=== PATIENT | male | born 1945 | race Caucasian/White ===

== ENCOUNTER 2023-04-09 13:57 | Inpatient (IN) ==
[2023-04-09] MEDS ORDERED: MoRPHine SULFATE 4 MG/ML 1 ML CARP\\VIAL IV PRN (14:10)
[2023-04-09] MEDS ORDERED: ONDANSETRON INJ 2 MG/ML 2 ML VIAL IV STA (14:10)
[2023-04-09] MEDS ORDERED: PANTOprazole 40 MG in SYRINGE 0 ML IV ONE ×2 (14:10→16:40)
[2023-04-09] MEDS ORDERED: SODIUM CHLORIDE 0.9% 1,000 ML IV STA (14:10)
--- NOTE | 2023-04-09 14:15 | Emergency Department Note ---
Impression & Plan Acute upper gastrointestinal bleeding, Abdominal pain, Anemia, Angioedema ED Provider Note NAME: BRIELLE ASHTON AGE: 77 SEX: M : 1945 ARRIVES VIA: Ambulance INFORMANT: Patient, ED PROVIDER(S): Akira Trevizo DO CHIEF COMPLAINT: Abdominal pain HPI: The patient is a 77-year-old male who presented to the emergency department by ambulance for an evaluation of abdominal pain. The patient has a history of recently diagnosed colon cancer was treated with surgery. The patient was treated at [facility]. The patient started noticing dark stool and abdominal pain. He denies having any fever or vomiting. He denies having any chest pain or difficulty breathing. He was seen at the GI office today and sent directly to the emergency department by ambulance. The patient did not have a rectal exam prior to coming to the emergency department. ROS: See above HPI for pertinent positives & negatives. A total of 10 systems reviewed and were otherwise negative. PAST MEDICAL HISTORY: See Below PAST SURGICAL HISTORY: See Below FAMILY HISTORY: See Below SOCIAL HISTORY: See Below HOME MEDICATIONS: See Below ALLERGIES: See Below VITALS: See Below PHYSICAL EXAMINATION: GENERAL: Patient is awake alert in no acute distress patient is resting comfortably and showing no signs of anxiety EYES: The conjunctivae are pale. The pupils are round and reactive. EARS, NOSE, MOUTH AND THROAT: The nose is without any evidence of any deformity. NECK: The neck is nontender and supple. RESPIRATORY: Normal respiratory effort is noted there is no evidence of wheezing rhonchi or rales CARDIOVASCULAR: Regular rate and rhythm noted there no murmurs rubs or gallops normal S1 normal S2. GASTROINTESTINAL: The abdomen was soft and mildly distended. There is diffuse tenderness to palpation but no guarding or rigidity. Rectal exam revealed brown stool which was heme positive. MUSCULOSKELETAL/EXTREMITIES: There is no evidence of gross deformity full range of motion is noted in the hips and shoulders. SKIN: Bilateral pedal edema was noted. Skin was cool and dry. Skin was pale. NEUROLOGIC: Patient is awake alert and oriented x3 MEDICAL DECISION MAKING: The patient is a 77-year-old male who presented to the emergency department for an evaluation of GI bleeding. The patient is status post ileocolectomy for a bowel mass. The patient was at a follow-up appointment when he complained of abdominal pain as well as dark stool. He was sent to the emergency department for further evaluation. The patient was found to have signs of GI bleeding on physical exam. I discussed the patient's laboratory and radiographic studies with him. He was treated with IV fluids as well as IV Protonix. The patient also had some upper lip swelling. The patient states that this has been ongoing for some time. It does appear to be consistent with angioedema and the patient does take an AMARI inhibitor. I discussed the patient's condition with the on- call [facility]. They have agreed to evaluate the patient in the emergency department for further management and disposition. Triage Nursing notes reviewed. Prior medical records reviewed. I reviewed the patient's operative report that the significant other brought with her to the emergency department. Vital Signs: reviewed and remarkable for elevated blood pressure. Differential diagnosis: Etiologies such as appendicitis, diverticulitis, obstruction, inflammatory bowel disease, renal colic, PUD, biliary pathology, pancreatitis, mesenteric ischemia, aortic pathology, infections, genitourinary, UTI, perforated viscus, as well as others were entertained. ER treatment provided: See below Diagnostics interpreted by me: ECG: EKG was obtained in the emergency department. My interpretation is sinus rhythm at 77 bpm. There is no ectopy. Early transition was noted with nonspecific interventricular conduction delay. No previous tracing available. Cardiac Monitoring: An order was placed for continuous cardiac monitoring. The monitor shows a rate of 64 bpm with sinus rhythm. Laboratory studies: As stated above and show below. Imaging studies: See below. Radiographic imaging was reviewed by myself Consultation(s): I discussed this case with Dr. Haider who is on-call for the [facility] group. Past Med/Surg History Medical History Interstitial lung disease Past heart attack Psoriasis GERD (gastroesophageal reflux disease) Oral cancer Surgical History Status post aortic coarctation stent placement History of cancer surgery Social History Smoking Status: Current every day smoker Do You Dip or Chew Tobacco: No; Hx Alcohol Use: No Hx Substance Use: No Preferred Language: Latvian Communication Ability: Effective Visual Impairment: Partially Limited Hearing Ability: Hard of Hearing Shove Up Required: No Beliefs That Will Affect Care: None marital status: Current Living Situation: Spouse and Significant Other current occupational status: disabled Feels Safe at Home: Yes Allergies Allergies Allergy/AdvReac Type Severity Reaction Status Date / Time No Known Allergies Allergy Verified 04/09/23 15:26 Home Meds Home Medications Medication Instructions Recorded Confirmed omega 3 350 mg-dha 235 mg-epa 90 1 cap PO QDL 05/19/18 04/09/23 mg-fish oil 597 mg capsule,delay rel ([place]-3) aspirin 81 mg tablet 81 mg PO DAILY 04/09/23 04/09/23 cholecalciferol (vitamin D3) 50 50 mcg PO DAILY 04/09/23 04/09/23 mcg (2,000 unit) tablet (Vitamin D3) lisinopril 20 mg tablet 20 mg PO QAM 04/09/23 04/09/23 rosuvastatin 10 mg tablet 10 mg PO HS 04/09/23 04/09/23 vitamin B complex 1 tab PO DAILY 04/09/23 04/09/23 vitamin E 100 unit tablet 100 unit PO QAM 04/09/23 04/09/23 Results & Data (ED) Vital Signs Vital Signs - 24 hr 04/09/23 14:04 04/09/23 14:10 04/09/23 14:10 Temperature 36.4 C L 36.6 C Temperature Source Oral Oral Pulse Rate 76 75 Pulse Rate [Apical] 77 Pulse Rate from SpO2 Sensor Respiratory Rate 18 20 Respiratory Effort / Characteristics Non-Labored Spontaneous Respiratory Depth Normal Respiratory Pattern Regular Blood Pressure [Left Arm] 172/47 H Blood Pressure Mean [Left Arm] 88 Blood Pressure Position Sitting Blood Pressure Position [Left Arm] Lying Pulse Oximetry 100 100 100 Oxygen Delivery Method Room Air Room Air Room Air Sepsis Recent Fever Within 48 Hours No Sepsis New/Unexplained Change in Mental Status No Sepsis Action Taken by Nursing No Action Required 04/09/23 14:17 04/09/23 14:20 04/09/23 14:30 Temperature Temperature Source Pulse Rate 75 76 81 Pulse Rate [Apical] Pulse Rate from SpO2 Sensor 78 76 81 Respiratory Rate 19 18 17 Respiratory Effort / Characteristics Respiratory Depth Respiratory Pattern Blood Pressure [Left Arm] Blood Pressure Mean [Left Arm] Blood Pressure Position Blood Pressure Position [Left Arm] Pulse Oximetry 99 100 100 Oxygen Delivery Method Sepsis Recent Fever Within 48 Hours Sepsis New/Unexplained Change in Mental Status Sepsis Action Taken by Nursing 04/09/23 14:40 04/09/23 15:05 04/09/23 15:10 Temperature Temperature Source Pulse Rate 70 74 68 Pulse Rate [Apical] Pulse Rate from SpO2 Sensor 72 75 68 Respiratory Rate 13 19 Respiratory Effort / Characteristics Respiratory Depth Respiratory Pattern Blood Pressure [Left Arm] Blood Pressure Mean [Left Arm] Blood Pressure Position Blood Pressure Position [Left Arm] Pulse Oximetry 98 99 98 Oxygen Delivery Method Sepsis Recent Fever Within 48 Hours Sepsis New/Unexplained Change in Mental Status Sepsis Action Taken by Nursing 04/09/23 15:20 04/09/23 15:30 04/09/23 15:40 Temperature Temperature Source Pulse Rate 70 64 64 Pulse Rate [Apical] Pulse Rate from SpO2 Sensor 62 65 64 Respiratory Rate 17 18 23 Respiratory Effort / Characteristics Respiratory Depth Respiratory Pattern Blood Pressure [Left Arm] Blood Pressure Mean [Left Arm] Blood Pressure Position Blood Pressure Position [Left Arm] Pulse Oximetry 97 97 97 Oxygen Delivery Method Sepsis Recent Fever Within 48 Hours Sepsis New/Unexplained Change in Mental Status Sepsis Action Taken by Nursing 04/09/23 15:50 04/09/23 16:00 04/09/23 16:10 Temperature Temperature Source Pulse Rate 62 60 63 Pulse Rate [Apical] Pulse Rate from SpO2 Sensor 62 60 63 Respiratory Rate 19 19 15 Respiratory Effort / Characteristics Respiratory Depth Respiratory Pattern Blood Pressure [Left Arm] Blood Pressure Mean [Left Arm] Blood Pressure Position Blood Pressure Position [Left Arm] Pulse Oximetry 97 98 100 Oxygen Delivery Method Sepsis Recent Fever Within 48 Hours Sepsis New/Unexplained Change in Mental Status Sepsis Action Taken by Nursing 04/09/23 16:20 04/09/23 16:30 Temperature Temperature Source Pulse Rate 63 64 Pulse Rate [Apical] Pulse Rate from SpO2 Sensor 63 65 Respiratory Rate 18 19 Respiratory Effort / Characteristics Respiratory Depth Respiratory Pattern Blood Pressure [Left Arm] Blood Pressure Mean [Left Arm] Blood Pressure Position Blood Pressure Position [Left Arm] Pulse Oximetry 98 98 Oxygen Delivery Method Room Air Sepsis Recent Fever Within 48 Hours Sepsis New/Unexplained Change in Mental Status Sepsis Action Taken by [facility] Medications Current Medication List: was personally reviewed by me Laboratory Data Attestation: I reviewed the patient's lab results. 04/09/23 14:25 04/09/23 14:25 Lab Results 04/09/23 04/09/23 Range/Units 14:25 14:29 WBC 8.79 (4.8-10.8) K/ul RBC 2.78 L (4.70-6.10) M/uL Hgb 7.6 L (14.0-18.0) g/dl POC Hgb 8.2 L (14.0-18.0) g/dl Hct 24.7 L (42.0-52.0) % POC Hct 24 L (42-52) % MCV 88.8 (80.0-100.0) fL MCH 27.3 (25.0-34.0) pg MCHC 30.8 L (32.0-36.0) g/dL RDW Std Deviation 46.3 (36.4-46.3) fL RDW Coeff of Monet 14.3 (11.5-14.5) % Plt Count 470 H (130-400) K/uL MPV 8.5 L (9.4-12.4) fL Immature Gran % (Auto) 0.3 % Neut % (Auto) 76.6 % Lymph % (Auto) 13.0 % [place] % (Auto) 8.8 % Eos % (Auto) 1.0 % Baso % (Auto) 0.3 % Neut # (Auto) 6.73 H (1.40-6.50) K/uL Lymph # (Auto) 1.14 L (1.20-3.40) K/uL [place] # (Auto) 0.77 H (0.11-0.59) K/uL Eos # (Auto) 0.09 (0.00-0.50) K/uL Baso # (Auto) 0.03 (0.00-0.20) K/uL Immature Gran # (Auto) 0.03 (0.01-0.20) K/uL Polychromasia 1+ PT 10.9 (9.0-12.0) Seconds INR 1.0 (0.9-1.1) APTT 27.2 (21.0-31.0) Seconds PTT Ratio 1.0 POC Sodium 139 (135-144) mmol/L Sodium 139 (136-145) mmol/L POC Potassium 3.6 (3.3-5.0) mmol/L Potassium 3.5 (3.5-5.1) mmol/L POC Chloride 104 (101-112) mmol/L Chloride 107 (98-107) mmol/L Carbon Dioxide 25 (21-32) mmol/L POC Total CO2 23 L (24-31) mmol/L Anion Gap 7 (3-11) POC Anion Gap 17.0 (16-25) mmol/L POC BUN 13 (7-18) mg/dl BUN 15 (6-23) mg/dl Creatinine 0.93 (0.6-1.4) mg/dl POC Creatinine 1.0 (0.6-1.3) mg/dl Est Cr Clr Drug Dosing 70.9 ml/min Est GFR ( Amer) 92.7 ml/min Est GFR (Non-Af Amer) 80.0 ml/min BUN/Creatinine Ratio 16.1 (10-20) Glucose 143 H (70-99(Fasting)) mg/dl POC Glucose (other) 142 H (70-99) mg/dl Calcium 8.9 (8.6-10.3) mg/dl POC Ioniz Calcium Tanner 1.21 (1.12-1.32) mmol/l Total Bilirubin 0.2 (0.2-1.0) mg/dl AST 14 (13-39) U/L ALT 9 (7-52) U/L Alkaline Phosphatase 58 (34-104) U/L Troponin I High Sens 8.4 (0-20) pg/ml Total Protein 6.3 (6.0-8.3) gm/dl Albumin 3.3 L (3.4-5.0) gm/dl Globulin 3.0 (2.5-4.0) gm/dl Albumin/Globulin Ratio 1.1 (0.9-2) Lipase 25 (11-82) U/L Blood Type A Positive Antibody Screen POSITIVE A Administered Medications Morphine Sulfate (Morphine Sulfate 4 Mg/Ml 1 Ml Carp\Vial) 4 mg IV Q15M PRN PRN Reason: Pain Stop: 04/23/23 14:09 Last Admin: 04/09/23 14:34 Dose: 4 mg Documented By: QGV Discontinued Medications Pantoprazole Sodium 40 mg/ (Syringe) 10 mls @ 5 mls/min IV NOW ONE Stop: 04/09/23 14:11 Last Admin: 04/09/23 14:35 Dose: 5 mls/min Documented By: QGV Sodium Chloride (Nss) 1,000 mls @ 999 mls/hr IV .Q1H1M STA Stop: 04/09/23 15:10 Last Admin: 04/09/23 14:36 Dose: 999 mls/hr Documented By: QGV Ioversol (Optiray 320 500ml) 85 ml IV ONCE ONE Stop: 04/09/23 14:59 Last Admin: 04/09/23 14:58 Dose: 85 ml Documented By: ISHAN Ondansetron HCl (Ondansetron Inj 2 Mg/Ml 2 Ml Vial) 4 mg IV NOW STA Stop: 04/09/23 14:11 Last Admin: 04/09/23 14:35 Dose: 4 mg Documented By: QGV Imaging Data Attestation: I personally reviewed and interpreted this imaging study as follows: My Impression: CT of the abdomen and pelvis was obtained in the emergency department. My interpretation is hiatal hernia, no free air, final report below Radiologist's Impression: Abdomen/Pelvis CT 04/09/23 14:[address] WITH IV CONTRAST CT DOSE: 1105.44 mGy.cm HISTORY: Acute GI bleed GIB, abd pain TECHNIQUE: Multiaxial CT images of the abdomen and pelvis were performed following the IV administration of 85 cc of Optiray, A dose lowering technique was utilized adhering to the principles of ALARA. COMPARISON STUDY: None. FINDINGS: Cardiomegaly. Extensive coronary artery calcifications. Bibasilar atelectasis/fibrosis. Right [place] hernia. No free air. Unremarkable spleen, and pancreas. Adrenal gland thickening suggestive of benign hyperplasia. Contracted gallbladder with mild nonspecific wall thickening. Unremarkable liver. Patent portal vein. 4 mm nonobstructing calculus of the inferior pole left kidney. 1.8 cm cyst of the superior pole left kidney. Cysts of the right kidney measure up to 3.3 cm. No ureteral calculi or hydronephrosis. Prostatomegaly. Urinary bladder wall thickening with partial distention. Atherosclerosis of the aorta and branch vessels. Fusiform infrarenal ectasia, 2.6 x 2.7 cm. There is irregular circumferential wall thickening in the distal esophagus which is partially imaged with mucosal hyperemia, image 16 series 3. There are adjacent subcentimeter paraesophageal lymph nodes with inflammatory stranding and small amount of fluid. Upstream fluid distention of the esophagus with moderate sized hiatal hernia. Moderate rectal fecal retention. Colonic diverticulosis. Postoperative changes of right hemicolectomy with ileocolic anastomosis. Postoperative changes of the intra-abdominal wall with small fat filled anterior abdominal wall hernias. No acute fracture. IMPRESSION: 1. Partially imaged irregular circumferential wall thickening with mucosal hyperemia involving the distal esophagus with adjacent inflammatory stranding and small amount of fluid. Differential considerations include a severe esophagitis versus mucosal malignancy. Correlation with endoscopy is needed. 2. Subcentimeter periesophageal lymph nodes. 3. Moderate sized hiatal hernia. 4. Colonic diverticulosis. 5. Left nephrolithiasis. ACT 112: Positive. There are findings on this exam that require communication between the performing entity and the patient following Patient Test Result Information Act ([place] Act 112) guidelines. The above report was generated using voice recognition software. It may contain grammatical, syntax or spelling errors. Electronically signed by: Vamsi Knox M.D. 04/09/2023 3:30 PM Chest X-Ray 04/09/23 14:11 XR chest 1V portable CLINICAL HISTORY: abd pain TECHNIQUE: Single frontal radiograph of the chest was obtained. Comparison: None available at the time of this dictation. FINDINGS: No lines and tubes are seen. Calcified aortic knob is seen. The lungs are clear. No evidence of pleural effusion or pneumothorax. IMPRESSION: No acute chest disease. ACT 112: Negative or not required by law. Electronically signed by: Ricky Hawk M.D. 04/09/2023 3:40 PM Discharge Plan Visit Data Chief Complaint: Abdominal Pain Stated Complaint: abdominal pain ED Provider: Akira Trevizo Discharge Problem: Acute upper gastrointestinal bleeding, Abdominal pain, Anemia, Angioedema Patient Disposition: Being Evaluated by Hospitalist Forms Stand Alone Forms: [facility] Prescriptions Prescriptions: No Action [place]-3 350 mg-235 mg- 90 mg-597 mg Capsule,Delayed Release(Dr/Ec) 1 cap PO QDL lisinopril 20 mg tablet 20 mg PO QAM vitamin B complex Tablet 1 tab PO DAILY aspirin 81 mg Tablet 81 mg PO DAILY vitamin E 100 unit Tablet 100 unit PO QAM rosuvastatin 10 mg tablet 10 mg PO HS cholecalciferol (vitamin D3) [Vitamin D3] 50 mcg (2,000 unit) Tablet 50 mcg PO DAILY Referrals Referrals: PCP,NO [Physician] - Discharge Problem: Abdominal pain Qualifiers: Abdominal location: generalized Qualified Code(s): R10.84 - Generalized abdominal pain Anemia Qualifiers: Anemia type: unspecified type Qualified Code(s): D64.9 - Anemia, unspecified Angioedema Qualifiers: Encounter type: initial encounter Qualified Code(s): T78.3XXA - Angioneurotic edema, initial encounter
[2023-04-09 14:42] LABS: iSTAT Hemoglobin 8.2 g/dl (14.0-18.0); iSTAT Ionized Calcium 1.21 mmol/l (1.12-1.32); iSTAT Potassium 3.6 mmol/L (3.3-5.0)
[2023-04-09 14:48] LABS: Basophils # (auto) 0.03 K/uL (0.00-0.20); Basophils % (auto) 0.3 %; Eosinophils # (auto) 0.09 K/uL (0.00-0.50); Hematocrit (blood only) 24.7 % (42.0-52.0); Hemoglobin 7.6 g/dl (14.0-18.0); Immature Granulocytes # (auto) 0.03 K/uL (0.01-0.20); Immature Granulocytes % (auto) 0.3 %; Lymphocytes # (auto) 1.14 K/uL (1.20-3.40); Mean Corpuscular Hemoglobin 27.3 pg (25.0-34.0); Mean Corpuscular Hgb Conc 30.8 g/dL (32.0-36.0); Mean Corpuscular Volume 88.8 fL (80.0-100.0); Mean Platelet Volume 8.5 fL (9.4-12.4); Monocytes # (auto) 0.77 K/uL (0.11-0.59); Monocytes % (auto) 8.8 %; Neutrophils # (auto) 6.73 K/uL (1.40-6.50); Neutrophils % (auto) 76.6 %; Platelet Count 470 K/uL (130-400); RDW Coefficient of Variation 14.3 % (11.5-14.5); RDW Standard Deviation 46.3 fL (36.4-46.3); Red Blood Count 2.78 M/uL (4.70-6.10); White Blood Count 8.79 K/ul (4.8-10.8)
[2023-04-09] MEDS ORDERED: OPTIRAY 320 500ml IV ONE (14:58)
[2023-04-09 15:00] LABS: Albumin Globulin Ratio 1.1 (0.9-2); Albumin Level 3.3 gm/dl (3.4-5.0); BUN Creatinine Ratio 16.1 (10-20); Bilirubin,Total 0.2 mg/dl (0.2-1.0); Calcium 8.9 mg/dl (8.6-10.3); Creatinine Clr Calc Pharmacy 70.9 ml/min; Est GFR (African American) 92.7 ml/min; Potassium 3.5 mmol/L (3.5-5.1); Total Protein 6.3 gm/dl (6.0-8.3)
[2023-04-09 15:07] LABS: Polychromasia 1+; Troponin I High Sensitivity 8.4 pg/ml (0-20)
[2023-04-09 15:14] LABS: Partial Thromboplastin Time 27.2 Seconds (21.0-31.0); Prothrombin Time 10.9 Seconds (9.0-12.0)
--- NOTE | 2023-04-09 15:31 | CT Scan Report ---
ABDOMEN AND PELVIS CT WITH IV CONTRAST CT DOSE: 1105.44 mGy.cm HISTORY: Acute GI bleed GIB, abd pain TECHNIQUE: Multiaxial CT images of the abdomen and pelvis were performed following the IV administrat ion of 85 cc of Optiray, A dose lowering technique was utilized adhering to the principles of ALARA. COMPARISON STUDY: None. FINDINGS: Cardiomegaly. Extensive coronary artery calcifications. Bibasilar atelectasis/fibrosis. Rig ht [place] hernia. No free air. Unremarkable spleen, and pancreas. Adrenal gland thickening suggest brian of benign hyperplasia. Contracted gallbladder with mild nonspecific wall thickening. Unremarkable liver. Patent portal vein. 4 mm nonobstructing calculus of the inferior pole left kidney. 1.8 cm cyst of the superior pole left kidney. Cysts of the right kidney measure up to 3.3 cm. No ureteral calculi or hydronephrosis. Prosta tomegaly. Urinary bladder wall thickening with partial distention. Atherosclerosis of the aorta and b [place] vessels. Fusiform infrarenal ectasia, 2.6 x 2.7 cm. There is irregular circumferential wall thickening in the distal esophagus which is partially imaged with mucosal hyperemia, image 16 series 3. There are adjacent subcentimeter paraesophageal lymph node s with inflammatory stranding and small amount of fluid. Upstream fluid distention of the esophagus w ith moderate sized hiatal hernia. Moderate rectal fecal retention. Colonic diverticulosis. Postoperat brian changes of right hemicolectomy with ileocolic anastomosis. Postoperative changes of the intra-abd ominal wall with small fat filled anterior abdominal wall hernias. No acute fracture. IMPRESSION: 1. Partially imaged irregular circumferential wall thickening with mucosal hyperemia involving the di stal esophagus with adjacent inflammatory stranding and small amount of fluid. Differential considera tions include a severe esophagitis versus mucosal malignancy. Correlation with endoscopy is needed. 2. Subcentimeter periesophageal lymph nodes. 3. Moderate sized hiatal hernia. 4. Colonic diverticulosis. 5. Left nephrolithiasis. ACT 112: Positive. There are findings on this exam that require communication between the performing entity and the patient following Patient Test Result Information Act ([place] Act 112) guidelines. The above report was generated using voice recognition software. It may contain grammatical, syntax o r spelling errors. Electronically signed by: Vamsi Knox M.D. 04/09/2023 3:30 PM
--- NOTE | 2023-04-09 15:41 | XRay Report ---
XR chest 1V portable CLINICAL HISTORY: abd pain TECHNIQUE: Single frontal radiograph of the chest was obtained. Comparison: None available at the time of this dictation. FINDINGS: No lines and tubes are seen. Calcified aortic knob is seen. The lungs are clear. No evidence of pleur al effusion or pneumothorax. IMPRESSION: No acute chest disease. ACT 112: Negative or not required by law. Electronically signed by: Ricky Hawk M.D. 04/09/2023 3:40 PM
--- NOTE | 2023-04-09 16:45 | History & Physical Report ---
Date of Service April 09, 2023 Assessment & Plan (1) Acute upper gastrointestinal bleeding: Plan: Last known Hgb 9.2 March 11 on [facility] [place] EHR Admission Hemoglobin 7.6 Pantoprazole 80mg IV bolus and drip Trend Hgb q6h Transfuse to aim Hgb > 7 NPO Consult gastroenterology (2) Colon adenocarcinoma: Plan: s/p laparoscopic assisted ascending colectomy Well-differentiated with resection margins uninvolved Followed up with colorectal surgeon today (3) Past heart attack: Plan: Prior 9 stent per patient reports Hold aspirin and lisinopril Continue rosuvastatin (4) Acute blood loss anemia: Plan VTE Prophylaxis - chemical contraindicated Diet - NPO Disposition - admit to med/tele Admission and Anticipated Discharge Date Admission Date: April 09, 2023 History of Present Illness Chief Complaint: Epigastric/chest pain Primary Care Provider: Vahid Arora Steve Lopez is a 77 year old male who presents to the ER with epigastric pain, generalized weakness and fatigue. Very difficult to get a good history from the patient but generally he had laparoscopic assisted ascending colectomy at [facility] on March 04. He had a routine outpatient follow up with his colorectal surgeon today and he appeared pale with generalized fatigue therefore sent to the ER for further evaluation. His last hemoglobin pulled from the [facility] EHR was 9.2 on March 11 (day prior to discharge). Per outpatient note he was having chest.epigastric pain since thanksgi however er patient it has been going on for months intermittently. He denies any current pain but his last pain was earlier today last 2 hours prior to arrival in the ER. Pain is not exertion and associated with food. He takes tums every night for heartburn. No NSAID use. Takes a daily aspirin for history of heart attack with 9 prior stents per report. He also notes a history of stomach ulcers and bleeds - his son notes in 2003 he was found in a puddle of blood, but does not take any PPI or H2 darius. Triage reports melena although the patient denies this to me and is only having a bowel movement once or twice a week. Allergies Allergy/AdvReac Type Severity Reaction Status Date / Time No Known Allergies Allergy Verified 04/09/23 15:26 Home Medications Medication Instructions Recorded Confirmed Type omega 3 350 mg-dha 235 mg-epa 90 1 cap PO QDL 05/19/18 04/09/23 History mg-fish oil 597 mg capsule,delay rel ([place]-3) aspirin 81 mg tablet 81 mg PO DAILY 04/09/23 04/09/23 History cholecalciferol (vitamin D3) 50 50 mcg PO DAILY 04/09/23 04/09/23 History mcg (2,000 unit) tablet (Vitamin D3) lisinopril 20 mg tablet 20 mg PO QAM 04/09/23 04/09/23 History rosuvastatin 10 mg tablet 10 mg PO HS 04/09/23 04/09/23 History vitamin B complex 1 tab PO DAILY 04/09/23 04/09/23 History vitamin E 100 unit tablet 100 unit PO QAM 04/09/23 04/09/23 History Past Med/Surg History Medical History (Updated 04/10/23 @ 06:41 by Graham Haider MD) Interstitial lung disease Past heart attack Psoriasis GERD (gastroesophageal reflux disease) 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 Surgical History Status post aortic coarctation stent placement History of cancer surgery Social History Smoking Status: Current every day smoker Tobacco Type: Cigarettes Do You Dip or Chew Tobacco: No; Hx Alcohol Use: No Hx Substance Use: No Preferred Language: Citizen Of [place] Communication Ability: Effective Visual Impairment: Partially Limited Hearing Ability: Hard of Hearing Cloth Presser Required: No Beliefs That Will Affect Care: None marital status: Current Living Situation: Significant Other current occupational status: disabled Feels Safe at Home: Yes Assistive Devices: Cane Review of Systems Review of Systems: All systems reviewed & are unremarkable except as noted in HPI & below Physical Exam Constitutional: WD/WN, vitals as above ENMT: Micrognathia Respiratory: normal respiratory effort, lungs clear to auscultation Cardiovascular: RRR, no murmur, no edema Gastrointestinal (Abdomen): Inspection/Auscultation: abdomen normal to inspection Percussion/Palpation: + abdomen tender (epigastric) and abdomen soft; no guarding and abdomen not rigid Skin: no rashes, warm and dry Neurologic: moves all extremities and awake; not confused Results & Data Results & Data Vital Signs (Past 12 Hours) Vital Signs Temp Pulse Pulse Resp BP Pulse Ox O2 Del Method 04/09/23 16:30 64 19 98 Room Air 04/09/23 16:20 63 18 98 04/09/23 16:10 63 15 100 04/09/23 16:00 60 19 98 04/09/23 15:50 62 19 97 04/09/23 15:40 64 23 97 04/09/23 15:30 64 18 97 04/09/23 15:20 70 17 97 04/09/23 15:10 68 19 98 04/09/23 15:05 74 13 99 04/09/23 14:40 70 98 04/09/23 14:30 81 17 100 04/09/23 14:20 76 18 100 04/09/23 14:17 75 19 99 04/09/23 14:10 36.6 C 77 20 172/47 H 100 Room Air 04/09/23 14:10 75 100 Room Air 04/09/23 14:04 36.4 C L 76 18 100 Room Air Laboratory Results Abnormal lab results 04/09/23 04/09/23 Range/Units 14:25 14:29 RBC 2.78 L (4.70-6.10) M/uL Hgb 7.6 L (14.0-18.0) g/dl POC Hgb 8.2 L (14.0-18.0) g/dl Hct 24.7 L (42.0-52.0) % POC Hct 24 L (42-52) % MCHC 30.8 L (32.0-36.0) g/dL Plt Count 470 H (130-400) K/uL MPV 8.5 L (9.4-12.4) fL Neut # (Auto) 6.73 H (1.40-6.50) K/uL Lymph # (Auto) 1.14 L (1.20-3.40) K/uL [place] # (Auto) 0.77 H (0.11-0.59) K/uL POC Total CO2 23 L (24-31) mmol/L Glucose 143 H (70-99(Fasting)) mg/dl POC Glucose (other) 142 H (70-99) mg/dl Albumin 3.3 L (3.4-5.0) gm/dl Antibody Screen POSITIVE A Diagnostic Findings XR chest 1V portable CLINICAL HISTORY: abd pain TECHNIQUE: Single frontal radiograph of the chest was obtained. Comparison: None available at the time of this dictation. FINDINGS: No lines and tubes are seen. Calcified aortic knob is seen. The lungs are clear. No evidence of pleural effusion or pneumothorax. IMPRESSION: No acute chest disease. ABDOMEN AND PELVIS CT WITH IV CONTRAST CT DOSE: 1105.44 mGy.cm HISTORY: Acute GI bleed GIB, abd pain TECHNIQUE: Multiaxial CT images of the abdomen and pelvis were performed following the IV administration of 85 cc of Optiray, A dose lowering technique was utilized adhering to the principles of ALARA. COMPARISON STUDY: None. FINDINGS: Cardiomegaly. Extensive coronary artery calcifications. Bibasilar atelectasis/fibrosis. Right Bochdalek hernia. No free air. Unremarkable spleen, and pancreas. Adrenal gland thickening suggestive of benign hyperplasia. Contracted gallbladder with mild nonspecific wall thickening. Unremarkable liver. Patent portal vein. 4 mm nonobstructing calculus of the inferior pole left kidney. 1.8 cm cyst of the superior pole left kidney. Cysts of the right kidney measure up to 3.3 cm. No ureteral calculi or hydronephrosis. Prostatomegaly. Urinary bladder wall thickening with partial distention. Atherosclerosis of the aorta and branch vessels. Fusiform infrarenal ectasia, 2.6 x 2.7 cm. There is irregular circumferential wall thickening in the distal esophagus which is partially imaged with mucosal hyperemia, image 16 series 3. There are adjacent subcentimeter paraesophageal lymph nodes with inflammatory stranding and small amount of fluid. Upstream fluid distention of the esophagus with moderate sized hiatal hernia. Moderate rectal fecal retention. Colonic diverticulosis. Postoperative changes of right hemicolectomy with ileocolic anastomosis. Postoperative changes of the intra-abdominal wall with small fat filled anterior abdominal wall hernias. No acute fracture. IMPRESSION: 1. Partially imaged irregular circumferential wall thickening with mucosal hyperemia involving the distal esophagus with adjacent inflammatory stranding and small amount of fluid. Differential considerations include a severe esophagitis versus mucosal malignancy. Correlation with endoscopy is needed. 2. Subcentimeter periesophageal lymph nodes. 3. Moderate sized hiatal hernia. 4. Colonic diverticulosis. 5. Left nephrolithiasis. Medications Administered ER Medications Given: Pantoprazole 40mg IV Normal saline 1000ml bolus Ondansetron 4mg IV ECG Rate (beats per minute): 75 Rhythm: other (accelerated junctional rhythm) Findings: + LAFB Comparison ECG Date: no prior available Code Status & VTE Plan Code Status Full VTE Prophylaxis Plan VTE Prophylaxis will be ordered: No PG Care Time/CCT Total # of Minutes Spent Total Time Spent with Patient: Total time spent is greater than 50% in coordination of care (as documented) at patient's floor/unit and/or counseling patient: Coding Level of Care Code 89495 INT INP/OBS CARE 2/55MIN Diagnoses Acute upper gastrointestinal bleeding K92.2 Colon adenocarcinoma C18.9 Past heart attack I25.2 Acute blood loss anemia D62
[2023-04-09] MEDS: PANTOprazole 40 MG in DEXTROSE 5% MINI-B 100 ML IV SCH (17:40)
--- NOTE | 2023-04-09 18:04 | Electrocardiogram Report ---
Test Reason : Blood Pressure : / mmHG Vent. Rate : 077 BPM Atrial Rate : 000 BPM P-R Int : 000 ms QRS Dur : 110 ms QT Int : 404 ms P-R-T Axes : 000 -83 044 degrees QTc Int : 457 ms sinus rhythm Left anterior fascicular block Abnormal ECG No previous ECGs available Confirmed by Marck Eddy ([id number]) on 04/09/2023 6:03:52 PM Referred By: Confirmed By:Chong Eddy
[2023-04-09] MEDS ORDERED: ONDANSETRON INJ 2 MG/ML 2 ML VIAL IV PRN (20:52)
[2023-04-09 20:57] LABS: Hematocrit (blood only) 22.5 % (42.0-52.0); Hemoglobin 6.8 g/dl (14.0-18.0); Mean Corpuscular Hemoglobin 26.9 pg (25.0-34.0); Mean Corpuscular Hgb Conc 30.2 g/dL (32.0-36.0); Mean Corpuscular Volume 88.9 fL (80.0-100.0); Mean Platelet Volume 8.5 fL (9.4-12.4); Platelet Count 391 K/uL (130-400); RDW Coefficient of Variation 14.3 % (11.5-14.5); RDW Standard Deviation 46.6 fL (36.4-46.3); Red Blood Count 2.53 M/uL (4.70-6.10); White Blood Count 7.89 K/ul (4.8-10.8)
[2023-04-09] MEDS ORDERED: SODIUM CHLORIDE 0.9% 250 ML IV PRN (21:04)
[2023-04-09] MEDS: ROSUVASTATIN CALCIUM 10 MG TAB PO SCH (22:26)
--- OUTSIDE RECORDS SUMMARY | 2023-04-10 00:08 | External Medical Summary | Continuity of Care Document ---
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 Role Phone Gumaro Arora Primary Care Physician [phone] Encounter [facility] [id number] Date(s): 03/04/23 - 03/12/[address] [phone] [phone] Encounter Diagnosis Coronary artery disease(Discharge Diagnosis) - 03/09/23 Anemia, blood loss(Discharge Diagnosis) - 03/09/23 Acute GI hemorrhage(Discharge Diagnosis) - 03/09/23 Hypovolemia(Discharge Diagnosis) - 03/09/23 Hypotensive syncope(Discharge Diagnosis) - 03/09/23 S/P partial colectomy(Discharge Diagnosis) - 03/12/23 Colon cancer(Discharge Diagnosis) - 03/04/23 Discharge Disposition: Home or Self Care Attending Physician: MD Spain Michael J Admitting Physician: MD Spain Michael J Allergies, Adverse Reactions, Alerts No Known Medication Allergies Functional Status 03/12/23 Neurological Symptoms None ADLs Minimal assistance Facial Symmetry Symmetric Gait Unsteady Swallowing Difficulty None Level of Consciousness Neuro Alert Hallucinations Present None History of Fall in Last 3 Months Darnell N o Presence of Secondary Diagnosis Darnell Ye s Use of Ambulatory Aid Darnell Crutches/can e/walker IV/Heparin Lock Fall Risk Darnell Yes Gait/Transferring Fall Risk Darnell Weak Mental Status Fall Risk Darnell Forgets li mitations Darnell Fall Risk Score 75 Darnell Fall Risk High risk Speech Pattern Clear Medications amLODIPine 5 mg oral tablet Start: 02/19/23 10:47:00 EDT, 1 tab, PO, Daily Start Date: 02/19/23 Status: Ordered aspirin 81 mg oral delayed release tablet Start: 03/01/23 14:53:00 EDT, 1 tab, PO, Daily Start Date: 03/01/23 Status: Ordered nitroglycerin 0.4 mg sublingual tablet Start: 02/19/23 10:48:00 EDT, 1 tab, SL, q5min, Disp# 25 tab, PRN: as needed for chest pain Start Date: 02/19/23 Status: Ordered oxyCODONE 5 mg oral tablet Start: 03/05/23 14:02:00 EDT, 1 tab, PO, q4h, Disp# 20 tab, Refills: 0, PRN: as needed for pain, Pharmacy: [facility] Start Date: 03/05/23 Status: Ordered rosuvastatin 10 mg oral tablet Start: 02/19/23 10:47:00 EDT, 1 tab, PO, Daily Start Date: 02/19/23 Status: Ordered Tums 500 mg oral tablet, chewable Start: 03/01/23 15:25:00 EDT, 1 tab, PO, tid, PRN: as needed for indigestion Start Date: 03/01/23 Status: Ordered Tylenol 500 mg oral tablet Start: 03/05/23 14:03:00 EDT, 2 tab, PO, q8h, Disp# 50 tab, PRN: as needed for fever, Pharmacy: [facility] Start Date: 03/05/23 Status: Ordered Mental Status 03/04/23 Communication Barrier Present No Primary Language Yi Problem List Condition Confirmation Course Effective Dates Status Health St [facility] Informant Tobacco user Confirmed Active Diagnosis Diagnosis Type Effective Dates Health Status Clinical Service Informant Colon cancer Discharge Diagnosis 03/04/23 Non-Specified Anemia, blood loss Discharge Diagnosis 03/09/23 Non-Specified Coronary artery disease Discharge Diagnosis 03/09/23 Non-Specified Acute GI hemorrhage Discharge Diagnosis 03/09/23 Non-Specified Hypovolemia Discharge Diagnosis 03/09/23 Non-Specified Hypotensive syncope Discharge Diagnosis 03/09/23 Non-Specified S/P partial colectomy Discharge Diagnosis 03/12/23 Procedures Procedure Date Related Diagnosis Body Site Status partial L mandibulectomy wit h L neck dissection and tracheostomy 2011 Comp leted Leg repair, left leg Comp leted Nose operation Completed Results Laboratory List Name Date Complete Blood Count (CBC w Platelets) 1 05/11/22 Magnesium Level (Mg Level) 03/11/23 Nephrology Panel 03/11/23 Troponin T 03/10/23 Complete Blood Count (CBC w Platelets) 1 05/10/22 Thrombelastograph (TEG) 03/10/23 Thrombelastograph (TEG) 03/10/23 Troponin T 03/10/23 Complete Blood Count (CBC w Platelets) 1 05/10/22 Magnesium Level (Mg Level) 03/10/23 Nephrology Panel 03/10/23 Troponin T 03/10/23 Lactic Acid Level 03/09/23 Blood Type/Antibody Screen ( for possible transfusion) (Type and Screen (for possible transfusion)) 03/09/23 Lactic Acid Level 03/09/23 Nephrology Panel 03/09/23 Partial Thromboplastin Time (PTT) Prothrombin Time w/ INR (PT/INR) 3 Glucose Meter (GLUCOSE METER) 03/09/23 Magnesium Level (Mg Level) 03/09/23 Complete Blood Count w Differential (CBC w Platelets and Diff) 03/05/23 Complete Blood Count w Differential (CBC w Platelets and Diff) 03/04/23 IStat Gases, Arterial (ANES) (I-STAT GAS ,ART(ANES)) 03/04/23 Calcium, Ionized 03/04/23 Prothrombin Time w/ INR (INR) 03/04/23 Specimen Type (SPECIMEN TYPE) 03/04/23 Blood Type (ABO/Rh) 03/04/23 Blood Type/Antibody Screen ( for possible transfusion) (Type and Screen (for possible transfusion)) 03/04/23 Urine Analysis w/ Reflexed Microscopic. (UA w/ Reflexed Microscopic.) 03/04/23 Most recent to oldest [Reference Range]: 1 2 3 Hct, POC [38-51 %] 39 % (03/04/23 1:09 PM) Hgb, POC [12-17 g/dL] 13.3 g/dL (03/04/23 1:09 PM) ABO/Rh A POSITIVE (03/09/23 12:20 PM) A POSITIVE (03/04/23 10:00 AM) A POSITIVE (03/04/23 9:59 AM) Antibody Scr POSITIVE (03/09/23 12:20 PM) POSITIVE (03/04/23 9:59 AM) Antibody ID Anti-E, (03/09/23 12:20 PM) Anti-E, (03/04/23 9:59 AM) Expires at 0600AM on 03/12/2023 (03/09/23 12:20 PM) 03/07/2023 (03/04/23 9:59 AM) # Units 1 (03/09/23 12:20 PM) 0 (03/04/23 9:59 AM) R Number NRQ (03/09/23 12:20 PM) NRQ (03/04/23 9:59 AM) eGFR CKD-EPI [>60 mL/min/1.73 m2] >90 mL/min/1.73 m2 (03/11/23 8:38 AM) >90 mL/min/1.73 m2 (03/10/23 9:37 AM) >90 mL/min/1.73 m2 (03/09/23 12:33 PM) Base Deficit, POC 3 mmol/L (03/04/23 1:09 PM) Glu (wb), POC by IStat [70-105 mg/dL] 155 mg/dL *HI* (03/04/23 1:09 PM) SaO2(a), POC [92-98 %] 100 % *HI* (03/04/23 1:09 PM) Estimated CrCl 97.39 mL/min (03/11/23 10:07 AM) 106.97 mL/min (03/10/23 11:05 AM) 80.55 mL/min (03/09/23 1:37 PM) Troponin T [<0.010 ng/mL] 0.056 ng/mL 1 *HI* (03/10/23 1:20 PM) 0.083 ng/mL 2 *HI* (03/10/23 6:49 AM) 0.093 ng/mL 3 *HI* (03/10/23 1:29 AM) Troponin T [place] cTnT NEGATIVE (03/10/23 1:20 PM) Delta cTnT NEGATIVE (03/10/23 6:49 AM) Delta cTnT NEGATIVE (03/10/23 1:29 AM) MPV [9.0-12.2 fL] 9.4 fL (03/11/23 8:38 AM) 9.4 fL (03/10/23 4:11 PM) 9.3 fL (03/10/23 9:37 AM) Immature Gran% 0.4 % (03/05/23 7:04 AM) 0.4 % (03/04/23 3:16 PM) Neut% 79.2 % (03/05/23 7:04 AM) 82.9 % (03/04/23 3:16 PM) Lymph% 11.7 % (03/05/23 7:04 AM) 12.6 % (03/04/23 3:16 PM) [place]% 8.6 % (03/05/23 7:04 AM) 3.5 % (03/04/23 3:16 PM) Baso% 0.1 % (03/05/23 7:04 AM) 0.3 % (03/04/23 3:16 PM) Eos% 0.0 % (03/05/23 7:04 AM) 0.3 % (03/04/23 3:16 PM) Immat Gran, Abs [0-0.4 K/uL] 0.06 K/uL (03/05/23 7:04 AM) 0.06 K/uL (03/04/23 3:16 PM) Neut, Abs [2.0-7.7 K/uL] 10.65 K/uL *HI* (03/05/23 7:04 AM) 12.89 K/uL *HI* (03/04/23 3:16 PM) Lymph, Abs [1.0-3.4 K/uL] 1.57 K/uL (03/05/23 7:04 AM) 1.95 K/uL (03/04/23 3:16 PM) [place], Abs [0-1.0 K/uL] 1.15 K/uL *HI* (03/05/23 7:04 AM) 0.54 K/uL (03/04/23 3:16 PM) Baso, Abs [0-0.1 K/uL] 0.02 K/uL (03/05/23 7:04 AM) 0.05 K/uL (03/04/23 3:16 PM) Eos, Abs [0-0.5 K/uL] 0.00 K/uL (03/05/23 7:04 AM) 0.04 K/uL (03/04/23 3:16 PM) Type of Diff: AUTO (03/05/23 7:04 AM) AUTO (03/04/23 3:16 PM) RDW [11.5-14.2 %] 16.0 % *HI* (03/11/23 8:38 AM) 16.7 % *HI* (03/10/23 4:11 PM) 16.7 % *HI* (03/10/23 9:37 AM) Ag Info E Negative, (03/04/23 9:59 AM) pH (a), POC [7.35-7.45 unit] 7.286 unit *LOW* (03/04/23 1:09 PM) pCO2 (a), POC [35-45 mmHg] 50.0 mmHg *HI* (03/04/23 1:09 PM) pO2 (a), POC [80-105 mmHg] 230 mmHg *HI* (03/04/23 1:09 PM) HCO3(a), POC [22-26 mmol/L] 24.3 mmol/L (03/04/23 1:09 PM) Ion Ca(wb), POC [1.12-1.32 mmol/L] 1.17 mmol/L (03/04/23 1:09 PM) Na (wb), POC [138-146 mmol/L] 138 mmol/L (03/04/23 1:09 PM) K (wb), POC [3.5-4.9 mmol/L] 4.0 mmol/L (03/04/23 1:09 PM) Component RED CELLS (03/09/23 12:20 PM) RED CELLS (03/04/23 9:59 AM) Squamous Epithelial Cells (u) FEW (03/04/23 11:55 AM) Mucous (u) MODERATE (03/04/23 11:55 AM) Anion Gap [5-14 mmol/L] 7 mmol/L (03/11/23 8:38 AM) 8 mmol/L (03/10/23 9:37 AM) 11 mmol/L (03/09/23 12:33 PM) Alb [3.5-5.2 g/dL] 2.7 g/dL *LOW* (03/11/23 8:38 AM) 2.9 g/dL *LOW* (03/10/23 9:37 AM) 2.8 g/dL *LOW* (03/09/23 12:33 PM) Bact (u) [NONE-NONE] MANY *Abnormal* (03/04/23 11:55 AM) Bili (u) [NEG] NEGATIVE 4 (03/04/23 11:55 AM) BUN [6-23 mg/dL] 16 mg/dL (03/11/23 8:38 AM) 28 mg/dL 5 *HI* (03/10/23 9:37 AM) 44 mg/dL *HI* (03/09/23 12:33 PM) Ca [8.4-10.2 mg/dL] 8.2 mg/dL *LOW* (03/11/23 8:38 AM) 8.1 mg/dL *LOW* (03/10/23 9:37 AM) 8.4 mg/dL (03/09/23 12:33 PM) Ion Ca [1.15-1.27 mmol/L] 1.14 mmol/L *LOW* (03/04/23 10:05 AM) Cl- [98-107 mmol/L] 111 mmol/L *HI* (03/11/23 8:38 AM) 113 mmol/L *HI* (03/10/23 9:37 AM) 113 mmol/L *HI* (03/09/23 12:33 PM) HCO3 [22-29 mmol/L] 22 mmol/L (03/11/23 8:38 AM) 23 mmol/L (03/10/23 9:37 AM) 19 mmol/L *LOW* (03/09/23 12:33 PM) Cret [0.70-1.30 mg/dL] 0.67 mg/dL *LOW* (03/11/23 8:38 AM) 0.61 mg/dL *LOW* (03/10/23 9:37 AM) 0.81 mg/dL (03/09/23 12:33 PM) BF Source OR (03/04/23 10:05 AM) Glu [74-109 mg/dL] 104 mg/dL 6 (03/11/23 8:38 AM) 107 mg/dL 7 (03/10/23 9:37 AM) 120 mg/dL 8 *HI* (03/09/23 12:33 PM) Gluc Meter [74-109 mg/dL] 114 mg/dL *HI* (03/09/23 12:05 PM) Hct [39-48 %] 28.2 % *LOW* (03/11/23 8:38 AM) 25.8 % *LOW* (03/10/23 4:11 PM) 30.6 % *LOW* (03/10/23 9:37 AM) Hgb [13.0-17.0 g/dL] 9.2 g/dL *LOW* (03/11/23 8:38 AM) 8.4 g/dL *LOW* (03/10/23 4:11 PM) 10.1 g/dL *LOW* (03/10/23 9:37 AM) INR [0.9-1.1] 1.1 9 (03/09/23 12:33 PM) 1.0 10 (03/04/23 10:05 AM) K [3.5-5.1 mmol/L] 4.1 mmol/L (03/11/23 8:38 AM) 3.7 mmol/L (03/10/23 9:37 AM) 4.2 mmol/L (03/09/23 12:33 PM) Ketones [NEG mg/dL] NEGATIVE mg/dL (03/04/23 11:55 AM) Lactate [0.5-2.2 mmol/L] 1.6 mmol/L (03/09/23 3:14 PM) 2.6 mmol/L *HI* (03/09/23 12:33 PM) Leuk Est [NEG] MODERATE 11 *Abnormal* (03/04/23 11:55 AM) MCH [28-33 pg] 30.5 pg (03/11/23 8:38 AM) 29.9 pg (03/10/23 4:11 PM) 30.1 pg (03/10/23 9:37 AM) MCHC [32-36 g/dL] 32.6 g/dL (03/11/23 8:38 AM) 32.6 g/dL (03/10/23 4:11 PM) 33.0 g/dL (03/10/23 9:37 AM) MCV [81-96 fL] 93.4 fL (03/11/23 8:38 AM) 91.8 fL (03/10/23 4:11 PM) 91.1 fL (03/10/23 9:37 AM) Mg [1.6-2.6 mg/dL] 2.1 mg/dL (03/11/23 8:38 AM) 2.3 mg/dL (03/10/23 9:37 AM) 2.1 mg/dL (03/09/23 5:32 AM) Na [136-145 mmol/L] 140 mmol/L (03/11/23 8:38 AM) 144 mmol/L (03/10/23 9:37 AM) 143 mmol/L (03/09/23 12:33 PM) Nitrite (u) [NEG] POSITIVE 12 *Abnormal* (03/04/23 11:55 AM) PO4 [2.5-4.5 mg/dL] 3.1 mg/dL (03/11/23 8:38 AM) 2.5 mg/dL (03/10/23 9:37 AM) 3.6 mg/dL (03/09/23 12:33 PM) Plts [150-350 K/uL] 219 K/uL (03/11/23 8:38 AM) 208 K/uL (03/10/23 4:11 PM) 226 K/uL (03/10/23 9:37 AM) PT [12.0-14.2 seconds] 14.2 seconds (03/09/23 12:33 PM) 13.1 seconds (03/04/23 10:05 AM) PTT [23-35 seconds] 28 seconds (03/09/23 12:33 PM) RBC [4.40-5.60 M/uL] 3.02 M/uL *LOW* (03/11/23 8:38 AM) 2.81 M/uL *LOW* (03/10/23 4:11 PM) 3.36 M/uL *LOW* (03/10/23 9:37 AM) Temp(a) 35.5 C (03/04/23 1:09 PM) Appear (u) CLEAR (03/04/23 11:55 AM) Color (u) YELLOW (03/04/23 11:55 AM) Glu (u) [NEG mg/dL] NEGATIVE mg/dL 13 (03/04/23 11:55 AM) Hgb (u) [NEG] NEGATIVE 14 (03/04/23 11:55 AM) pH (u) [5.0-8.0 unit] 7.0 unit (03/04/23 11:55 AM) Prot (u) [NEG mg/dL] NEGATIVE mg/dL (03/04/23 11:55 AM) RBC (u) [0-4 /HPF] 0-4 /HPF (03/04/23 11:55 AM) Urobili [0.1-1.0 EU/dL] 0.1-1.0 EU/dL (03/04/23 11:55 AM) SG [1.005-1.030] 1.011 (03/04/23 11:55 AM) WBC (u) [0-4 /HPF] 20-29 /HPF (03/04/23 11:55 AM) WBC [4.0-10.4 K/uL] 6.28 K/uL (03/11/23 8:38 AM) 8.64 K/uL (03/10/23 4:11 PM) 9.06 K/uL (03/10/23 9:37 AM) Act Clot Time ( R) [5.0-10.0 minute] 4.1 minute *LOW* (03/10/23 10:06 AM) REQUEST CREDITED minute 15 (03/10/23 8:30 AM) Platelet Agg (MA) [50.0-70.0 mm] 66.1 mm (03/10/23 10:06 AM) REQUEST CREDITED mm 16 (03/10/23 8:30 AM) Fibrinogen Act (ANG) [53.0-72.0 deg] 73.4 deg *HI* (03/10/23 10:06 AM) REQUEST CREDITED deg 17 (03/10/23 8:30 AM) TEG Interpretation NORMAL, BASED ON THE ABOVE PARAMETERS (03/10/23 10:06 AM) REQUEST CREDITED 18 (03/10/23 8:30 AM) Fibrinolysis (LY30) [0-7.5 %] 0.6 % (03/10/23 10:06 AM) REQUEST CREDITED % 19 (03/10/23 8:30 AM) 1Result Comment: cTnT >= 0.030 ng/ml: myocardial necrosis present. This may be due to acute myocardial ischemia (AMI) or other myocardial injury. cTnT < 0.010 ng/ml: 99th percentile upper reference limit for ostensibly healthy adult referencepopulation (male and female). 2Result Comment: cTnT >= 0.030 ng/ml: myocardial necrosis present. This may be due to acute myocardial ischemia (AMI) or other myocardial injury. cTnT < 0.010 ng/ml: 99th percentile upper reference limit for ostensibly healthy adult referencepopulation (male and female). 3Result Comment: cTnT >= 0.030 ng/ml: myocardial necrosis present. This may be due to acute myocardial ischemia (AMI) or other myocardial injury. cTnT < 0.010 ng/ml: 99th percentile upper reference limit for ostensibly healthy adult referencepopulation (male and female). 4Result Comment: POSSIBLE INTERFERING SUBSTANCE. ASCORBIC ACID DETECTED IN URINE. RESULTS MAY BEUNRELIABLE. 5Result Comment: CHECKED 6Result Comment: ADA recommendation for FASTING Serum/Plasma Glucose: Normal: 70-100 mg/dL Prediabetes: 100-125 mg/dL Diabetes: 126 mg/dL or higher 7Result Comment: ADA recommendation for FASTING Serum/Plasma Glucose: Normal: 70-100 mg/dL Prediabetes: 100-125 mg/dL Diabetes: 126 mg/dL or higher 8Result Comment: ADA recommendation for FASTING Serum/Plasma Glucose: Normal: 70-100 mg/dL Prediabetes: 100-125 mg/dL Diabetes: 126 mg/dL or higher 9Result Comment: Suggested therapeutic range for low-intensity Coumadin therapy for venous thromboembolism is INR 2.0-3.0 (ex: atrial fibrillation, history of TIA/stroke). For high risk patients, the suggested therapeutic range is INR 2.5-3.5 (ex: mechanical prosthetic valves). 10Result Comment: Suggested therapeutic range for low-intensity Coumadin therapy for venous thromboembolism is INR 2.0-3.0 (ex: atrial fibrillation, history of TIA/stroke). For high risk patients, the suggested therapeutic range is INR 2.5-3.5 (ex: mechanical prosthetic valves). 11Result Comment: POSSIBLE INTERFERING SUBSTANCE. ASCORBIC ACID DETECTED IN URINE. RESULTS MAY BEUNRELIABLE. 12Result Comment: POSSIBLE INTERFERING SUBSTANCE. ASCORBIC ACID DETECTED IN URINE. RESULTS MAY BEUNRELIABLE. 13Result Comment: POSSIBLE INTERFERING SUBSTANCE. ASCORBIC ACID DETECTED IN URINE. RESULTS MAY BEUNRELIABLE. 14Result Comment: POSSIBLE INTERFERING SUBSTANCE. ASCORBIC ACID DETECTED IN URINE. RESULTS MAY BEUNRELIABLE. 15Result Comment: BLOOD/ANTICOAG RATIO IN TUBE UNSATISFACTORY Results telephoned to: MS JUANITA BOGGS 03/10/23 @ 0850 16Result Comment: BLOOD/ANTICOAG RATIO IN TUBE UNSATISFACTORY Results telephoned to: MS JUANITA BOGGS 03/10/23 @ 0850 17Result Comment: BLOOD/ANTICOAG RATIO IN TUBE UNSATISFACTORY Results telephoned to: MS JUANITA BOGGS 03/10/23 @ 0850 18Result Comment: BLOOD/ANTICOAG RATIO IN TUBE UNSATISFACTORY Results telephoned to: MS JUANITA BOGGS 03/10/23 @ 0850 19Result Comment: BLOOD/ANTICOAG RATIO IN TUBE UNSATISFACTORY Results telephoned to: MS JUANITA BOGGS 03/10/23 @ 0850 Vital Signs Most recent to oldest [Reference Range]: 1 2 3 Patient Weight 77.1 kg (03/12/23 3:47 AM) 79.7 kg (03/08/23 4:16 AM) 79.9 kg (03/07/23 5:03 AM) Temperature [36.5-37.9 DegC] 36.8 DegC (03/12/23 12:01 PM) 36.7 DegC (03/12/23 3:48 AM) 36.7 DegC (03/11/23 7:55 PM) Heart Rate 73 bpm (03/12/23 12:01 PM) 60 bpm (03/12/23 3:48 AM) 75 bpm (03/11/23 7:55 PM) Respiratory Rate 16 br/min (03/12/23 12:01 PM) 18 br/min (03/12/23 8:07 AM) 16 br/min (03/12/23 3:48 AM) Blood Pressure 111/71mmHg (03/12/23 12:01 PM) 129/63mmHg (03/12/23 3:48 AM) 130/64mmHg (03/11/23 7:55 PM) Mean Blood Pressure 78 mmHg (03/12/23 3:48 AM) 79 mmHg (03/11/23 7:55 PM) 77 mmHg (03/11/23 11:58 AM) Cuff Pulse Pressure 40 mmHg (03/12/23 12:01 PM) 66 mmHg (03/12/23 3:48 AM) 66 mmHg (03/11/23 7:55 PM) BP Location # 1 Right Arm (03/12/23 12:01 PM) Right Arm (03/12/23 3:48 AM) Right Arm (03/11/23 7:55 PM) Social History Social History Type Response Smoking Status Never smoked cigaret rick Sex Male Radiology * Contributor_system, MUSE01: VERIFY, PERFORM Event Display: EKG Authored Date: [id number] Please click on link to see image. * Contributor_system, [email or web address]: VERIFY, PERFORM Event Display: EKG Authored Date: [id number] Please click on link to see image. * Contributor_system, MUSE01: VERIFY, PERFORM Event Display: EKG Authored Date: [id number] Please click on link to see image. Surgical operation note * MD Judit, Mariano Vidal: PERFORM, MODIFY, MODIFY, MODIFY, MODIFY, MODIFY Event Display: .Operative Report Authored Date: [id number] OPERATIVE REPORT Name: BRIELLE ASHTON Patient Number: [id number] : 1945 Date of Service: 03/04/23 SURGEON: Dr. Mariano Spain CARDIOPULMONARY TECHNOLOGIST CHIEF(s): Dr. Pedro Casey, Dr. 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 This showed a mass in the ascending colon which was biopsied as adenocarcinoma. He had staging imaging which was negative for metastatic disease. CEA drawn was 3.6 (patient is a smoker). Otherwise comes in for further evaluation and treatment. Patient reports to move his bowels about 1-2X per week. Reports stools are better when softer. Thishas been his regular for quite some time now. Denies any rectal bleeding. Last colonoscopy prior tothe current one was well over 10 years ago. No reported family history of CRC. No IBD. Given these findings, a complex, comprehensive and extensive discussion was initiated with the patient regarding the risks, benefits and alternatives of the procedure. These included but were not limited to mental status changes, delirium, renal failure, deep venous thrombosis, possible stroke, possible heart attack or cardiac arrhythmia, atelectasis, pneumonia, infection, bleeding, ileus, bowel perforation, incisional hernia, injury to nearby structures such as blood vessels or urinary system,and need for open procedure. These were explained to the patient using as little medical jargon as possible. The patient demonstrated satisfactory understanding of their condition as well as these ris ks. The patient elected for operative intervention at this time. FINDINGS: Proximal transverse/Distal ascending colon mass. Isoperistaltic side to side stapled 60mmanastomosis OPERATION: The patient was brought to the operating room and general anesthesia was induced. Prior to arrival, the patient had completed a mechanical and oral antibiotic bowel prep. The patient was then positioned in the supine position ensuring all bony prominences were padded. Atimeout was completed, verifying the correct patient, procedure, site, positioning, any other implants or special equipment prior to incision. An orogastric tube was placed and a Britton catheter was inserted. The abdomen was prepped and draped in the usual sterile fashion. Preoperative intravenous antibiotics were given prior to incision along with DVT prophylaxis. Insufflation of the abdominal cavity was done with a 5 mm camera at [facility] in an Optiviewtechnique. Layers of the abdominal wall were visualized as the trocar was advanced into the abdomen. Insufflation tubing was transferred over to this trocar. A pressure of 15mmHg was established and then the abdomen was then inspected. There were no injuries to the bowel or liver noted .The liver and peritoneum were examined. Next additional 5 mm trocars were placed in the left lower quadrant along with another near the umbilicus. The patient was then positioned in 30 reverse Trendelenburg position with the patients right side up to allow for small bowel to drop clear of the operative field. At this time, the aforementioned mass was not visible or directly palpable along the ascending colon. Further inspection of the left side of the abdomen showed a significantly redundant colon. A moment was taken to take a look again at the biopsy results confirming ascending colon but listed at 60cm. Given this apparent discrepancy, the decision was made to perform a colonoscopy to confirm the location. The patient was then frog legged and the colonoscope was then passed through the anus under direct visualization and was advanced to the cecum, which was identified by the presence of the cecal strap, appendiceal orifice, and the ileocecal valve. The prep was noted to be sufficient. The mass was indeed noted near the hepatic flexure. The scope was then withdrawn the CO2 removed. The patient tolerated the procedure well without complications. Attention resumed back up at the abdomen. Any omentum was then moved cephalad over the transverse colon after further adhesions were divided. Given the distension now of the cecum, it was difficult to proceed in a medial to lateral fashion. Attention was thus turned to the white line of Toldt and this was mobilized and adhesions taken. This was done so with the Ligasure energy device. Dissection then continued laterally to the patients right. Adhesions were freed from the liver bed. The colon was medialized further at the level of the hepatic flexure. The Duodenum and its attachments were swept downward. The C loop of the duodenum as well as a head of the pancreas were visualized and pres erved. At this time the colon was then replaced in its anatomic location. The lateral attachments of the ascending colon were then divided including mobilization of the retroperitoneal attachments of the terminal ileum, completing the dissection as started from the distal side. Care was taken to protect the right ureter. At this time with the lateral dissection completed, some adhesiolysis was performed laparoscopically on the small bowel adjacent to the active disease. This allowed for a grasper to be placed on the ascending colon and an access incision made by enlarging the umbilical trocar site to a total lengthof about 5-6 cm. A wound protector was then placed into the peritoneal cavity to minimize the risk of wound infection. The ascending colon and small bowel were then delivered and extracted. The smallbowel and colon were then inspected. No other pathology was noted. A point on the small bowel was identified as the proximal extent of disease and a mesenteric windowwas created. A blue MANDY stapler divided the bowel here. The mesentery was then sequentially dividedto the colon where a second firing was used of the same stapler. The specimen was passed off the field. Next the small bowel was aligned with the colon in an isoperistaltic fashion about 8-10cm in length. This was secured with stay sutures of 3-0 Vicryl. Next, two enterotomies were made and a 60mm staple was used to create the common channel. After this was finished and hemostatic, the enterotomywas then closed in 2 layers with a running 3-0 PDS and an outer interrupted layer of 3-0 vicryl. This staple line was oversewn and appeared hemostatic. The mesenteric defect was not reapproximated asit was quite large. The anastomosis was reintroduced into the abdomen. There was no evidence of tension at the anastomosis. Hemostasis was secured. There was no omentum to mobilize over the anastomosis. All trocars were removed under direct vision. There was no evidenceof any trocar site bleeding. Closure of the extraction site was done using #0 PDS running sutures. The skin was closed using 4.0 Monocryl subcuticular sutures. The same was done to the port sites. Dressing was applied. The patient tolerated the procedure well and was awakened from general anesthesia and was taken to the post anesthesia care unit in stable condition. All instrument and lap pad counts were reported as correct at the end of the procedure prior to closure. I, Dr. Mariano Spain, was present and scrubbed for the entirety of the operation. 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 Cardiology was consulted for syncope to rule out ACS in the setting of extensive heart diseaseand raising troponin 0.1. Stress test performed on 08/30 showed moderate to large area of myocardial ischemia involving anterior wall lateral wall and inferior wall severely abnormal stress test. Coronary angiogram 08/21 showsnormal LMCA patent proximal LAD stent moderate disease apical LAD subtotal occluded posterior second and diagonal 1, 70% distal LCx OM 2 FINISHER PLATE, 40% ostial RCA 80 to 90% ostial PDA, normal left ventricular end-diastolic pressure and left ventricular ejection fraction planned PCI of LCx and posterior PDA after surgery. Patient has a significant history of coronary stents, 11 stents in total with last one placed in 2020. Recent echo done at an outside facility on 12/30 shows normal ejection fraction 55 to 60%. Left atrium mildly enlarged and dilated.. The right atrium is also mildly dilated. No wall motion abnormalities noted This morning patient was having a bowel movement after 3 days of surgery after which he was unsteady on his feet and nurses had to help him down.The entire episode lasted a few minutes where the patient was diaphoretic, eyes rolling to the back but with no recollection of the episode at all. Otherwise patient has been having a downtrending hemoglobin at baseline of 13.2 down to 9.3 today status post day4 of ascending colectomy. Patient only received cefazolin presurgery. But no other antibiotics postsurgery. Over the last 4 days he has an increasing white count from 9-13.5 today, lactate of 2.6 and troponin of 0.1. His vitals show tachycardia of 107, blood pressure 81/47which increased to 111/69 and starting fluids. Review of Systems full 10-point ROS negative unless otherwise indicated above. Physical Exam Vitals & Measurements T:36.4C HR:92(Monitored) RR:20 BP:113/58 SpO2:100% Oxygen Flow:2(L/Min) Oxygen Therapy:Room air WT:79.7kg Input and Output - Last 24 hours (Last 8 hours) Total In: 2590 (2590) Total Out: 1425 (200) Total Balance: 1165 (2390) MED INTAKE:1510 (1510) Urine Voided:1425 (200) Oral Fluids:1080 (1080) Stool Count 1(1) Urine Count 1(1) General:No acute distress, AAOx4 HEENT:Normocephalic, mucous membranes moist CV:Regular rate and rhythm, no murmurs, no JVD Pulm:Equal breath sounds bilaterally, no apparent respiratory distress Abd:Soft, appropriately tender, nondistended, Ecchymosis around the midline and surgical scar Extremities:Warm, well-perfused, +1 edema, b/l Neuro:Moving all extremities, no focal deficits, alert and appropriate Skin:No rashes EKG EKG shows normal sinus rhythm, 88 bpm in the anterior leads with poor R wave progression showingright superior deviation with no significant changes from previous EKGs appreciated. Assessment/Plan 77 yo M with complex medical history including hypertension, dysphagia s/p radiation and partial L mandibulectomy in 2011 (patient states he has been told he has a smaller throat due to radiation), history of tracheostomy (2011; s/p decannulation), and CAD (OK 10+ years ago; OSH cath reveals multivessel CAD with delaying intervention since december for colon surgery. S/P day 4 of ascending colectomy. Pt had an acute syncopal episode after BM which was black and tarty. Cards was consulted for syncope and increasing troponin. Raising trops likely to to demand ischemia in the setting of acute blood loss due to GI bleed. Pt responded well to 1 L of fluids. As patient did not have acute changes on the EKGor anginal painduring this episode likely not ACS but difficult to completely rule outwith pt's extensive history ofCAD and known occlusionson recent stress tests.With increasing white cell count can also consider post surgical infection but no other symptoms such as hypotension or fever but patient isalso taking Tylenol for pain control. RECOMMENDATIONS: - Serial H/H for a Hbg goal> 8 - Serial EKG and Troponin q6h until delta negative - reach out to fellow credit control assistant if patient becomes hemodynamically unstable with chest pain and rising troponin Cardiology will continue to follow the patient. [facility] Internal Medicine Residency, PGY-9 or TT Attestation I interviewed and examined the patient, and agree with the above assessment and plan. The note was edited to reflect my assessment and plan. Abdulaziz Juarez M.D., Ph.D. Problem List/Past Medical History Ongoing Tobacco user Procedure/Surgical History partial L mandibulectomy with L neck dissection and tracheostomy (2011)Nose operationLeg repair, left leg Medications Inpatient acetaminophen(Tylenol), 1000 mg= 2 tab, PO, q8h amLODIPine, 5 mg= 1 tab, PO, Daily bisacodyl(Dulcolax Laxative 5 mg oral delayed release tablet), 5 mg= 1 tab, PO, Daily calcium carbonate(Tums 500 mg oral tablet, chewable), 500 mg= 1 tab, PO, tid, PRN Lactated Ringers Injection 1,000 mL(LR 1,000 mL), 1000 mL, IV Fluid magnesium oxide, 400 mg= 1 tab, PO, bid rosuvastatin, 10 mg= 1 tab, PO, Daily tamSULOsin(Flomax), 0.4 mg= 1 cap, PO, Daily Home acetaminophen(Tylenol 500 mg oral tablet), 1000 mg= 2 tab, PO, q8h, PRN amLODIPine(amLODIPine 5 mg oral tablet), 5 mg= 1 tab, PO, Daily apixaban(Eliquis 2.5 mg oral tablet), 2.5 mg= 1 tab, PO, bid aspirin(aspirin 81 mg oral delayed release tablet), 81 mg= 1 tab, PO, Daily calcium carbonate(Tums 500 mg oral tablet, chewable), 500 mg= 1 tab, PO, tid, PRN nitroglycerin(nitroglycerin 0.4 mg sublingual tablet), 0.4 mg= 1 tab, SL, q5min, PRN oxyCODONE(oxyCODONE 5 mg oral tablet), 5 mg= 1 tab, PO, q4h, PRN rosuvastatin(rosuvastatin 10 mg oral tablet), 10 mg= 1 tab, PO, Daily Allergies No Known Medication Allergies Social History Smoking Status Never smoked cigarettes Electronic Signature on File Electronically Reviewed/Signed by: Lizy Hernandez DO Author Signature Dt/Tm:03/09/2023 05:21 PM Resident Division of Internal Medicine Electronically Reviewed/Signed by: Abdulaziz Juarez MD, PhD Cosigner Signature Dt/Tm: 03/09/2023 09:36 PM [facility] [place] [facility] - [address], [address], [place] [address] .D/C Summary * ROOPA Mcdonnell Christine M: PERFORM Event Display: .D/C Summary Authored Date: [id number] [facility] For medical concerns, call: . Address: [address] [place] [address] (HOME) :1945 . 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 This showed a mass in the ascending colon which was biopsied as adenocarcinoma. He had staging imaging which was negative for metastatic disease. CEA drawn was 3.6 (patient is a smoker). Otherwise comes in for further evaluation and treatment. Patient reports to move his bowels about 1-2X per week. Reports stools are better when softer. This has beenhis regular for quite some time now. Denies any rectal bleeding. Last colonoscopy prior to the current one was well over 10 years ago. No reported family history of CRC. No IBD. Hospital Course: Patient was admitted on 03/04/23 forcolonoscopy, diagnostic laparoscopy,laparoscopic assisted ascending colectomy, performed by Dr. Spain.There wereno complications and the patient was transferred to the PACUin stable condition withfoley catheter. On 03/05, patient is progressing wellwith no acute events and no flatus but pain is controlled. A diet of clears was started immediatelypost op and advanced to low residue diet on 03/06. He had return of bowel function with flatus on03/07.On 03/08, no acute events overnight but was given Magnesium Oxide PO BID and Dulcolax PO dailyto induce another bowel movement. 03/09 while sitting on the toilet the patient had a bloody bowel movement and a syncope event. Rapid response was called. BP taken was 84/47 with a MAP of 55. Gluc 114.RR called and additional team members appeared at bedside. Labs drawn and sent down. EKG taken per team order. New IV with LR running at 84 mLs/hr. BP currently 111/69. Patient resting comfortably in bed at this time.Cardiology was consulted forraising trops likely to to demand ischemia in the setting of acute blood loss due to GI bleed. Pt responded well to 1 L of fluids. As patient did not have acute changes on the EKGor anginal painduring this episode likely not ACS but difficult to completely rule outwith pt's extensive history ofCAD and known occlusionson recent stress tests.With increasing white cell count can also consider post surgical infection but no other symptoms such as hypotension or fever but patient is also taking Tylenol for pain control. Vitamin Kinitiated. He was transfused 1 U PRBCs.03/10 Hgb improved to 10 from 8. On 03/11, his Hgb stable at9.2 with stable vital signs. He had nonbloody bowel movements on 03/10. Patient was deemed stable for discharge on 03/12 and discharged to home with instructions for follow up care and appointments. PDMP was reviewed. 09/18/2022 09/18/2022 1 Oxycodone-Acetaminophen 5-325 10.00 2 [place] [id number] The (8255) 0 37.50 MME Medicare [place] Exam on Discharge: Vitals & Measurements: T:36.7C TMIN:36.2C TMAX:36.7C HR:60(Monitored) RR:18 BP:129/63 SpO2:100% Oxygen Therapy:Room air WT:77.1kg GENERAL: NAD, pleasant, cooperative CV: S1S2 RRR.+2 mid-systolic murmur.No edema. PULM: CTA bilaterally. No cough. GI: Abdomen soft, nontender, nondistended. No guarding, masses, tympany. Abdominal surgical sites C/D/I. No drainage or erythema. Scattered areas of eccymosis. MS: Ambulates independently. REAGAN. NEURO: alert and oriented x3, no focal deficits. PSYCH: Normal affect and speech. SKIN: Intact. No erythema or rashes. Discharge Medications: 1.Rosuvastatin (rosuvastatin 10 mg oral tablet) 10 mg (1 tab) by mouth once daily. 2.Nitroglycerin (nitroglycerin 0.4 mg sublingual tablet) 0.4 mg (1 tab) sublingually every 5 minutes, as needed for chest pain. 3.AmLODIPine (amLODIPine 5 mg oral tablet) 5 mg (1 tab) by mouth once daily. 4.Aspirin (aspirin 81 mg oral delayed release tablet) 81 mg (1 tab) by mouth once daily. 5.Calcium carbonate (Tums 500 mg oral tablet, chewable) 500 mg (1 tab) by mouth 3 times daily, as needed for indigestion. 6.OxyCODONE (oxyCODONE 5 mg oral tablet) 5 mg (1 tab) by mouth every 4 hours, as needed for pain. 7.Acetaminophen (Tylenol 500 mg oral tablet) 1,000 mg (2 tab) by mouth every 8 hours, as needed forfever. Allergies and Sensitivities: No Known Medication Allergies Tests Pending: None Other Appointments: Provider or Location Time Frame Details about visit Colorectal 2 weeks in [place] If you have not been contacted with this appointment information within two business days, please call Surgery Specialties Scheduling [phone]. Care Instructions: Medications:Please follow discharge medication list Managing pain:Pain medication may have been ordered for you to be comfortable during your recovery. Taper off of the prescription pain medication as pain decreases. If you have any questions regarding your pain management, please contact the colorectal office at [phone]. You may take prescribed pain medication You may take over the counter Tylenol (acetaminophen) Care of your incision:After washing your hands, cleanse surgical sites with mild soap and water. You may lightly cleanse your incision while bathing in shower. No tub baths or submerging incision. Do not apply any creams, lotions, ointments to surgical sites. It is normal to experience some numbness around the incision for some time after surgery. This may subside as the incision heals. If you have glue over surgical sites, it may take 2-3 weeks for this to peel off. You may have irregularity to your usual bowel movement habits. It may take several months to returnto a normal pattern. You will have a follow up colorectal clinic appointment. If you are not notified of this appointment in the next 3 days, please call the colorectal office at [phone]. DIET INSTRUCTIONS: You may not feel like eating regular portions right away. It is normal to have less of an appetite following surgery or hospitalization. In the beginning, try eating smaller meals several times per day. If you do not have much of an appetite, you can add protein and calories by drinking supplements such as Ensure, Boost, [place] Instant Breakfast, Special K, milkshakes, protein shakes Please follow a low residue diet (no fresh fruits, no fresh vegetables). Please drink lots of fluids (64 ounces per day) of clear liquids-water, sport drinks (Gatorade), Liquid IV oral supplement, lemonade, flavored water. This will help you keep hydrated and prevent constipation. Please limit caffeine. Do not drink alcohol or smoke tobacco products. ACTIVITY INSTRUCTIONS: You may resume your regular home activities as tolerated. If you had surgery: Do not expect your energy level to be the same as it was before surgery. Your body needs more energy to heal, and this may cause you to feel weak or need to take naps Please walk often, be out of bed and active daily. This will help prevent blood clots and pneumonia. You may climb stairs. No lifting greater than 10lbs for 6-8 weeks or until cleared in clinic. No driving until cleared in clinic or discussed with surgeon. . Advance Directive:None I personally spent _ minutes in discharge planning. Electronic Signature on File CC: [place] [facility] & [address] [address] * Electronically Reviewed/Signed by: ROOPA Oreilly Author Signature Dt/Tm:03/12/2023 10:51AM Division of Colorectal Surgery Electronically Reviewed/Signed by: Mariano Spain MD Cosigner Signature Dt/Tm: 03/12/2023 02:57PM Division of Colorectal Surgery PSYCH THERAPIST Discharge instructions * ROOPA Mcdonnell, Fidelia Ruano: PERFORM Event Display: Patient Discharge Instructions Authored Date: [id number] DAISHABRIELLE Larisa :1945 Visit Date:03/04/2023 Patient Discharge Instructions [facility] For medical concerns, call: . Date of Admission:03/04/2023 Date of Discharge:03/12/2023 Physician:MD Spain Michael J Service:Colorectal Surgery Discharge Disposition: . Advance Directive:None Reason for Hospitalization Colon cancer Your Diagnoses Colon cancer S/P partial colectomy Acute GI hemorrhage Anemia, blood loss Coronary artery disease Hypotensive syncope Hypovolemia My [employer] Patient Portal: [facility] [employer] makes it easy for you to manage your health information online. My [employer] is a free service that provides you instant, secure access to your medical information anytime, anywhere. Sign in or set up your account today at [email or web address] northeastMicro[facility] [email or web address] Thank you for allowing us to assist you with your healthcare needs. If you need additional community resources, [place] [employer] can help at [email or web address]. 211 can assist you in connecting with social programs based on your unique needs and locations. 211 is an anonymous search that can help you locate resources for: Food, Housing, Transportation, Goods, Education and Healthcare. Medications Patient is enrolled in Rx-to-Go Program New medications will be delivered from [facility] to patient's room at discharge: Mon-Sun from 9AM-5 PM. Medications MUST be PICKED UP at [facility] if patient is discharged Mon-Sun after 5 PM or anytime on holidays. Please note, the [facility] closes at 8 PM on weekdays and 5:30 PM on Saturdays, Sundays, and holidays. What How Much When Instructions Next Dose New acetaminophen (Tylenol 500 mg oral tablet) 2 tab(s) by mouth Every 8 hours as needed for as needed for fever Pickup at [facility] [place] New oxyCODONE (oxyCODONE 5 mg oral tablet) 5 Milligram by mouth Every 4 hours as needed for as needed for pain Pickup at [facility] [place] Unchanged amLODIPine (amLODIPine 5 mg oral tablet) 1 tab(s) by mouth Once daily Unchanged aspirin (aspirin 81 mg oral delayed release tablet) 1 tab(s) by mouth Once daily Unchanged calcium carbonate (Tums 500 mg oral tablet, chewable) 1 tab(s) by mouth 3 times daily as needed for as needed for indigestion Unchanged nitroglycerin (nitroglycerin 0.4 mg sublingual tablet) 1 tab(s) sublingually Every 5 minutes as needed for as needed for chest pain Unchanged rosuvastatin (rosuvastatin 10 mg oral tablet) 1 tab(s) by mouth Once daily Pharmacy Information [facility] [place]: [address] [place] [address] [place] [phone] Allergies No Known Medication Allergies What to do next Instructions From Your Doctor CARE INSTRUCTIONS: Medications:Please follow discharge medication list Managing pain:Pain medication may have been ordered for you to be comfortable during your recovery. Taper off of the prescription pain medication as pain decreases. If you have any questions regarding your pain management, please contact the colorectal office at [phone]. You may take prescribed pain medication You may take over the counter Tylenol (acetaminophen) Care of your incision:After washing your hands, cleanse surgical sites with mild soap and water. You may lightly cleanse your incision while bathing in shower. No tub baths or submerging incision. Do not apply any creams, lotions, ointments to surgical sites. It is normal to experience some numbness around the incision for some time after surgery. This may subside as the incision heals. If you have glue over surgical sites, it may take 2-3 weeks for this to peel off. You may have irregularity to your usual bowel movement habits. It may take several months to returnto a normal pattern. You will have a follow up colorectal clinic appointment. If you are not notified of this appointment in the next 3 days, please call the colorectal office at [phone]. If you notice the following symptoms Fevers greater than 100.4 F, increasing pain, cramping, nausea, vomiting, diarrhea, constipation orother concerns Surgical sites: watch for any separation, increased drainage, redness, swelling, drainage of pus, heat at incision site For questions during the day (8am to 4pm), call the colorectal office at [phone] For urgent questions after office hours, please call [phone] and ask for the colorectal surgery resident credit control assistant For emergencies, please call [phone] or go to the closest emergency department If unable to contact your physician and you feel it is an emergency, go to the nearest Emergency Room or call 911 Diet Instructions You may not feel like eating regular portions right away. It is normal to have less of an appetite following surgery or hospitalization. In the beginning, try eating smaller meals several times per day. If you do not have much of an appetite, you can add protein and calories by drinking supplements such as Ensure, Boost, [place] Instant Breakfast, Special K, milkshakes, protein shakes Please follow a low residue diet (no fresh fruits, no fresh vegetables) or regular diet if indicated. Please drink lots of fluids (64 ounces per day) of clear liquids-water, sport drinks (Gatorade), Liquid IV oral supplement, lemonade, flavored water. This will help you keep hydrated and prevent constipation. Please limit caffeine. Do not drink alcohol or smoke tobacco products. Activity Instructions You may resume your regular home activities as tolerated. If you had surgery: Do not expect your energy level to be the same as it was before surgery. Your body needs more energy to heal, and this may cause you to feel weak or need to take naps Please walk often, be out of bed and active daily. This will help prevent blood clots and pneumonia. You may climb stairs. No lifting greater than 10lbs for 6-8 weeks or until cleared in clinic. No driving until cleared in clinic or discussed with surgeon. Follow-Up Appointments Someone Will Contact You Regarding These Appointments Provider or Location Time Frame Details about visit Colorectal 2 weeks in [facility] If you have not been contacted with this appointment information within two business days, please call Surgery Specialties Scheduling [phone]. Tests Pending None Procedures Performed lap assisted ascending colectomy 03/04/2023 Special Instructions Common Emergency Awareness Tips Call 911 immediately if: experiencing any of the warning signs and symptoms of stroke: B.E. F.A.S.T. Balance: is there trouble with walking or coordination Eyes: is there double vision or visual loss Face: Smile, do both sides of face move equally Arm: Raise arms, do both arms move equally Speech: Is speech slurred or inappropriate Time: Time is critical, call 911 immediately Heart Attack Signs Chest discomfort: Most heart attacks involve discomfort in the center of the chest and lasts more than a few minutes, or goes away and comes back. It can feel like uncomfortable pressure, squeezing, fullness or pain. Discomfort in upper body: Symptoms can include pain or discomfort in one or both arms, back, neck, jaw or stomach. Shortness of breath: With or without discomfort. Other signs: Breaking out in a cold sweat, nausea, or lightheaded. Remember, MINUTES DO MATTER. If you experience any of these heart attack warning signs, call 9-1-1 to get immediate medical attention! Note * MD Spain Michael J: MODIFY MD Spain Michael J: MODIFY, MODIFY, MODIFY, PERFORM Event Display: Brief Operative Note Authored Date: [id number] BRIEF OPERATIVE NOTE Name: BRIELLE ASHTON Patient Number: [id number] : 1945 Date of Service: 03/04/2023 Pre-op Diagnosis: History of colon cancer Post-op Diagnosis: Same Procedure: Colonoscopy, Diagnostic laparoscopy, laparoscopic assisted ascending colectomy Surgeon: Dr. Mariano Spain Assistants: Dr. Pedro Casey, Dr. Jaquan Mayberry, Migel Dhaliwal MS3 Anesthesia: General Estimated Blood Loss: 30mL X Less than 50ml Drains: None Fluids: 1.8L Urinary Output: 690mL Condition: Stable Complications: None Specimen: Ascending Colon _ None Findings: Ascending Colon 160cm from anal verge identified on intra-op colonoscopy Check one X Pharmacologic VTE prophylaxis not indicated Standard VTE prophylactic regimen ordered _ Pharmacologic VTE prophylaxis contraindicated due to increased risk of intraoperative and / or postoperative bleeding Check one No antibiotics indicated X Standard prophylactic antibiotic regimen ordered _ Antibiotic regimen changed due to concern for infection COLORECTAL SURGERY ATTENDING ATTESTATION The medical file was reviewed. I agree with the history, review of systems, and physical exam for this patient. I have reviewed the existing laboratory results and radiographic images. I also agree with the assessment and plan from the advanced practice provider/residents note. Thank you for entrusting the care of your patients to the Colon & Rectal Surgery Division at [facility]. Electronic Signature on File Electronically Reviewed/Signed by: Migel Dhaliwal Author Signature Dt/Tm:03/04/2023 03:35 PM Medical Student Electronically Reviewed/Signed by: Mariano Spain MD Cosignphilomena Signature Dt/Tm: 03/04/2023 06:49PM Division of Colorectal Surgery [facility] * DO Barajas Evelyn M: VERIFY DO Barajas Evelyn M: VERIFY, PERFORM Event Display: CP BA Dx Authored Date: [id number] Antibody/antibodies identified: Anti-E Patients red blood cell antigen phenotype: A Rh(D) positive E antigen negative History of antibodies: None Clinical significance: Anti-E is capable of causing hemolytic transfusion reactions. Difficulty in finding compatible blood: If red cell transfusion is necessary, A or O Rh(D) positive or negative, E antigen negative units should be provided. This comprises approximately 61% of the donor pool. A full-crossmatch will be necessary before compatible blood can be transfused. Extra time may be necessary to find compatible units. Enma Barajas DO (Electronically signed by) Verified: 03/05/2023 14:21 EDT Performing Location: [facility] Patient Care team information Care Team Personnel Name: Jazmine Chaudhary Ann Position: Pharmacist Member Role: Pharmacy - Lifetime Name: APOLLO Arora, Gumaro Soto Position: Referring Member Role: Primary Care Provider Address: Address: [facility] [address]
--- OUTSIDE RECORDS SUMMARY | 2023-04-10 00:09 | External Medical Summary | Continuity of Care Document ---
Author Name Unknown Organization [facility] Address [address], [place] [id number] Care Team Providers Care Publisher Assistant Name Role Phone Vahid Arora Primary Care Physician [phone] [facility]counter [facility] [id number] Date(s): 02/16/23 - 02/16/[address] [phone] Discharge Disposition: Home or Self Care Attending Physician: MD Spain Michael J Referring Physician: MD Spain Michael J Social History Social History Type Response Sex Male Laboratory * MD Valerio Guoli: CHINTAN Valerio MD, Guoli: CHINTAN Cruz MD, Francesca M: PERFORM Event Display: SC Disclaimer Authored Date: The following statement applies to flow cytometry, immunohistochemical, histochemical, molecular genetics, immunofluorescence, and in situ hybridization assays. These tests were developed and their performance characteristics determined by a [facility] Department of Pathology Laboratory. All controls show appropriate reactivity. Not all tests have been cleared or approved by the U.S. Food and Drug Administration. The FDA has determined that such clearance or approval is not necessary. For decalcified specimen types, focused validation may have been done that may or may not apply to all decalcified specimen types. Results should be interpreted with caution. * MD Valerio Guoli: CHINTAN Valerio MD, Guoli: CHINTAN Cruz MD, Francesca M: PERFORM Event Display: SC Slide/Block Desc Authored Date: 1.A) Colon, proximal ascending, biopsy of mass; B) Colon, 60cm, polypectomy; ([id number]; 01/26/2023) Received are 2 blocks and pathology report. blocks will be returned. [address] [phone] Fax * MD Valerio Guoli: TRANSCRIBE, PERFORM, VERIFY Event Display: DC Dx Authored Date: 1. A) Colon, proximal ascending, biopsy of mass; B) Colon, 60cm, polypectomy; ([id number]; 01/26/2023): A. Colon, proximal ascending, biopsy of mass: Superficial fragments of villous adenoma with at least high-grade dysplasia. B. Colon, 60cm, polypectomy: Tubular adenoma. Adelfo Valerio MD (Electronically signed by) Verified: 02/17/2023 13:31 EDT Performing Location: [facility] * MD Valerio Guoli: TRANSCRIBE, PERFORM, VERIFY Event Display: DC Micro Authored Date: A. The sample is superficial; the findings may not be career representative for the entire lesion. * MD Valerio Guoli: VERIFY MD Valerio Guoli: VERIFY MD Nancy, Susy Ruano: PERFORM Event Display: DC Clinical History Authored Date: Screening for colorectal malignancy Patient Care team information Care Team Personnel Name: APOLLO Arora, Vahid Harrison Position: Referring Member Role: Primary Care Provider Address: Address: [address] [place] [address] [place] [address]
--- OUTSIDE RECORDS SUMMARY | 2023-04-10 00:09 | External Medical Summary | Continuity of Care Document ---
Author Name Unknown Organization [facility] [address] [place] [id number] Care Team Providers Care Eye Physician Name Role Phone Vahid Arora Primary Care Physician [phone] [id number] Date(s): 03/01/23 - 03/01/23 [facility] [address] [facility] [address], [address], [address] [place] [address] Encounter Diagnosis Body mass index [BMI] 26.0-26.9, adult(Discharge Diagnosis) - 03/01/23 Pre-op exam(Discharge Diagnosis) - 03/01/23 Discharge Disposition: Home or Self Care Attending Physician: MD Reese, Yumiko Veliz Referring Physician: MD Judit, Mariano Vidal Allergies, Adverse Reactions, Alerts No Known Medication Allergies Medications amLODIPine 5 mg oral tablet Start: [...] chest pain Start Date: 02/19/23 Status: Ordered rosuvastatin 10 mg oral tablet Start: 02/19/23 10:47:00 EDT, 1 tab, PO, Daily Start Date: 02/19/23 Status: Ordered Tums 500 mg oral tablet, chewable Start: 03/01/23 15:25:00 EDT, 1 tab, PO, tid, PRN: as needed for indigestion Start Date: 03/01/23 Status: Ordered Mental Status 03/01/23 Barriers to Learning one year None evide nt Mandatory Health Literacy Documentation Yes Health Literacy Communication Barriers N ever Primary Language Finnish Problem List Condition Confirmation Course Effective Dates Status Health St atus Informant Tobacco user Confirmed Active Diagnosis Diagnosis Type Effective Dates Health Status Cl inical Service Informant Body mass index [BMI] 26.0-26.9, adult Discharge Diagnosis 03/01/23 Non-Specified Pre-op exam Discharge Diagnosis 03/01/23 Procedures Procedure Date Related Diagnosis Body Site Status partial L mandibulectomy wit h L neck dissection and tracheostomy 2011 Comp leted Leg repair, left leg Comp leted Nose operation Completed Vital Signs Most recent to oldest [Reference Range]: 1 Height 177 cm (03/01/23 2:55 PM) Patient Weight 83 kg (03/01/23 2:55 PM) Body Mass Index 26.49 kg/m2 (03/01/23 2:55 PM) Temperature [36.5-37.9 DegC] 36.9 DegC (03/01/23 2:55 PM) Heart Rate 63 bpm (03/01/23 2:55 PM) Respiratory Rate 18 br/min (03/01/23 2:55 PM) Blood Pressure 107/50mmHg (03/01/23 2:55 PM) Mean Blood Pressure 63 mmHg (03/01/23 2:55 PM) Cuff Pulse Pressure 57 mmHg (03/01/23 2:55 PM) Social History Social History Type Response Smoking Status Never smoked cigaret rick Sex Male Anes H&P * MD Reese, Yumiko N: MODIFY MD Leigh Selina N: MODIFY, SIGN MD Leigh Selina N: SIGN, VERIFY MD Leigh Selina N: VERIFY, MODIFY, MODIFY, SIGN, MODIFY, SIGN, SIGN APOLLO Ferguson Daniel: SIGN, MODIFY APOLLO Ferguson Daniel: MODIFY Elias, DO, Moi: MODIFY, SIGN Elias, DO, Moi: SIGN, MODIFY Elias, DO, Moi: MODIFY, SIGN Elias, DO, Moi: SIGN Event Display: Anes H&P Authored Date: [id number] Patient: BRIELLE ASHTON Age: 77 years Sex: Male : 1945 Associated Diagnoses: None Author: APOLLO Ferguson Daniel Preoperative Information Anesthesia Preop Info: Procedure: diagnostic laparoscopy, laparoscopic possible open ascending colectomy, possible stoma Date: 03/04/23 09:50 Surgeons: MD Spain Michael J Diagnosis: colon cancer . History of Present Illness See above. 77 yo M with complex medical history including hypertension, dysphagia s/p radiation and partial L mandibulectomy in 2011 (patient states he has been told he has a smaller throat due to radiation), history of tracheostomy (2011; s/p decannulation), and CAD (CA 10+ years ago; OSH cath reveals multivessel CAD but postponing intervention due to colon cancer and need for this surgery). Patient aware he is at an increased risk of a cardiac event intraoperatively. Will continue taking aspirin tonight. COVID vaccinated Anesthesia History PONV: Denies. History of Motion Sickness: Denies. Patient Complications: Negative. Family History of Anesthesia Problems: Negative. Functional Capacity 1-3 METS = Poor: Walks slowly, With cane. Symptoms: Denies SOB/CP. Medical History Cardiovascular: F/b Cardiology from different facility ([facility] Cardiology last visit 12/24/22: He is intermediate risk for perioperative mace for any surgical procedure.), See studies or note below. Hypertension: Calcium channel darius, Well controlled. CAD: h/o CA 10+ yrs ago; 08/2022 outside cardiac cath demonstrated multivessel CAD but decision was made to postpone PCI d/t pt needing partial resection of mandible for oral cancer, Cardiac Intervention ( S/P Stent (type unknown) (~ 2-3 yrs ago), On antiplatelet therapy (pt reports that he ran out of his ASA about 3-4 days ago - I instructed him to last picker ASA 81mg today on his way home and to restart his ASA today) ). Pulmonary: Other: h/o tracheostomy with subsequent takedown. Gastrointestinal: dysphagia since radiation to throat/jaw - diet is restricted to soft foods and liquids; Pt is followed by [facility] ENT (Dr. Baldwin), records requested - pt denies ever being told that he has a difficult airway but does state that he has been told that his "throat is smaller.". 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 Health Status Allergies: Allergic Reactions (Selected) No Known Medication Allergies. Histories Procedure History: partial L mandibulectomy with L neck dissection and tracheostomy ([id number]) in 2012 at 66 Years. Leg repair, left leg ([id number]). Nose operation ([id number]). . Social History: Cigarrette Smoker? Never smoked cigarettes Other Tobacco Use: Current Pipe smoker Alcohol Frequency: Occasionally, Socially Alcohol Type: Beer, Liquor, Wine Recreational Drugs: Denies . Physical Examination VS/Measurements: 03/01/2023 14:55 Temp: 36.9 Pulse: 63 BP: 107/50 MAP: 63 RR: 18 SPO2: 100 FIO2: Wt(kg): 83.0 BMI: 26 Height(cm): 177 . 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 Airway: Mallampati classification: I (soft palate, fauces, uvula, pillars visible), Loaiza. Hyomental Distance: 30-40mm. Mouth: Asymmetric. Teeth: Edentulous. Head: Normocephalic. Neck: Good flexion, No extension beyond "neutral" position, S/P neck dissection, Left. Trachea: Midline, Tracheostomy scar. Respiratory: CTA bilaterally. Cardiovascular: Heart: RRR, 1/6, Murmur. Edema: None. Musculoskeletal: Normal strength. Neurologic: No focal deficits. Assessment and Plan Medications: Pre-Surgery Medication Instructions It is very important we have an accurate list of your medications prior to your procedure. Please review this medication list with your home medications and call [phone] prior to your procedure with any changes to your prescription medications. Please bring this list with you the morning of surgery and note the date and time of the last dose taken of each medication before surgery. amLODIPine (amLODIPine 5 mg oral tablet) 1 tab by mouth once daily . continue as usual aspirin (aspirin 81 mg oral delayed release tablet) 1 tab by mouth once daily . continue as usual calcium carbonate (Tums 500 mg oral tablet, chewable) 1 tab by mouth 3 times daily, as needed for indigestion . do not take morning of procedure metroNIDAZOLE (metroNIDAZOLE 500 mg oral tablet) See Instructions .Take 1 tab PO at 5, 6 and 11PM the evening before surgery follow surgeon's instructions nitroglycerin (nitroglycerin 0.4 mg sublingual tablet) 1 tab sublingually every 5 minutes, as needed for chest pain . may use if needed rosuvastatin (rosuvastatin 10 mg oral tablet) 1 tab by mouth once daily . continue as usual . Does patient use aspirin?: Yes. Does patient use beta blockers?: No. Does patient use AMARI- I/ARB drugs?: No. Does patient use narcotic analgesics for chronic pain? (>1 month AND >30mg morphine or equivalent daily): No. Anesthesiologist Assessment and Plan Problems: No previous anesthetic complications. Cardiac risk factors: High risk surgery, CAD. ASA Classification: Class IV. Anesthetic Plan: Anesthetic technique discussed: General anesthesia, Regional anesthesia, Neuraxial. Induction discussed: Intravenously. Airway plan discussed: Mask, Laryngeal mask airway, Oral endotracheal tube, Tracheostomy. Special monitoring discussed: Arterial line. Risks discussed: Nausea-vomiting, Headache, Sore throat, Dental injury, Eye injury, Allergic reaction, Serious complications, Nerve damage. Informed consent: Consent to be obtained day of surgery. Special techniques and precautions discussed: Transfusion of blood or blood products, PostoperativeICU, Mechanical ventilation. Notes: ATTENDING NOTE: I agree with the residents assesement and plan - this is a very difficult situation as the pt has known CAD that requires repair however, if he were to undergo PCI, it would preclude him from surgeryfor 3-6 months. The pt understands his risk is much higher of cardiac morbidity and mortality. We have a / clinical laboratory technologist and thus if there was an event, he would get PCI emergently as long as he could be anticoagulated. Pt is not on a beta darius however his HR is in the 60s and it would not be advisable to start onethis soon to surgery. He will start ASA 81 mg tonight as part of goal directed medical therapy for CAD. Yumiko Leigh MD . Review / Management Ordered Today: None. Diagnostics: 01/20/23 outside ECHO: , 12/24/22 [facility] Cardiology note: , 12/11/22 outside ECG: , 08/21/22 outside cardiac cath: . Orders placed for day of surgery: None. Records requested from outside facility: outside ENT records. Pending issues: None. Patient Education Patient Education: A. [facility] ([facility]). Electronic Signature on File Electronically Reviewed/Signed by: Bernabe Ferguson PA-C Author Signature Dt/Tm:03/01/2023 03:46 PM Department of Anesthesia Electronically Reviewed/Signed by: Bernabe Ferguson PA-C Cosigner Signature Dt/Tm: 03/01/2023 03:52 PM Department of Anesthesia Electronically Reviewed/Signed by: Moi Griffin DO Cosigner Signature Dt/Tm: 03/01/2023 04:05 PM Resident Department of Anesthesia Electronically Reviewed/Signed by: DO Maria Del Rosario Fernandezigner Signature Dt/Tm: 03/01/2023 04:15 PM Resident Department of Anesthesia Electronically Reviewed/Signed by: Yumiko Leigh MD Cosigner Signature Dt/Tm: 03/01/2023 05:17 PM Department of Anesthesia DT * APOLLO Ferguson Daniel: PERFORM Event Display: Anes H&P Authored Date: [id number] 12/25/22 outside ENT note: No nasolaryngoscopy returned from ENT office. Electronic Signature on File Electronically Reviewed/Signed by: Bernabe Ferguson PA-C Author Signature Dt/Tm:03/02/2023 09:23 AM Department of Anesthesia Electronically Reviewed/Signed by: Yumiko Leigh MD Department of Anesthesia DT Patient Care team information Care Team Personnel Name: APOLLO Arora Tyler D Position: Referring Member Role: Primary Care Provider Address: Address: [address] [place] [address]
--- OUTSIDE RECORDS SUMMARY | 2023-04-10 00:09 | External Medical Summary | Continuity of Care Document ---
Author Name Unknown Organization [facility] Address [address] [place] [id number] Care Team Providers Care Geological Technician Name Role Phone Vahid Arora Primary Care Physician [phone] [id number] Date[facility]): 02/11/23 - 02/11/[address] [phone] Discharge Disposition: Home or Self Care Attending Physician: MD Spain Michael J Referring Physician: MD Spain Michael J Social History Social History Type Response Sex Male Patient Care team information Care Team Personnel Name: APOLLO Arora, Vahid Harrison Position: Referring Member Role: Primary Care Provider Address: Address: [address] [place] [address] [place] [address]
--- OUTSIDE RECORDS SUMMARY | 2023-04-10 00:09 | External Medical Summary | Continuity of Care Document ---
Author Name Unknown Organization [address] [facility] [address] [place], [place] [id number] Care Team Providers Care Ore Mixer Name Role Phone Vahid Arora Primary Care Physician [phone] Encounter [facility] [id number] Date(s): 02/19/23 - 02/19/[address] [phone] Encounter Diagnosis Body mass index [BMI] 26.0-26.9, adult(Discharge Diagnosis) - 02/19/23 Mass of colon(Discharge Diagnosis) - 02/19/23 Other specified diseases of intestine(Final) - Discharge Disposition: Home or Self Care Attending Physician: MD Spain Michael J Referring Physician: APOLLO Arora Tyler D Allergies, Adverse Reactions, Alerts No Known Medication Allergies Medications amLODIPine 5 mg oral tablet Start: 02/19/23 10:47:00 EDT, 1 tab, PO, Daily Start Date: 02/19/23 Status: Ordered lisinopril 20 mg oral tablet Start: 02/19/23 10:47:00 EDT, 1 tab, PO, Daily Start Date: 02/19/23 Status: Ordered metroNIDAZOLE 500 mg oral tablet Start: 02/19/23 15:20:00 EDT, See Instructions, Disp# 3 tab, Refills: 0, Take 1 tab PO at 5, 6 and 11PM the evening before surgery, Stop: 03/03/23 23:00:00 EDT, Pharmacy: [id number] Start Date: 02/19/23 Stop Date: 03/03/23 Status: Ordered nitroglycerin 0.4 mg sublingual tablet Start: 02/19/23 10:48:00 EDT, 1 tab, SL, q5min, Disp# 25 tab, PRN: as needed for chest pain Start Date: 02/19/23 Status: Ordered rosuvastatin 10 mg oral tablet Start: 02/19/23 10:47:00 EDT, 1 tab, PO, Daily Start Date: 02/19/23 Status: Ordered Mental Status 02/19/23 Barriers to Learning one year None evide nt Mandatory Health Literacy Documentation Yes Health Literacy Communication Barriers N ever Primary Language Sinhala Problem List Condition Confirmation Course Effective Dates Status Health St atus Informant Tobacco user Confirmed Active Diagnosis Diagnosis Type Effective Dates Health Status Cl inical Service Informant Body mass index [BMI] 26.0-26.9, adult Discharge Diagnosis 02/19/23 Non-Specified Mass of colon Discharge Diagnosis 02/19/23 Non-Specified Results Laboratory List Name Date Carcinoembryonic Antigen (CEA) 02/19/23 Most recent to oldest [Reference Range]: 1 CEA [<4.8 ng/mL] 3.6 ng/mL 1 (02/19/23 3:58 PM) 1Result Comment: NON-SMOKERS (PAST/NEVER SMOKERS) 20-69 (YEARS) 3.8 NG/ML (95TH PERCENTILE) 40-69 (YEARS) 5.0 NG/ML (95TH PERCENTILE) SMOKERS (CURRENT) 20-69 (YEARS) 5.5 NG/ML (95TH PERCENTILE) 40-69 (YEARS) 6.5 NG/ML (95TH PERCENTILE) "Methodology: Raymundo [employer] CEA assay performed on the moisés e 601/602 analyzerutilizing electrochemiluminescence immunoassay technology (ECLIA). Results obtained with different assay methods or kitscannot be used interchangeably." Vital Signs Most recent to oldest [Reference Range]: 1 Height 177.8 cm (02/19/23 12:23 PM) Patient Weight 83.4 kg (02/19/23 12:23 PM) Body Mass Index 26.38 kg/m2 (02/19/23 12:23 PM) Heart Rate 68 bpm (02/19/23 12:23 PM) Respiratory Rate 16 br/min (02/19/23 12:23 PM) Blood Pressure 94/46mmHg (02/19/23 12:23 PM) Cuff Pulse Pressure 48 mmHg (02/19/23 12:23 PM) BP Location # 1 Left Arm (02/19/23 12:23 PM) Social History Social History Type Response Smoking Status Never smoked cigaret rick Sex Male Patient Care team information Care Team Personnel Name: APOLLO Arora, Vahid Harrison Position: Referring Member Role: Primary Care Provider Address: Address: [address] [place] [address] [place] [address]
[2023-04-10] MEDS: PANTOprazole 40 MG in DEXTROSE 5% MINI-B 100 ML IV SCH ×6 (00:31→23:55)
[2023-04-10 05:53] LABS: Hematocrit (blood only) 26.1 % (42.0-52.0); Hemoglobin 8.3 g/dl (14.0-18.0); Mean Corpuscular Hemoglobin 27.9 pg (25.0-34.0); Mean Corpuscular Hgb Conc 31.8 g/dL (32.0-36.0); Mean Corpuscular Volume 87.9 fL (80.0-100.0); Mean Platelet Volume 8.5 fL (9.4-12.4); Platelet Count 386 K/uL (130-400); RDW Coefficient of Variation 14.1 % (11.5-14.5); RDW Standard Deviation 45.1 fL (36.4-46.3); Red Blood Count 2.97 M/uL (4.70-6.10); White Blood Count 6.59 K/ul (4.8-10.8)
--- NOTE | 2023-04-10 06:46 | Hospitalist Progress Note ---
Date of Service April 10, 2023 Assessment & Plan (1) Acute upper gastrointestinal bleeding: (2) Anemia: (3) Past heart attack: Plan Acute upper gastrointestinal bleeding: Last known Hgb 9.2 (03/11/23[place] [facility] [place] Hgb 7.6 --> 8.3 --> 8.2 (04/10/23: 8 am) Pantoprazole 80mg IV bolus and drip Trend Hgb q6h Transfuse to aim Hgb > 7 NPO, consult gastroenterology, they plan to do EGD scope on 04/12/23, NPO at midnight 04/11/23 Colon adenocarcinoma s/p laparoscopic assisted ascending colectomy Well-differentiated with resection margins uninvolved Followed up with colorectal surgeon today Hx of myocardial infarction Prior 9 stent per patient reports Hold aspirin and lisinopril for now, restart aspirin if 2 pm H&H is stable Continue rosuvastatin Acute blood loss anemia Plts 386, Hgb 8.2 (04/10/23: 8 am) Plan VTE Prophylaxis - pharmacologically contraindicated Diet - NPO Disposition - admit to med/tele Admission and Anticipated Discharge Date Admission Date: April 09, 2023 Supervising Physician Co-Signing Physician Notes Attending attestation Pt seen and examined in concert with Dr. Rudd. In agreement with the documented findings as noted in the resident documentation with any exceptions or additions as noted here. Feeling overall better, less pale subjectively than on presentation. Tolerated transfusion well. No apparent melena, though does have some considerable consti pation (2 BM reported per week) w/o discomfort. On examination, S1/S2 nl RRR no MCG. CTAB. Abd NT/ND BS+ve VS: 124/63, 48, 18, 36.3C, 99 RA Data: hgb 8.2, BUN 13, Cr 0.74 Normo/microcytic anemia w/ GIB - trend CBC q6hs, transition to q8 w/ 2+ successive stable values. IV PPI BID. Pending EGD on Wednesday h/o myocardial infarction - restart ASA, continue to hold lisinopril, continue statin therapy Constipation w/ moderate fecal load on CT - consider addition of miralax BID to start when hgb stable Else see resident documentation as noted. Stef Lopez is a 77 year old male who presents to the ER with epigastric pain, generalized weakness and fatigue. Apparently he'd had laparoscopic assisted ascending colectomy at on March 04. He had routine outpatient follow up with his colorectal surgeon yesterday, appeared pale with generalized fatigue therefore sent to the ER for further eval. Last hemoglobin f rom [facility] EHR was 9.2 on 03/11 (day prior to discharge). Per outpatient note he was having chest/epigastric pain since thanksgiving however per patient it's lasted months, intermittently. Denied pain but last pain was earlier yesterday, 2 hours prior to ER arrival. Pain was not exertional and associated with food. Takes Tums every night for heartburn. No NSAID use. Takes daily aspirin for history of heart attack with 9 prior stents per report. He also notes a history of stomach ulcers and bleeds - his son notes in 2003 he was found in a puddle of blood, but does not take any PPI or H2 darius. Triage reports melena; patient denied this in ED but having BM once or twice a week. The patient is AAO x 2.5. He has been feeling less weak, more energetic since receiving 2 units of PRBCs. Review of Systems Constitutional: no fever and no chills Respiratory: no cough and no dyspnea Cardiovascular: no chest pain and no palpitations Gastrointestinal: + nausea (yesterday) and + melena (durin g last BM on ); no vomiting, no constipation and no diarrhea/loose stools Genitourinary: + urinary frequency (mild increase); no dysuria Results & Data Results & Data Vital Signs (Past 12 Hours) Vital Signs Temp Pulse Pulse Resp BP BP Pulse Ox 04/10/23 04:59 36.5 C 54 L 18 133/65 98 04/10/23 04:10 36.4 C L 55 L 18 124/63 98 04/10/23 03:10 36.4 C L 55 L 18 131/60 97 04/10/23 02:40 36.8 C 58 L 18 130/67 98 04/10/23 02:25 36.8 C 62 18 135/65 99 04/10/23 02:06 36.7 C 62 18 120/58 L 99 04/10/23 01:35 36.5 C 57 L 18 137/69 98 04/10/23 01:00 36.6 C 57 L 18 136/64 98 04/10/23 00:31 36.5 C 57 L 18 129/71 98 04/10/23 00:00 36.8 C 58 L 18 145/74 H 98 04/09/23 23:32 36.9 C 04/09/23 23:30 58 L 16 120/60 98 04/09/23 23:15 36.8 C 62 18 114/65 97 04/09/23 22:58 36.8 C 63 13 118/67 97 04/09/23 22:27 36.5 C 61 16 141/74 H 100 04/09/23 22:20 67 14 95 04/09/23 22:18 82 04/09/23 22:00 58 L 18 04/09/23 22:00 141/74 H 04/09/23 21:50 6 L 04/09/23 21:40 9 L 04/09/23 21:30 4 L 04/09/23 21:30 133/66 04/09/23 21:20 3 L 04/09/23 21:10 11 L 100 04/09/23 21:00 127/62 04/09/23 21:00 59 L 17 97 04/09/23 20:58 55 L 04/09/23 20:50 59 L 14 97 04/09/23 20:40 55 L 19 97 04/09/23 20:30 131/54 L 04/09/23 20:30 13 97 04/09/23 20:20 56 L 18 99 04/09/23 20:10 62 19 99 04/09/23 20:00 59 L 14 99 04/09/23 20:00 122/61 04/09/23 19:52 130/64 04/09/23 19:52 21 97 04/09/23 19:50 1 L 98 04/09/23 19:40 20 98 04/09/23 19:30 16 98 04/09/23 19:20 55 L 18 98 04/09/23 19:10 55 L 19 98 04/09/23 19:00 58 L 19 98 04/09/23 18:50 64 12 99 O2 Del Method O2 Flow Rate 04/10/23 04:59 04/10/23 04:10 04/10/23 03:10 0 04/10/23 02:40 0 04/10/23 02:25 04/10/23 02:06 04/10/23 01:35 04/10/23 01:00 0 04/10/23 00:31 0 04/10/23 00:00 0 04/09/23 23:32 04/09/23 23:30 0 04/09/23 23:15 0 04/09/23 22:58 0 04/09/23 22:27 Room Air 04/09/23 22:20 Room Air 04/09/23 22:18 04/09/23 22:00 04/09/23 22:00 04/09/23 21:50 04/09/23 21:40 04/09/23 21:30 04/09/23 21:30 04/09/23 21:20 04/09/23 21:10 04/09/23 21:00 04/09/23 21:00 04/09/23 20:58 04/09/23 20:50 04/09/23 20:40 04/09/23 20:30 04/09/23 20:30 04/09/23 20:20 04/09/23 20:10 04/09/23 20:00 Room Air 04/09/23 20:00 04/09/23 19:52 04/09/23 19:52 04/09/23 19:50 04/09/23 19:40 04/09/23 19:30 04/09/23 19:20 Room Air 04/09/23 19:10 04/09/23 19:00 04/09/23 18:50 Resident Activity Tracking Resident Involvement: Resident Care Provided Care Provided: Adult Hospital Medicine (2) Anemia Anemia type: unspecified type Qualified Code(s): D64.9 - Anemia, unspecified
[2023-04-10] MEDS: LACTATED RINGER'S 1,000 ML IV SCH ×2 (08:15→21:09)
[2023-04-10 08:38] LABS: BUN Creatinine Ratio 17.6 (10-20); Calcium 7.9 mg/dl (8.6-10.3); Creatinine Clr Calc Pharmacy 89.1 ml/min; Est GFR (African American) 104.6 ml/min; Est GFR (Non-African American) 90.2 ml/min; Potassium 3.6 mmol/L (3.5-5.1)
[2023-04-10 08:43] LABS: Hematocrit (blood only) 25.8 % (42.0-52.0); Hemoglobin 8.2 g/dl (14.0-18.0); Mean Corpuscular Hgb Conc 31.8 g/dL (32.0-36.0); Mean Corpuscular Volume 88.1 fL (80.0-100.0); Mean Platelet Volume 8.7 fL (9.4-12.4); Platelet Count 380 K/uL (130-400); RDW Coefficient of Variation 14.2 % (11.5-14.5); RDW Standard Deviation 45.7 fL (36.4-46.3); Red Blood Count 2.93 M/uL (4.70-6.10); White Blood Count 6.62 K/ul (4.8-10.8)
--- NOTE | 2023-04-10 12:08 | Gastrointestinal Consultation ---
Date of Consultation April 10, 2023 Assessment & Plan (1) Acute blood loss anemia: Patient likely has had some slow blood loss. He reports only 1-2 bowel movements weekly and states his last BM on Wednesday was brown though he has had intermittent black stools over the past month. He has not had any signs of GI bleeding during hospital stay and has not had any bowel movements here. He does have a history of GI bleeding 40 years ago due to PUD. We will plan for EGD on Wednesday for further evaluation. NPO at midnight on Wednesday. IV PPI 40 mg BID. Trend H/H and transfuse for hgb <7. Avoid NSAIDs. Ok to continue aspirin. If he develops signs of hemodynamic instability or profuse bleeding over the weekend please let me know as he may need more urgent endoscopy. (2) Colon adenocarcinoma: (3) Melena: History of Present Illness Reason for Consultation: concern for GI bleed Attending Physician: Marck Mcdonald MD History of Present Illness 77 y/o M with history of oral cancer with PEG tube that has since been removed, recent diagnosed of colon adenocarcinoma s/p R hemicolectomy on 03/04 through [facility], CAD s/p 9 PCI in the past only on baby asa admitted with weakness and fatigue. He was at his outpatient surgeon follow up appointment yetday when he told them he had been feeling weak and they felt that he looked pale so they sent him to [facility] ER was hgb was noted to be 6.8 (had been 9.2 on Mar 11 the day before he was discharged after surgery). He is not the best historian but he tells me he only has 1-2 bowel movements weekly. states his last bowel movement on Wednesday was brown but he has had intermittent black stools over the past month. He states they alternate between brown and black. Denies any iron supplementation. No NSAID use. He states he did have a GI bleed in "1965" due to PUD. He does not take any PPI at home. He has not had a BM since admission. Denies any hematochezia or hematemesis. He denies any abdominal pain, reflux, nausea, vomiting. On admission he recieved 2 units PRBC and hgb improved from 6.8 to 8.2. BUN 13 with Cr of 0.7. A CT of the abd/pelvis was completed which showed wall thickening of the distal esophagus concerning for esophagitis vs. malignancy and a moderate sized hiatal hernia. Allergies Allergy/AdvReac Type Severity Reaction Status Date / Time No Known Allergies Allergy Verified 04/09/23 15:26 Home Medications Medication Instructions Recorded Confirmed Type omega 3 350 mg-dha 235 mg-epa 90 1 cap PO QDL 05/19/18 04/09/23 History mg-fish oil 597 mg capsule,delay rel (Lindsay-3) aspirin 81 mg tablet 81 mg PO DAILY 04/09/23 04/09/23 History cholecalciferol (vitamin D3) 50 50 mcg PO DAILY 04/09/23 04/09/23 History mcg (2,000 unit) tablet (Vitamin D3) lisinopril 20 mg tablet 20 mg PO QAM 04/09/23 04/09/23 History rosuvastatin 10 mg tablet 10 mg PO HS 04/09/23 04/09/23 History vitamin B complex 1 tab PO DAILY 04/09/23 04/09/23 History vitamin E 100 unit tablet 100 unit PO QAM 04/09/23 04/09/23 History Patient History Medical History Interstitial lung disease Past heart attack Psoriasis GERD (gastroesophageal reflux disease) 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 Surgical History Status post aortic coarctation stent placement History of cancer surgery Social History Smoking Status: Current every day smoker Tobacco Type: Cigarettes Do You Dip or Chew Tobacco: No; Hx Alcohol Use: No Hx Substance Use: No Preferred Language: Armenian Communication Ability: Effective Visual Impairment: Partially Limited Hearing Ability: Hard of Hearing Insurance Law Specialist Required: No Beliefs That Will Affect Care: None marital status: Current Living Situation: Significant Other current occupational status: disabled Feels Safe at Home: Yes Assistive Devices: Cane and Walker Review of Systems Review of Systems: All systems reviewed & are unremarkable except as noted in HPI & below Physical Exam Constitutional: WD/WN, vitals as above Eyes: PERRL, conjunctivae normal, anicteric sclerae Respiratory: normal respiratory effort, lungs clear to auscultation Cardiovascular: RRR, no murmur, no edema Gastrointestinal (Abdomen): Well healed surgical incisions, there is a site in the LUQ where a PEG tube was previously placed. No pain to palpation. Non-distended, normoactive bowel sounds. Psychiatric: A+Ox3, euthymic affect Results & Data Vital Signs (Past 12 Hours) Vital Signs Temp Pulse Pulse Resp BP BP Pulse Ox 04/10/23 07:47 52 L 04/10/23 07:43 36.7 C 54 L 16 109/63 96 04/10/23 04:59 36.5 C 54 L 18 133/65 98 04/10/23 04:10 36.4 C L 55 L 18 124/63 98 04/10/23 03:10 36.4 C L 55 L 18 131/60 97 04/10/23 02:40 36.8 C 58 L 18 130/67 98 04/10/23 02:25 36.8 C 62 18 135/65 99 04/10/23 02:06 36.7 C 62 18 120/58 L 99 04/10/23 01:35 36.5 C 57 L 18 137/69 98 04/10/23 01:00 36.6 C 57 L 18 136/64 98 04/10/23 00:31 36.5 C 57 L 18 129/71 98 04/10/23 00:00 36.8 C 58 L 18 145/74 H 98 O2 Del Method O2 Flow Rate 04/10/23 07:47 04/10/23 07:43 Room Air 04/10/23 04:59 04/10/23 04:10 04/10/23 03:10 0 04/10/23 02:40 0 04/10/23 02:25 04/10/23 02:06 04/10/23 01:35 04/10/23 01:00 0 04/10/23 00:31 0 04/10/23 00:00 0
[2023-04-10 18:38] LABS: Hematocrit (blood only) 28.5 % (42.0-52.0); Hemoglobin 8.9 g/dl (14.0-18.0)
[2023-04-10 18:53] LABS: Appearance Urine Turbid (Clear); Bacteria Urine Automated Negative (Negative); Bilirubin Urine Negative (Negative); Blood Urine Negative (Negative); Cast Urine Automated 0 /lpf (0-5); Color Urine Yellow; Glucose Urine UA Negative (Negative); Ketones Urine Negative (Negative); Leukocyte Esterase Urine 1+ (Negative); Nitrite Urine Negative (Negative); Protein Urine Negative (Negative); RBC Urine Automated 0-4 /hpf (0-4); Specific Gravity Urine 1.026 (1.000-1.030); Urobilinogen Urine Negative (Negative); pH Urine 7.5 (4.5-7.5)
[2023-04-10] MEDS ORDERED: Nursing to Pharmacy Communication SCH (19:00)
[2023-04-10] MEDS: ROSUVASTATIN CALCIUM 10 MG TAB PO SCH (20:06)
[2023-04-10 23:29] LABS: Hematocrit (blood only) 26.1 % (42.0-52.0); Hemoglobin 8.4 g/dl (14.0-18.0)
[2023-04-11] MEDS ORDERED: Nursing to Pharmacy Communication SCH (03:30)
[2023-04-11] MEDS: PANTOprazole 40 MG in DEXTROSE 5% MINI-B 100 ML IV SCH ×4 (06:14→18:33)
--- NOTE | 2023-04-11 07:28 | Hospitalist Progress Note ---
"Date of Service April 11, 2023 Assessment & Plan (1) Acute upper gastrointestinal bleeding: (2) Anemia: (3) Constipation: (4) Past heart attack: (5) Colon adenocarcinoma: Plan Acute upper gastrointestinal bleeding: Last known Hgb 9.2 (03/11/23) [facility] [place] EHR Admission Hgb 7.6 --> 8.3 --|--> 8.5 (04/11/23: 7.11 am) Pantoprazole 80mg IV bolus and drip Trend Hgb AM Transfuse if Hgb < 8.0, w/ goal Hgb > 9.0 NPO, consult gastroenterology, they plan to do EGD scope on 04/12/23, NPO at midnight 04/11/23 Acute blood loss anemia Plts 386, Hgb 8.5 (04/11/23: 7.11 am) Constipation Docusate sodium, 100 mg, PO, BID/ Miralax, 17 g, PO, BID Colon adenocarcinoma s/p laparoscopic assisted ascending colectomy Well-differentiated with resection margins uninvolved Followed up with colorectal surgeon today Hx of myocardial infarction Prior 9 stent per patient reports Hold aspirin and lisinopril for now, restart aspirin if 2 pm H&H is stable Continue rosuvastatin Plan VTE Prophylaxis - pharmacologically contraindicated Diet - NPO Disposition - admit to med/tele Admission and Anticipated Discharge Date Admission Date: April 09, 2023 Supervising Physician Co-Signing Physician Notes Attending attestation Pt seen and examined in concert with Dr. Rudd. In agreement with the documented findings as noted in the resident documentation with any exceptions or additions as noted here. Persistent abdominal fullness with ongoing constipation without melena/hematochezia reported. On examination, S1/S2 nl RRR no MCG. CTAB. Abd NT/ND BS+ve VS: 113/66, 59, 16, 36.9C, 98RA Data: hgb 8.5, BUN 12, Cr 0.77 Normo/microcytic anemia w/ GIB - trend CBC q12. IV PPI BID. Pending EGD on Wednesday h/o myocardial infarction - continue ASA, hold lisinopril, continue statin therapy Constipation w/ moderate fecal load on CT - escalate bowel regimen with goal of 1-2 formed BM per day Else see resident documentation as noted. Stef Lopez is a 77 year old male who presents to the ER with epigastric pain, generalized weakness and fatigue. Apparently he'd had laparoscopic assisted ascending colectomy at [facility] on March 04. He had routine outpatient follow up with his colorectal surgeon yesterday, appeared pale with generalized fatigue therefore sent to the ER for further eval. Last hemoglobin from [facility] EHR was 9.2 on 03/11 (day prior to discharge). Per outpatient note he was having chest/epigastric pain since thanksgiving however per patient it's lasted months, intermittently. Denied pain but last pain was earlier yesterday, 2 hours prior to ER arrival. Pain was not exertional and associated with food. Takes Tums every night for heartburn. No NSAID use. Takes daily aspirin for history of heart attack with 9 prior stents per report. He also notes a history of stomach ulcers and bleeds - his son notes in 2003 he was found in a puddle of blood, but does not take any PPI or H2 darius. Triage reports melena; patient denied this in ED but having BM once or twice a week. The patient is AAO x 2.5. He has been feeling less weak, more energetic since receiving 2 units of PRBCs. Review of Systems Constitutional: no fever and no chills Respiratory: no cough and no dyspnea Cardiovascular: no chest pain and no palpitations Gastrointestinal: + abdominal pain (2/10 diffuse abd pain) , + nausea (yesterday) and + melena (during last BM on ); no vomiting, no constipation and no diarrhea/loose stools Genitourinary: + urinary frequency (mild increase); no dysuria Physical Exam Constitutional: WD/WN, vitals as above Respiratory: normal respiratory effort, lungs clear to auscultation Cardiovascular: RRR, no murmur, no edema Gastrointestinal (Abdomen): Inspection/Auscultation: abdomen normal to inspection and normal bowel sounds Percussion/Palpation: + abdomen tender (2/10 diffuse abd pain) Psychiatric: A+Ox3, euthymic affect Results & Data Results & Data Vital Signs (Past 12 Hours) Vital Signs Temp Pulse Pulse Resp BP BP Pulse Ox 04/11/23 03:08 36.5 C 54 L 18 111/75 96 04/10/23 23:29 36.7 C 57 L 18 132/67 97 04/10/23 22:00 44 L 04/10/23 20:30 04/10/23 20:06 36.7 C 59 L 18 165/69 H 97 O2 Del Method 04/11/23 03:08 Room Air 04/10/23 23:29 Room Air 04/10/23 22:00 04/10/23 20:30 Room Air 04/10/23 20:06 Room Air Resident Activity Tracking Resident Involvement: Resident Care Provided Care Provided: Adult Hospital Medicine (2) Anemia Anemia type: unspecified type Qualified Code(s): D64.9 - Anemia, unspecified"
[2023-04-11 07:36] LABS: Basophils # (auto) 0.03 K/uL (0.00-0.20); Basophils % (auto) 0.5 %; Eosinophils # (auto) 0.28 K/uL (0.00-0.50); Eosinophils % (auto) 4.7 %; Hematocrit (blood only) 27.1 % (42.0-52.0); Hemoglobin 8.5 g/dl (14.0-18.0); Immature Granulocytes # (auto) 0.02 K/uL (0.01-0.20); Immature Granulocytes % (auto) 0.3 %; Lymphocytes # (auto) 1.55 K/uL (1.20-3.40); Lymphocytes % (auto) 26.1 %; Mean Corpuscular Hemoglobin 27.7 pg (25.0-34.0); Mean Corpuscular Hgb Conc 31.4 g/dL (32.0-36.0); Mean Corpuscular Volume 88.3 fL (80.0-100.0); Mean Platelet Volume 8.7 fL (9.4-12.4); Monocytes # (auto) 0.72 K/uL (0.11-0.59); Monocytes % (auto) 12.1 %; Neutrophils # (auto) 3.34 K/uL (1.40-6.50); Neutrophils % (auto) 56.3 %; Platelet Count 350 K/uL (130-400); RDW Coefficient of Variation 14.1 % (11.5-14.5); RDW Standard Deviation 45.5 fL (36.4-46.3); Red Blood Count 3.07 M/uL (4.70-6.10); White Blood Count 5.94 K/ul (4.8-10.8)
[2023-04-11 07:50] LABS: Albumin Globulin Ratio 1.1 (0.9-2); Albumin Level 2.7 gm/dl (3.4-5.0); BUN Creatinine Ratio 15.6 (10-20); Bilirubin,Total 0.5 mg/dl (0.2-1.0); Calcium 7.5 mg/dl (8.6-10.3); Est GFR (African American) 102.9 ml/min; Est GFR (Non-African American) 88.8 ml/min; Globulin 2.4 gm/dl (2.5-4.0); Potassium 3.6 mmol/L (3.5-5.1); Total Protein 5.1 gm/dl (6.0-8.3)
[2023-04-11] MEDS: LACTATED RINGER'S 1,000 ML IV SCH (12:11)
[2023-04-11] MEDS: DOCUSATE SODIUM 100 MG CAP PO SCH ×2 (12:12→20:13)
[2023-04-11] MEDS: POLYETHYLENE (MIRALAX) 17 GM PACK PO SCH ×2 (12:12→20:13)
[2023-04-11 16:29] LABS: Hemoglobin 8.7 g/dl (14.0-18.0)
[2023-04-11] MEDS: ROSUVASTATIN CALCIUM 10 MG TAB PO SCH (20:13)
[2023-04-12] MEDS: PANTOprazole 40 MG in DEXTROSE 5% MINI-B 100 ML IV SCH ×5 (00:46→20:10)
[2023-04-12] MEDS ORDERED: LACTATED RINGER'S 1,000 ML IV SCH (08:00)
[2023-04-12] MEDS: DOCUSATE SODIUM 100 MG CAP PO SCH ×2 (08:02→20:11)
[2023-04-12] MEDS: POLYETHYLENE (MIRALAX) 17 GM PACK PO SCH ×2 (08:02→20:10)
--- NOTE | 2023-04-12 08:18 | Anesthesiology Consultation ---
Date of Service April 12, 2023 Assessment & Plan (1) Encounter for pre-operative examination: Chart Review Chart Review: Acceptable Risk for Surgery History Surgery Operation Date: 04/12/23 16:30 Proposed Procedures p Esophagogastroduodenoscopy Dr Clark Rodas, DO Height/Weight Height: 5 ft 10 in Weight: 71.6 kg Allergies Allergy/AdvReac Type Severity Reaction Status Date / Time No Known Allergies Allergy Verified 04/09/23 15:26 Medications Home Medications Medication Instructions Recorded Confirmed Last Taken omega 3 350 mg-dha 235 mg-epa 90 1 cap PO QDL 05/19/18 04/09/23 04/08/23 mg-fish oil 597 mg capsule,delay rel ([place]ak[place]-3) aspirin 81 mg tablet 81 mg PO DAILY 04/09/23 04/09/23 04/09/23 cholecalciferol (vitamin D3) 50 50 mcg PO DAILY 04/09/23 04/09/23 04/09/23 mcg (2,000 unit) tablet (Vitamin D3) lisinopril 20 mg tablet 20 mg PO QAM 04/09/23 04/09/23 04/09/23 rosuvastatin 10 mg tablet 10 mg PO HS 04/09/23 04/09/23 04/08/23 vitamin B complex 1 tab PO DAILY 04/09/23 04/09/23 04/09/23 vitamin E 100 unit tablet 100 unit PO QAM 04/09/23 04/09/23 04/09/23 Active Medications Generic Name Dose Route Start Last Admin Trade Name Freq PRN Reason Stop Dose Admin Docusate Sodium 100 mg 04/11/23 11:30 04/12/23 08:02 Docusate Sodium 100 Mg Cap PO 05/11/23 11:29 100 mg BID SCOT Administration Pantoprazole Sodium 40 mg/ 100 mls @ 20 mls/hr 04/09/23 17:00 04/12/23 06:29 Dextrose IV 05/09/23 16:59 8 mg/hr Q5H SCOT 20 mls/hr Administration 8 MG/HR Polyethylene Glycol 17 gm 04/11/23 11:30 04/12/23 08:02 Polyethylene (Miralax) 17 Gm Pack PO 05/11/23 11:29 17 gm BID SCOT Administration Rosuvastatin Calcium 10 mg 04/09/23 21:00 04/11/23 20:13 Rosuvastatin Calcium 10 Mg Tab PO 05/09/23 20:59 10 mg HS SCOT Administration Past Medical History Medical History (Updated 04/12/23 @ 08:18 by Lisandro Glez MD) Acute blood loss anemia Pressure ulcer of left buttock, stage 2 Interstitial lung disease Past heart attack Psoriasis GERD (gastroesophageal reflux disease) 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 Past Surgical History Surgical History Status post aortic coarctation stent placement History of cancer surgery Social History Smoking Status: Current every day smoker tobacco type: pipe Do You Dip or Chew Tobacco: No Hx Alcohol Use: No Hx Substance Use: No Physical Exam Vital Signs Last Vital Signs Temp 36.7 C 04/12/23 03:19 Pulse 54 L 04/12/23 07:33 Resp 18 04/12/23 03:19 BP 169/79 H 04/12/23 03:19 Pulse Ox 96 04/12/23 03:19 O2 Del Method Room Air 04/12/23 03:19 O2 Flow Rate 0 04/10/23 03:10 Testing Laboratory Results PT 10.9 Seconds (9.0-12.0) 04/09/23 14:25 INR 1.0 (0.9-1.1) 04/09/23 14:25 APTT 27.2 Seconds (21.0-31.0) 04/09/23 14:25 Urine Color Yellow 04/10/23 Unknown Urine Appearance Turbid (Clear) A 04/10/23 Unknown Urine pH 7.5 (4.5-7.5) 04/10/23 Unknown Ur Specific [place] 1.026 (1.000-1.030) 04/10/23 Unknown Urine Protein Negative (Negative) 04/10/23 Unknown Urine Glucose (UA) Negative (Negative) 04/10/23 Unknown Urine Ketones Negative (Negative) 04/10/23 Unknown Urine Nitrite Negative (Negative) 04/10/23 Unknown Ur Leukocyte Esterase 1+ (Negative) H 04/10/23 Unknown Urine WBC (Auto) 5-10 /hpf (0-5) H 04/10/23 Unknown Urine RBC (Auto) 0-4 /hpf (0-4) 04/10/23 Unknown U Hyaline Cast (Auto) 0 /lpf (0-5) 04/10/23 Unknown U Epithel Cells (Auto) 5-10 /lpf (0-5) H 04/10/23 Unknown Urine Bacteria (Auto) Negative (Negative) 04/10/23 Unknown Blood Type A Positive 04/09/23 14:25 Antibody Screen POSITIVE A 04/09/23 14:25 Laboratory Tests 04/11/23 04/11/23 07:11 15:53 Hgb 8.7 L Plt Count 350 Chloride 108 H Creatinine 0.77 Electrocardiogram Date: 04/09/23 Findings: + NSR @ (02)
[2023-04-12 08:26] LABS: Basophils # (auto) 0.05 K/uL (0.00-0.20); Basophils % (auto) 0.6 %; Eosinophils % (auto) 3.7 %; Hemoglobin 8.7 g/dl (14.0-18.0); Immature Granulocytes # (auto) 0.03 K/uL (0.01-0.20); Immature Granulocytes % (auto) 0.4 %; Lymphocytes # (auto) 2.05 K/uL (1.20-3.40); Lymphocytes % (auto) 25.1 %; Mean Corpuscular Hemoglobin 27.7 pg (25.0-34.0); Mean Corpuscular Hgb Conc 32.2 g/dL (32.0-36.0); Mean Platelet Volume 8.7 fL (9.4-12.4); Monocytes # (auto) 0.96 K/uL (0.11-0.59); Monocytes % (auto) 11.8 %; Neutrophils # (auto) 4.78 K/uL (1.40-6.50); Neutrophils % (auto) 58.4 %; Platelet Count 378 K/uL (130-400); RDW Coefficient of Variation 14.2 % (11.5-14.5); RDW Standard Deviation 44.2 fL (36.4-46.3); Red Blood Count 3.14 M/uL (4.70-6.10); White Blood Count 8.17 K/ul (4.8-10.8)
--- NOTE | 2023-04-12 08:33 | Hospitalist Progress Note ---
"Date of Service April 12, 2023 Assessment & Plan (1) Acute upper gastrointestinal bleeding: (2) Anemia: (3) Constipation: (4) Past heart attack: (5) Colon adenocarcinoma: Plan Acute upper gastrointestinal bleeding: Last known Hgb 9.2 (03/11/23) [facility] Hgb 7.6 --> 8.3 --|--> 8.7 (04/12/23: 7:55 am) Pantoprazole 80mg IV bolus and drip Trend Hgb AM Transfuse if Hgb < 8.0, w/ goal Hgb > 9.0 NPO, consult gastroenterology, they plan to do EGD scope on 04/12/23, NPO at midnight 04/11/23 -pt having his EGD today Acute blood loss anemia Plts 378, Hgb 8.7 (04/12/23: 7:55 am) Constipation Docusate sodium, 100 mg, PO, BID/ Miralax, 17 g, PO, BID -pt had first BM since 04.06.23 last night--ho, pebble-like, no monisha blood or melena Colon adenocarcinoma s/p laparoscopic assisted ascending colectomy Well-differentiated with resection margins uninvolved Followed up with colorectal surgeon today Hx of myocardial infarction Prior 9 stent per patient reports Hold aspirin and lisinopril for now, restart aspirin if 2 pm H&H is stable Continue rosuvastatin Plan VTE Prophylaxis - pharmacologically contraindicated Diet - NPO Disposition - admit to med/tele Admission and Anticipated Discharge Date Admission Date: April 09, 2023 Supervising Physician Co-Signing Physician Notes I personally examined the patient and verified all fernandez points of history and exam, discussed case, and agree with decision making with Dr Rudd feeling OK post scope. aware of results. notes that he had surgery at [facility] not too long ago for GI cancer as well Vitals noted, in general he is awake and alert pleasant no distress. HEENT normocephalic atraumatic mucous membranes moist. Breathing unlabored no accessory muscle use good effort. Skin shows no rashes no pallor or icterus. Neuro without focal deficits. Upper GI bleed with acute blood loss anemia due to apparent esophageal cancerstable status posttransfusion of 2 units packed red cells. Biopsy pending. Given his recent cancer and surgery, as well as current imaging, staging may essentially be already done, will await pathology and then workup further if necessary. May require repeated surgical evaluation for this in spite of the fact that he just had surgery for an apparent colon cancer. Subjective Steve Lopez is a 77 year old male who presents to the ER with epigastric pain, generalized weakness and fatigue. Apparently he'd had laparoscopic assisted ascending colectomy at [facility] on March 04. He had routine outpatient follow up with his colorectal surgeon yesterday, appeared pale with generalized fatigue therefore sent to the ER for further eval. Last hemoglobin from [facility] EHR was 9.2 on 03/11 (day prior to discharge). Per outpatient note he was having chest/epigastric pain since thanksgi however per patient it's lasted months, intermittently. Denied pain but last pain was 2 hours prior to ER arrival. Pain was not exertional and associated with food. Takes Tums every night for heartburn. No NSAID use. Takes daily aspirin for history of heart attack with 9 prior stents per report. He also notes a history of stomach ulcers and bleeds - his son notes in 2003 he was found in a puddle of blood, but does not take any PPI or H2 darius. Triage reports melena although patient denied this in ED but only having 1-2 BMs a week. Today the patient is AAO x 3. He has been feeling less weak, more energetic since receiving 2 units of PRBCs. Last night the patient had his first BM since 04.06.23--ho, small pebble-like, no signs of monisha blood or dark suggesting melena. Review of Systems Constitutional: no fever and no chills Respiratory: no cough and no dyspnea Cardiovascular: no chest pain and no palpitations Gastrointestinal: + constipation (ho like destiny for BM last night); no abdominal pain (2/10 diffuse abd pain), no nausea (yesterday), no vomiting, no diarrhea/loose stools and no melena (no melena in last stool, 04.11.23/ previous melena last Tues) Genitourinary: + urinary frequency (mild increase); no dysuria Physical Exam Constitutional: WD/WN, vitals as above Respiratory: normal respiratory effort, lungs clear to auscultation Cardiovascular: RRR, no murmur, no edema Gastrointestinal (Abdomen): Inspection/Auscultation: abdomen normal to inspection and normal bowel sounds Percussion/Palpation: + abdomen tender (2/10 diffuse abd pain) Psychiatric: A+Ox3, euthymic affect Results & Data Results & Data Vital Signs (Past 12 Hours) Vital Signs Temp Pulse Pulse Resp BP Pulse Ox O2 Del Method 04/12/23 08:15 36.9 C 53 L 16 140/72 96 Room Air 04/12/23 07:33 54 L 04/12/23 03:19 36.7 C 60 18 169/79 H 96 Room Air 04/11/23 23:23 37.0 C 57 L 18 134/66 99 Room Air 04/11/23 22:02 51 L 04/11/23 20:31 37.1 C 60 18 158/62 H 98 Room Air 04/11/23 20:30 Room Air (2) Anemia Anemia type: unspecified type Qualified Code(s): D64.9 - Anemia, unspecified"
[2023-04-12 08:35] LABS: BUN Creatinine Ratio 10.5 (10-20); Calcium 7.9 mg/dl (8.6-10.3); Est GFR (African American) 90.4 ml/min; Potassium 3.8 mmol/L (3.5-5.1)
[2023-04-12] MEDS ORDERED: METOCLOPRAMIDE HCL INJ 5 MG/ML 2 ML VIAL IV STA (09:12)
--- NOTE | 2023-04-12 09:15 | History & Physical Bridge Note ---
Date of Service April 12, 2023 History & Physical Bridge Note I have examined the patient, reviewed the History & Physical and in the interval since the performance of the History & Physical I have noted the following changes of clinical significance: no changes noted. Patient without complaints of chest pain, shortness of breath, nausea/vomiting, abdominal pain or overt GIB overnight. H&H is stable. Continues PPI ggt at 8 mg/hr. PE:A&Ox3. Lungs CTA bilaterally. RRR. Abdomen soft, nontender. Normal bowel sounds. A/P:Acute blood loss anemia and melena. -NPO. -Reglan 10 mg IV x 1 now. -Proceed with diagnostic EGD by Dr. Rodas today. -Continue PPI ggt at 8 mg/hr. -Further recommendations pending results of testing. Supervising Physician Co-Signing Physician Notes Agree with ROOPA Carl as above Abd: Soft, NT, ND, +BS Continue current therapy Proceed with EGD now
[2023-04-12] MEDS ORDERED: PROPOFOL IV EMULSION 10 MG/ML 20 ML VIAL IV ONE (14:33)
[2023-04-12] MEDS ORDERED: LIDOCAINE 2% 2 ML VIAL/AMP(20MG/ML) INFIL ONE ×2 (14:33)
--- NOTE | 2023-04-12 14:56 | GI REPORT ---
Patient Name: Steve Lopez Procedure Date: 04/12/2023 2:42 PM Date of : 1945 Admit Type: Inpatient Age: 77 Gender: Male Attending MD: Calderon Rodas DO, Procedure: Upper GI endoscopy Providers: Calderon Rodas DO Referring MD: Referred Self Indications: Melena Medicines: Monitored Anesthesia Care Complications: No immediate complications. Estimated Blood Loss: Estimated blood loss: none. Procedure: Pre-Anesthesia Assessment: - Prior to the procedure, a History and Physical was performed, and patient medications and allergies were reviewed. The patient's tolerance of previous anesthesia was also reviewed. The risks and benefits of the procedure and the sedation options and risks were discussed with the patient. All questions were answered, and informed consent was obtained. Prior Anticoagulants: The patient has taken no anticoagulant or antiplatelet agents except for aspirin. ASA Grade Assessment: III - A patient with severe systemic disease. After reviewing the risks and benefits, the patient was deemed in satisfactory condition to undergo the procedure. After obtaining informed consent, the endoscope was passed under direct vision. Throughout the procedure, the patient's blood pressure, pulse, and oxygen saturations were monitored continuously. The Endoscope was introduced through the mouth, with the intention of advancing to the duodenum. The scope was advanced to the gastric body before the procedure was aborted. Medications were given. The upper GI endoscopy was accomplished without difficulty. The patient tolerated the procedure well. Findings: A medium-sized, ulcerating mass with no bleeding and no stigmata of recent bleeding was found in the distal esophagus, 33 to 38 cm from the incisors. The mass was non-obstructing and not circumferential. Biopsies were taken with a cold forceps for histology. A large amount of food (residue) was found in the entire examined stomach. 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 Biopsied. - A large amount of food (residue) in the stomach. Recommendation: - [facility]. - Clear liquid diet. - Await pathology results. - Continue present medications. Calderon Rodas DO 04/12/2023 2:55:36 PM This report has been signed electronically. Note Initiated On: 04/12/2023 2:42 PM Number of Addenda: 0 I attest to the content of the Intraoperative Record and orders documented therein, exceptions below {[id number]}
--- NOTE | 2023-04-12 18:22 | Billing Data ---
Date of Service April 12, 2023 Coding Level of Care Code 87527 SUB INP/OBS CARE
[2023-04-12] MEDS: ROSUVASTATIN CALCIUM 10 MG TAB PO SCH (20:11)
[2023-04-13] MEDS: PANTOprazole 40 MG in DEXTROSE 5% MINI-B 100 ML IV SCH ×4 (03:43→18:08)
--- NOTE | 2023-04-13 06:56 | Hospitalist Progress Note ---
Date of Service April 13, 2023 Assessment & Plan (1) Acute upper gastrointestinal bleeding: (2) Anemia: (3) Constipation: (4) Past heart attack: (5) Colon adenocarcinoma: Plan Acute upper gastrointestinal bleeding: Last known Hgb 9.2 (03/11/23) [facility] [place] [facility] Admission Hgb 7.6 --> 8.3 --|--> 8.7 (04/12/23: 7:55 am) Pantoprazole 80mg IV bolus and drip Trend Hgb AM Transfuse if Hgb < 8.0, w/ goal Hgb > 9.0 NPO, consult gastroenterology, they plan to do EGD scope on 04/12/23, NPO at midnight 04/11/23 -pt having his EGD today S/P EGD "A medium-sized, ulcerating mass with no bleeding and no stigmata of recent bleeding was found in the distal esophagus, 33 to 38 cm from the incisors. The mass was non-obstructing and not circumferential. Biopsies were taken with a cold forceps for histology. 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 Biopsied. - A large amount of food (residue) in the stomach. Recommendation: [facility]. - Clear liquid diet. - Await pathology results." Acute blood loss anemia Plts 378, Hgb 8.7 (04/12/23: 7:55 am) Constipation Docusate sodium, 100 mg, PO, BID/ Miralax, 17 g, PO, BID -pt had first BM since 04.06.23 last night--ho, pebble-like, no monisha blood or melena Colon adenocarcinoma s/p laparoscopic assisted ascending colectomy Well-differentiated with resection margins uninvolved Followed up with colorectal surgeon today Hx of myocardial infarction Prior 9 stent per patient reports Hold aspirin and lisinopril for now, restart aspirin if 2 pm H&H is stable Continue rosuvastatin Plan VTE Prophylaxis - pharmacologically contraindicated Diet - NPO Disposition - admit to med/tele Admission and Anticipated Discharge Date Admission Date: April 09, 2023 Setf Lopez is a 77 year old male who presents to the ER with epigastric pain, generalized weakness and fatigue. Apparently he'd had laparoscopic assisted ascending colectomy at [facility] on March 04. He had routine outpatient follow up with his colorectal surgeon yesterday, appeared pale with generalized fatigue therefore sent to the ER for further eval. Last hemoglobin from [facility] EHR was 9.2 on 03/11 (day prior to discharge). Per outpatient note he was having chest/epigastric pain since thanksgi however per patient it's lasted months, intermittently. Denied pain but last pain was 2 hours prior to ER arrival. Pain was not exer tional and associated with food. Takes Tums every night for heartburn. No NSAID use. Takes daily aspirin for history of heart attack with 9 prior stents per report. He also notes a history of stomach ulcers and bleeds - his son notes in 2003 he was found in a puddle of blood, but does not take any PPI or H2 darius. Triage reports melena although patient denied this in ED but only having 1-2 BMs a week. Today the patient is AAO x 3. He has been feeling less weak, more energetic since receiving 2 units of PRBCs. Last night the patient had his first BM since 04.06.23--ho, small pebble-like, no signs of monisha blood or dark suggesting melena. Review of Systems Constitutional: no fever and no chills Respiratory: no cough and no dyspnea Cardiovascular: no chest pain and no palpitations Gastrointestinal: + constipation (ho like destiny for BM last night); no abdominal pain (2/10 diffuse abd pain), no nausea (yesterday), no vomiting, no diarrhea/loose stools and no melena (no melena in last stool, 04.11.23/ pr evious melena last Tues) Genitourinary: + urinary frequency (mild increase); no dysuria Physical Exam Constitutional: WD/WN, vitals as above Respiratory: normal respiratory effort, lungs clear to auscultation Cardiovascular: RRR, no murmur, no edema Gastrointestinal (Abdomen): Inspection/Auscultation: abdomen normal to inspection and normal bowel sounds Percussion/Palpation: + abdomen tender (2/10 diffuse abd pain) Psychiatric: A+Ox3, euthymic affect Results & Data Results & Data Vital Signs (Past 12 Hours) Vital Signs Temp Pulse Pulse Resp BP Pulse Ox O2 Del Method 04/13/23 04:50 36.6 C 60 16 165/75 H 98 Room Air 04/13/23 00:45 53 L 04/13/23 00:29 36.6 C 63 14 129/61 97 Room Air 04/12/23 20:14 36.6 C 60 18 157/73 H 97 Room Air (2) Anemia Anemia type: unspecified type Qualified Code(s): D64.9 - Anemia, unspecified
[2023-04-13 07:14] LABS: Basophils # (auto) 0.03 K/uL (0.00-0.20); Basophils % (auto) 0.4 %; Eosinophils # (auto) 0.32 K/uL (0.00-0.50); Eosinophils % (auto) 4.7 %; Hematocrit (blood only) 26.9 % (42.0-52.0); Hemoglobin 8.8 g/dl (14.0-18.0); Immature Granulocytes # (auto) 0.02 K/uL (0.01-0.20); Immature Granulocytes % (auto) 0.3 %; Lymphocytes # (auto) 1.92 K/uL (1.20-3.40); Lymphocytes % (auto) 28.1 %; Mean Corpuscular Hemoglobin 28.1 pg (25.0-34.0); Mean Corpuscular Hgb Conc 32.7 g/dL (32.0-36.0); Mean Corpuscular Volume 85.9 fL (80.0-100.0); Mean Platelet Volume 8.6 fL (9.4-12.4); Monocytes % (auto) 13.2 %; Neutrophils # (auto) 3.65 K/uL (1.40-6.50); Neutrophils % (auto) 53.3 %; Platelet Count 406 K/uL (130-400); RDW Coefficient of Variation 14.3 % (11.5-14.5); RDW Standard Deviation 44.1 fL (36.4-46.3); Red Blood Count 3.13 M/uL (4.70-6.10); White Blood Count 6.84 K/ul (4.8-10.8)
[2023-04-13 07:41] LABS: BUN Creatinine Ratio 12.3 (10-20); Calcium 7.9 mg/dl (8.6-10.3); Creatinine Clr Calc Pharmacy 77.6 ml/min; Est GFR (African American) 100.8 ml/min; Est GFR (Non-African American) 86.9 ml/min; Potassium 3.7 mmol/L (3.5-5.1)
[2023-04-13] MEDS: POLYETHYLENE (MIRALAX) 17 GM PACK PO SCH (08:23)
[2023-04-13] MEDS: DOCUSATE SODIUM 100 MG CAP PO SCH (08:23)
[2023-04-13] MEDS ORDERED: lisinopril 20 MG TAB PO SCH (09:00)
[2023-04-13] MEDS ORDERED: OPTIRAY 320 500ml IV ONE (15:31)
--- NOTE | 2023-04-13 16:07 | CT Scan Report ---
CT chest diagnostic wo/w con CT DOSE: 853.9 mGy.cm CLINICAL HISTORY: distal esophageal mass TECHNIQUE: Multiaxial CT images of the chest were performed both before and after the intravenous adm inistration of 89 cc of Optiray 320. A dose lowering technique was utilized adhering to the principl es of ERA. COMPARISON STUDY: Abdomen and pelvis CT 04/09/2023. FINDINGS: A few subcentimeter thyroid nodules. These do not meet CT criteria for pathologic involveme nt. Hyperdense subcentimeter mediastinal and hilar lymph nodes. These are likely benign. There is a m oderate hiatus hernia. Irregular thickening again noted at the distal esophagus with paraesophageal e juan and trace fluid. This likely corresponds to the patient's history of an esophageal mass. No evid ence for esophageal perforation at this time. There are few prominent distal paraesophageal lymph nod es with the largest on image 127 measuring 9 mm. These are concerning for metastatic disease. Limited views of the upper abdomen demonstrate a normal liver, spleen, and adrenal glands. Calcified plaque within the normal caliber thoracic aorta. The central pulmonary arteries are patent. There is mild le ft ventricular hypertrophy. Dense coronary artery calcifications are noted. No pericardial effusion. There are trace bilateral pleural effusions. No suspicious lytic or blastic osseous lesions. No pneum othorax. The central airways are patent. There is a 4 mm irregular nodule within the left lung apex o n image 15. This may represent an area of scarring. Mild interstitial thickening within the lungs mos t pronounced at the lung bases. This is likely chronic. IMPRESSION: 1. There is again noted irregular focal thickening within the distal esophagus likely corresponding t o the patient's history of an esophageal mass. There are few prominent adjacent distal paraesophageal lymph nodes concerning for metastatic disease. 2. A 4 mm irregular nodule within the left lung apex which favors scarring. This bears watching on fu ture examinations. 3. Basilar predominant chronic interstitial thickening. 4. Moderate hiatus hernia. 5. Trace bilateral pleural effusions. 6. Additional findings as described above. ACT 112: Negative or not required by law. Electronically signed by: Dandre Hinojosa M.D. 04/13/2023 4:05 PM
--- NOTE | 2023-04-13 17:42 | Discharge Summary ---
Date of Service April 13, 2023 Admission HPI Per Admitting Provider Steve Lopez is a 77 year old male who presents to the ER with epigastric pain, generalized weakness and fatigue. Very difficult to get a good history from the patient but generally he had laparoscopic assisted ascending colectomy at [facility] on March 04. He had a routine outpatient follow up with his colorectal surgeon today and he appeared pale with generalized fatigue therefore sent to the ER for further evaluation. His last hemoglobin pulled from the [facility] EHR was 9.2 on March 11 (day prior to discharge). Per outpatient note he was having chest.epigastric pain since thanksgiving however er patient it has been going on for months intermittently. He denies any current pain but his last pain was earlier today last 2 hours prior to arrival in the ER. Pain is not exertion and associated with food. He takes tums every night for heartburn. No NSAID use. Takes a daily aspirin for history of heart attack with 9 prior stents per report. He also notes a history of stomach ulcers and bleeds - his son notes in 2003 he was found in a puddle of blood, but does not take any PPI or H2 darius. Triage reports melena although the patient denies this to me and is only having a bowel movement once or twice a week. Principal Diagnosis esophageal cancer Discharge Exam In general he is awake alert oriented pleasant no distress. HEENT normocephalic atraumatic mucous membranes moist. Breathing unlabored no accessory muscle use good effort. Skin shows no rashes no pallor or icterus. Neuro without focal deficits. Gait is slow but steady and stable, we walk from his roomshe gets up unassisted, manages IV pole by himself, walks out into the hallway and probably about 20 feet down the [place] before we turn around and go back to his roomhe could have definitely gone further and was steady on his feet and without fatigue the whole time, he was able to sit down on his own unassisted and steady/stable as well. Discharge Data Allergies Allergy/AdvReac Type Severity Reaction Status Date / Time No Known Allergies Allergy Verified 04/12/23 14:29 Consultations 04/09/23 16:51 ED Decision to Admit Stat 04/09/23 20:52 Consult Gastroenterology Routine 04/13/23 17:24 Consult DUGLAS fur examiner Routine Consult DUGLAS fur examiner Routine Procedures Performed Operation Date: 04/12/23 16:30 Actual Procedures p EGD Biopsy Cytology - Calderon Sandoval Case, DO Ordered Studies 04/09/23 14:11 CT abd pelvis IV con only Stat 04/13/23 14:36 CT chest with and without contrast [CT chest diagnostic wo/w con] Routine Hospital Course (1) Acute upper gastrointestinal bleeding: (2) Anemia: (3) Constipation: (4) Past heart attack: (5) Colon adenocarcinoma: Plan Acute upper gastrointestinal bleeding: Due to esophageal malignancy. Bleeding is now resolved. Home on Protonix, outpatient follow-up/outpatient CBC follow-up. Acute blood loss anemia No signs of ongoing bleedingis status post 2 units transfusion due to the current bleed esophageal cancer- extremely unfortunate finding given that he really has just recovered from a colon cancer resection. CT scan does show some surrounding lymph nodesbut appears to be local only. I have asked to get a PET scan done MARCY. I have asked to get him in with [facility] thoracic surgery M[facility]Y. He is tolerating a regular dietwe discussed sticking with foods that are easy to swallow and avoiding things that could create a sticking hazard like chicken/crusty breads/etc. He understands the significance of what has been found. Colon adenocarcinoma s/p laparoscopic assisted ascending colectomy Well-differentiated with resection margins uninvolved Followed up with colorectal surgeon day of admission Hx of myocardial infarction Prior 9 stent per patient reports Hold aspirin and lisinopril for now, restart aspirin if 2 pm H&H is stable Continue rosuvastatin Plan safe for home, he wants to go home, looks steady on his feet and is up to going home. Outpatient PCP follow-up, outpatient CBC. Referral for PET scan and thoracic surgery evaluationasked both to be MARCY underway. Patient to return to the hospital M[facility] with any concerning symptoms, but right now appears quite stable for home. Total Time Total Time Spent Total Time Spent (In Minutes): <30 Discharge Plan Discharge Items Patient Disposition: Home - Self-Care Reason For Visit: UGI BLEED, ACUTE BLOOD LOSS ANEMIA Discharge Diagnosis: distal esophageal mass Activity: Resume your previous activity Non-emergency contact: Primary Care Provider Call non-emergency contact if: you have any medication questions, your pain is concerning for you and you have a fever Follow-up/Referrals: Vahid Arora, APOLLO [Primary Care Provider] - Diet: Regular Addtl Attending Provider Instructions: You were admitted to the hospital for upper GI bleeding, weakness, fatigue, melena. You were treated with packed red blood cells, pantoprazole. A discharge summary will be sent to your primary care physician to ensure continuity of care. Please bring this discharge summary with you to your next office appointment so that your provider can review it at that time. Follow-up appointments: We have requested a follow-up appointment with your primary care physician within one week of discharge. We are also in the process of arranging for you to have a PET scan/see an oncologist, and connect with a thoracic surgeon. Please call their office if you do not hear from them. Keep all your follow-up appointments as already scheduled. If you cannot make an appointment, notify your provider. Medications: Your medication list has been reviewed and reconciled upon discharge to ensure accuracy and continuity of care. An updated list of all your medications is included with your hospital discharge paperwork. Please review this list closely, and make note of any changes. Take your medications as instructed; do not skip a dose of your medicines. Make sure all of your doctors know every medicine you are taking (including qkiw-wfj-ohzjnxk medicines, vitamins, and supplements). Call your primary care provider before taking any new medicines (including ixje-eda-orvgbxy medicines, vitamins, and supplements), because some of these may interact with your current medications, or may make your symptoms worse. Tell your primary care provider if you cannot afford your medications. CONTACT YOUR PRIMARY CARE PROVIDER if you experience any of the following: difficulty swallowing food, spitting up blood continued weakness, fatigue, blood in your stool or darker than normal stool Difficulty following your treatment plan, or difficulty taking medications CALL 911 OR GO TO THE EMERGENCY DEPARTMENT if you experience any of the following: Sudden, severe abdominal pain or nausea/vomiting Severe chest pain, or chest pain that radiates (moves) to your jaw or arm Sudden, severe shortness of breath or difficulty breathing Thank you for allowing us to participate in your care Pending Studies at Discharge: No Stand-Alone Forms: My [employer], Smoking Cessation Medications and DC Order Prescriptions: Continued Challis-3 350 mg-235 mg- 90 mg-597 mg Capsule,Delayed Release(Dr/Ec) 1 cap PO QDL lisinopril 20 mg tablet 20 mg PO QAM vitamin B complex Tablet 1 tab PO DAILY aspirin 81 mg Tablet 81 mg PO DAILY vitamin E 100 unit Tablet 100 unit PO QAM rosuvastatin 10 mg tablet 10 mg PO HS cholecalciferol (vitamin D3) [Vitamin D3] 50 mcg (2,000 unit) Tablet 50 mcg PO DAILY Admission Data Admit Date/Time: 04/09/23 17:03 Attending Provider: Johnathan Gage Admit Provider: Graham Haider Primary Care Provider: Vahid Arora Other Providers: Graham Haider; Ra Brooks; Marck Mcdonald Coding Level of Care Code 23574 IN/OBS DISCH 30 MIN/LESS Diagnoses Acute upper gastrointestinal bleeding K92.2 Anemia D64.9 Anemia type: unspecified type Constipation K59.00 Past heart attack I25.2 Colon adenocarcinoma C18.9
--- NOTE | 2023-04-14 14:26 | Anesthesiology Progress Note ---
Date of Service April 14, 2023 Anesthesia Post Procedure Vital Signs Vital Signs: Temp Pulse Pulse Pulse Resp BP BP 04/13/23 17:55 36.3 C L 61 59 L 16 151/68 H 158/68 H 04/13/23 15:41 36.3 C L 59 L 16 158/68 H 04/13/23 15:00 59 L Pulse Ox O2 Del Method 04/13/23 17:55 99 04/13/23 15:41 99 Room Air 04/13/23 15:00 Pain Intensity Abdomen: Pain Intensity: 0 Transfer of Care Handoff Completed per policy Notes Mental Status: alert / awake / arousable Patient Amnestic to Procedure: Yes Nausea / Vomiting: adequately controlled Pain: adequately controlled Airway Patency, RR, SpO2: stable & adequate BP & HR: stable & adequate Hydration State: stable & adequate Anesthetic Complications: no major complications apparent
== END 2023-04-13 19:00 | disposition home health service (06) | DRG 375 ==
LOC: ED 13:57 → EDINP 17:03 → SUATTDRO 17:03 → EDINP 20:51 → 2N 04-10

== ENCOUNTER 2023-09-07 18:46 | Inpatient (IN) ==
[2023-09-07 19:37] LABS: Hematocrit (blood only) 34.6 % (42.0-52.0); Hemoglobin 10.9 g/dl (14.0-18.0); Mean Corpuscular Hemoglobin 27.7 pg (25.0-34.0); Mean Corpuscular Hgb Conc 31.5 g/dL (32.0-36.0); Mean Corpuscular Volume 87.8 fL (80.0-100.0); Mean Platelet Volume 9.1 fL (9.4-12.4); Platelet Count 195 K/uL (130-400); RDW Coefficient of Variation 25.6 % (11.5-14.5); RDW Standard Deviation 78.2 fL (36.4-46.3); Red Blood Count 3.94 M/uL (4.70-6.10); White Blood Count 6.39 K/ul (4.8-10.8)
[2023-09-07 19:53] LABS: Appearance Urine Cloudy (Clear); Bilirubin Urine Negative (Negative); Blood Urine 3+ (Negative); Color Urine Yellow; Glucose Urine UA Negative (Negative); Ketones Urine Negative (Negative); Leukocyte Esterase Urine 1+ (Negative); Nitrite Urine Negative (Negative); Protein Urine 3+ (Negative); Specific Gravity Urine 1.015 (1.000-1.030); Urobilinogen Urine Negative (Negative)
[2023-09-07 19:57] LABS: Alanine Aminotransferase 23 U/L (7-52); Albumin Globulin Ratio 1.2 (0.9-2); Albumin Level 3.3 gm/dl (3.4-5.0); Alkaline Phosphatase 63 U/L (34-104); Anion Gap 6 (3-11); Aspartate Aminotransferase 33 U/L (13-39); BUN Creatinine Ratio 16.3 (10-20); Bilirubin,Total 0.5 mg/dl (0.2-1.0); Blood Urea Nitrogen 16 mg/dl (6-23); Calcium 8.7 mg/dl (8.6-10.3); Carbon Dioxide 24 mmol/L (21-32); Chloride 105 mmol/L (98-107); Est GFR (African American) 86.5 ml/min; Est GFR (Non-African American) 74.6 ml/min; Globulin 2.7 gm/dl (2.5-4.0); Glucose 99 mg/dl (70-99(Fasting)); Potassium 3.9 mmol/L (3.5-5.1); Sodium 135 mmol/L (136-145)
[2023-09-07 20:05] LABS: Bacteria Urine 2+ (None Seen); Renal Epithelial Cells Urine Present /lpf (None Presnt); WBC Urine 21-50 /hpf (0-5)
[2023-09-07 20:08] LABS: Partial Thromboplastin Time 27 Seconds (21-31); Prothrombin Time 10.7 Seconds (9.0-12.0)
[2023-09-07 20:19] LABS: Basophils # (auto) 0.05 K/uL (0.00-0.20); Basophils % (auto) 0.8 %; Eosinophils # (auto) 0.09 K/uL (0.00-0.50); Eosinophils % (auto) 1.4 %; Immature Granulocytes # (auto) 0.04 K/uL (0.01-0.20); Immature Granulocytes % (auto) 0.6 %; Lymphocytes # (auto) 3.63 K/uL (1.20-3.40); Lymphocytes % (auto) 56.8 %; Monocytes # (auto) 0.85 K/uL (0.11-0.59); Monocytes % (auto) 13.3 %; Neutrophils # (auto) 1.73 K/uL (1.40-6.50); Neutrophils % (auto) 27.1 %; Polychromasia 1+
--- NOTE | 2023-09-07 20:25 | Emergency Department Note ---
Impression & Plan Acute UTI, Esophageal cancer, Weakness ED Provider Note Provider: Osman Moore MD DATE OF SERVICE: 09/07/2023 CHIEF COMPLAINT: Weak, urinary symptoms HISTORY OF PRESENT ILLNESS: Patient is a 78-year-old gentleman history of CAD, colon adenocarcinoma and esophageal cancer just completed a course of radiation chemotherapy sent with family today reporting weakness last several days with some low temperatures at home 95 F. Feeling more weak today and had to be assisted by family up off the floor as he had to sit down. No significant falls or trauma. Urinary frequency and burning and some trace blood. No trauma. Has been eating and drinking some and again using GJ tube prior placed as well. Denies significant chest pain or abdominal pain. No elevated temperatures reported. No history of UTI reported. Family concerned about his weakness or trying to his range for home care. Is a bit hard of hearing chronically with some chronic ear pain. PAST MEDICAL HISTORY: As noted above MEDICATIONS: Reviewed home medications SOCIAL HISTORY: PHYSICAL EXAM: GENERAL: alert and oriented in no acute distress on stretcher fatigued in appearance, somewhat hard of hearing Head: normocephalic and atraumatic EYES: No injection, discharge or icterus. EOMI. NECK: Trachea midline. Supple. ENT: Mucous membranes pink and moist. Pharynx without erythema or exudate. TMs with significant cerumen impaction bilaterally without erythema noted or mastoid swelling. LUNGS: Airway patent. No retractions. Breath sounds clear with good air entry bilaterally. HEART: Regular rate and rhythm. No chest wall tenderness ABDOMEN: Soft and non-tender, without guarding or rebound. GJ tube present in upper abdomen SKIN: Acyanotic, warm, dry, without rashes EXTREMITIES: Without swelling, tenderness or deformity NEUROLOGICAL: No focal deficits moving all extremities. No aphasia. No facial droop or slurred speech. EK bpm sinus rhythm occasional PVC. No acute ST segment elevation or depression with a QTc of 489. CONTINUOUS CARDIAC MONITORING: was ordered and showed a heart rate of 70s to 80s bpm in normal sinus rhythm Patient's laboratory studies and imaging reviewed. Differential includes Infection, dehydration, metabolic abnormality, hypo/hyperglycemia, electrolyte disturbance, anemia, hypoxia, cardiac sources, intracerebral event, toxicologic, neurologic, as well as other pathologies. IMPRESSION/MEDICAL DECISION MAKING: No significant focal deficit. Doubt CVA. Doubt meningitis. Blood work here without leukopenia or neutropenia white blood cell count normal. Was previously on chemotherapy. Urinalysis concerning for possible blood as well as UTI. Not having severe flank or back pain and I doubt kidney stone or intra-abdominal pathology. Doubt obstruction or volvulus. Stable mild anemia 10.9. No significant renal dysfunction or evidence of electrolyte abnormalities. No significant evidence of hepatitis. Doubt pancreatitis not having significant vomiting symptoms. Given about hydration here. Urinary frequency with appears to be UTI. Will send for culture. Blood cultures to be completed as well as lactate. Lactate not elevated. Procalcitonin not severely elevated at 0.06. Will cover with broad-spectrum ceftriaxone with concern for UTI. Discussion with patient and family at bedside given his weakness and ambulatory issues now I believe he needs more additional home care besides what they can provide. Will bring the patient overnight to see if his symptoms improve with antibiotics and see what other support can be arranged to help with the patient's care at home. DIAGNOSIS: Acute UTI, weakness, esophageal cancer DISPOSITION: Hospitalist will evaluate Patient was agreeable with this plan. 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), 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 Surgical History (Updated 06/18/23 @ 11:11 by Cindy Rocha RN) Encounter for PEG (percutaneous endoscopic gastrostomy) (06/17/23) p Insertion Access Port Left Subclavian with Fluoroscopy(Left) - Ritchie Orozco, DO s Esophagogastroduodenoscopy with Insertion of Gastrostomy Tube(Not Applicable) - Ritchie Orozco, DO Port-A-Cath in place (06/17/23) p Insertion Access Port Left Subclavian with Fluoroscopy(Left) - Ritchie Orozco, DO s Esophagogastroduodenoscopy with Insertion of Gastrostomy Tube(Not Applicable) - Ritchie Orzoco, History of esophagogastroduodenoscopy (EGD) Hx of colonoscopy History of nasal surgery Summer 2022 (jaw/nasal surgery) History of cardiac cath 2009- stent(s) ~2020 ([facility] [place])- 2 stents 2022 Multiple caths/stents including the above noted, Total of 9 stents per spouse History of colon resection Hx of oral surgery Jaw surgery 2012 (r/t cancer) Status post aortic coarctation stent placement 10+ years ago Family History (Updated 06/23/23 @ 13:23 by Luz Elena Martinez, RN) Sister Diabetes Sister Cancer Breast Brother Cancer Lung Brother Cancer Colon Social History (Updated 06/23/23 @ 13:25 by Luz Elena Martinez, RN) Smoking Status: Former smoker Tobacco Type: Pipe Second Hand Exposure: Yes (hx); Do You Dip or Chew Tobacco: No; Hx Alcohol Use: Yes Alcohol type: hard liquor Hx Substance Use: No Preferred Language: Turkmen Communication Ability: Effective Visual Impairment: Partially Limited Hearing Ability: Normal Usability Specialist Required: No Beliefs That Will Affect Care: None marital status: Married2 Current Living Situation: Spouse and Family current occupational status: disabled Feels Safe at Home: Yes Diet Comment: soft foods during the past year weight has: decreased > 10 lbs Assistive Devices: Denture - Upper and Glasses Allergies Allergies Allergy/AdvReac Type Severity Reaction Status Date / Time No Known Allergies Allergy Verified 09/07/23 20:54 Home Meds Home Medications Medication Instructions Recorded Confirmed lisinopril 20 mg tablet 10 mg PO QAM 04/09/23 09/07/23 rosuvastatin 10 mg tablet 10 mg PO HS 04/09/23 09/07/23 aspirin 81 mg tablet,delayed 81 mg PO QAM 09/07/23 09/07/23 release cholecalciferol (vitamin D3) 50 50 mcg PO QAM 09/07/23 09/07/23 mcg (2,000 unit) capsule (Vitamin D3) Previous Rx's Medication Instructions Recorded pantoprazole 40 mg tablet,delayed 40 mg PO BID #60 tabs 04/13/23 release (Protonix) Results & Data (ED) Vital Signs Vital Signs - 24 hr 09/07/23 18:53 09/07/23 19:10 09/07/23 19:13 Temperature 36.3 C L Temperature Source Temporal Artery Scan Pulse Rate 90 85 Pulse Rate [Left Finger] 86 Pulse Rate from SpO2 Sensor Respiratory Rate 18 20 Blood Pressure 81/57 L Blood Pressure [Left Arm] 96/69 L Blood Pressure Mean 65 Blood Pressure Mean [Left Arm] 78 Blood Pressure Position Sitting Blood Pressure Position [Left Arm] Sitting Pulse Oximetry 98 98 Oxygen Delivery Method Room Air Room Air Sepsis Recent Fever Within 48 Hours No Sepsis New/Unexplained Change in Mental Status No Sepsis Action Taken by Nursing No Action Required 09/07/23 19:20 09/07/23 19:30 09/07/23 20:00 Temperature Temperature Source Pulse Rate 84 86 86 Pulse Rate [Left Finger] Pulse Rate from SpO2 Sensor Respiratory Rate 21 18 15 Blood Pressure 106/69 131/79 94/62 L Blood Pressure [Left Arm] Blood Pressure Mean 81 96 72 Blood Pressure Mean [Left Arm] Blood Pressure Position Blood Pressure Position [Left Arm] Pulse Oximetry 99 100 99 Oxygen Delivery Method Room Air Room Air Room Air Sepsis Recent Fever Within 48 Hours Sepsis New/Unexplained Change in Mental Status Sepsis Action Taken by Nursing 09/07/23 20:30 09/07/23 21:00 09/07/23 21:30 Temperature Temperature Source Pulse Rate 85 78 80 Pulse Rate [Left Finger] Pulse Rate from SpO2 Sensor Respiratory Rate 16 15 24 Blood Pressure 103/70 128/79 138/82 Blood Pressure [Left Arm] Blood Pressure Mean 81 95 100 Blood Pressure Mean [Left Arm] Blood Pressure Position Blood Pressure Position [Left Arm] Pulse Oximetry 99 99 100 Oxygen Delivery Method Room Air Room Air Room Air Sepsis Recent Fever Within 48 Hours Sepsis New/Unexplained Change in Mental Status Sepsis Action Taken by Nursing 09/07/23 21:59 09/07/23 22:00 09/07/23 22:01 Temperature Temperature Source Pulse Rate 89 79 Pulse Rate [Left Finger] Pulse Rate from SpO2 Sensor 76 Respiratory Rate 14 Blood Pressure 125/75 Blood Pressure [Left Arm] Blood Pressure Mean 92 Blood Pressure Mean [Left Arm] Blood Pressure Position Blood Pressure Position [Left Arm] Pulse Oximetry 97 97 Oxygen Delivery Method Room Air Sepsis Recent Fever Within 48 Hours Sepsis New/Unexplained Change in Mental Status Sepsis Action Taken by Nursing Laboratory Data 09/07/23 19:17 09/07/23 19:17 Lab Results 09/07/23 09/07/23 09/07/23 Range/Units 19:17 19:27 20:58 WBC 6.39 (4.8-10.8) K/ul RBC 3.94 L (4.70-6.10) M/uL Hgb 10.9 L (14.0-18.0) g/dl Hct 34.6 L (42.0-52.0) % MCV 87.8 (80.0-100.0) fL MCH 27.7 (25.0-34.0) pg MCHC 31.5 L (32.0-36.0) g/dL RDW Std Deviation 78.2 H (36.4-46.3) fL RDW Coeff of Monet 25.6 H (11.5-14.5) % Plt Count 195 (130-400) K/uL MPV 9.1 L (9.4-12.4) fL Immature Gran % (Auto) 0.6 % Neut % (Auto) 27.1 % Lymph % (Auto) 56.8 % Stokes % (Auto) 13.3 % Eos % (Auto) 1.4 % Baso % (Auto) 0.8 % Neut # (Auto) 1.73 (1.40-6.50) K/uL Lymph # (Auto) 3.63 H (1.20-3.40) K/uL Stokes # (Auto) 0.85 H (0.11-0.59) K/uL Eos # (Auto) 0.09 (0.00-0.50) K/uL Baso # (Auto) 0.05 (0.00-0.20) K/uL Immature Gran # (Auto) 0.04 (0.01-0.20) K/uL Polychromasia 1+ PT 10.7 (9.0-12.0) Seconds INR 1.0 (0.9-1.1) APTT 27 (21-31) Seconds PTT Ratio 1.0 Sodium 135 L (136-145) mmol/L Potassium 3.9 (3.5-5.1) mmol/L Chloride 105 (98-107) mmol/L Carbon Dioxide 24 (21-32) mmol/L Anion Gap 6 (3-11) BUN 16 (6-23) mg/dl Creatinine 0.98 (0.6-1.4) mg/dl Est Cr Clr Drug Dosing Not Reportable Est GFR ( Amer) 86.5 ml/min Est GFR (Non-Af Amer) 74.6 ml/min BUN/Creatinine Ratio 16.3 (10-20) Glucose 99 (70-99(Fasting)) mg/dl Lactate 1.1 (0.4-2.0) mmol/L Calcium 8.7 (8.6-10.3) mg/dl Magnesium 1.9 (1.7-2.4) mg/dl Total Bilirubin 0.5 (0.2-1.0) mg/dl AST 33 (13-39) U/L ALT 23 (7-52) U/L Alkaline Phosphatase 63 (34-104) U/L Troponin I High Sens 13.3 (0-20) pg/ml Total Protein 6.0 (6.0-8.3) gm/dl Albumin 3.3 L (3.4-5.0) gm/dl Globulin 2.7 (2.5-4.0) gm/dl Albumin/Globulin Ratio 1.2 (0.9-2) Procalcitonin 0.06 (0-0.5) ng/ml Urine Color Yellow Urine Appearance Cloudy A (Clear) Urine pH 6.0 (4.5-7.5) Ur Specific [place] 1.015 (1.000-1.030) Urine Protein 3+ H (Negative) Urine Glucose (UA) Negative (Negative) Urine Ketones Negative (Negative) Urine Blood 3+ H (Negative) Urine Nitrite Negative (Negative) Urine Bilirubin Negative (Negative) Urine Urobilinogen Negative (Negative) Ur Leukocyte Esterase 1+ H (Negative) Urine RBC 11-20 H (0-2) /hpf Urine WBC 21-50 H (0-5) /hpf Ur Epithelial Cells 6-10 H (0-2) /hpf Ur Renal Epithelial Cell Present A (None Presnt) /lpf Urine Bacteria 2+ H (None Seen) Administered Medications Discontinued Medications Sodium Chloride (Nss) 1,000 mls @ 999 mls/hr IV .Q1H1M ONE Stop: 09/07/23 21:17 Last Infusion: 09/07/23 21:39 Dose: Infused Documented By: Admin: 09/07/23 20:44 Dose: 999 mls/hr Documented By: MICHELLE Ceftriaxone Sodium (Rocephin) 2,000 mg in 50 mls @ 100 mls/hr IV NOW STA Stop: 09/07/23 20:46 Last Infusion: 09/07/23 22:15 Dose: Infused Documented By: Admin: 09/07/23 21:39 Dose: 100 mls/hr Documented By: MICHELLE Discharge Plan Visit Data Chief Complaint: Referred by Doctor Stated Complaint: WEAKNESS, FALL DOWN, BLOOD URINE, BURNING ED Provider: Osman Moore Discharge Problem: Acute UTI, Esophageal cancer, Weakness Patient Disposition: Admitted As Inpatient Discharge Instructions Interventions: ED Discharge Assessment Last Done: 09/07/23 22:24 Forms Stand Alone Forms: STARFACE Prescriptions Prescriptions: No Action lisinopril 20 mg tablet 10 mg PO QAM rosuvastatin 10 mg tablet 10 mg PO HS pantoprazole [Protonix] 40 mg tablet,delayed release (DR/EC) 40 mg PO BID Qty: 60 0RF aspirin 81 mg Tablet,Delayed Release (Dr/Ec) 81 mg PO QAM cholecalciferol (vitamin D3) [Vitamin D3] 50 mcg (2,000 unit) Capsule 50 mcg PO QAM Referrals Referrals: Giovana Arnold CRNP [Primary Care Provider] - Discharge Problem: Esophageal cancer Qualifiers: Malignant neoplasm of esophagus location: unspecified location Qualified Code(s): C15.9 - Malignant neoplasm of esophagus, unspecified
[2023-09-07] MEDS: SODIUM CHLORIDE 0.9% 1,000 ML IV ONE (20:44)
[2023-09-07] MEDS ORDERED: ACETAMINOPHEN 1,000 MG/100 ML VIAL IV PRN (21:07)
--- NOTE | 2023-09-07 21:24 | History & Physical Report ---
Date of Service September 07, 2023 Assessment & Plan (1) Urinary tract infection: Plan: Assessment: 1. Early clinical sepsis with hypotension and relative tachycardia with urinary source. IV fluid resuscitation, IV antibiotic therapy-Rocephin, blood cultures. 2. Urinary tract infection. IV Rocephin for now antibiotic therapy should be tailored once sensitivities are resulted. 3. Generalized weakness probably secondary to the above. 4. 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 5. Remote history of colon cancer/adenocarcinoma of the colon status post resection. 6. Subacute bleed/recent diagnosis of esophageal adenocarcinoma currently under chemotherapy radiation treatment. Is tolerating a soft diet at this time but has a J-tube in place for ongoing tube feed supplementation. 7. Ex tobacco abuse he quit smoking approximately 3 to 4 weeks ago with the chemotherapy he states that he lost his desire to smoke after chemotherapy. 8. Extensive history of coronary artery disease status post multiple PCI with stenting x 9 per the medical record 9. Anemia of chronic disease-stable 10.9 g/dL hemoglobin 10. Rule out atypical presentation of non-STEMI given the patient's history. Troponin is pending. EKG is reassuring with a sinus rhythm with PVCs again magnesium levels ordered and has subsequently been resulted at 1.9. Plan: As discussed above. Please refer to orders for further planning. History of Present Illness Chief Complaint: Weakness/fatigue Primary Care Provider: ROOPA Tamez This is a pleasant 78-year-old male who has a longstanding history of malignancy. 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 Approximately 18 months 2 years ago initially diagnosed with colon adenocarcinoma underwent resection and treatment none approximately 3 to 4 months ago was diagnosed with primary esophageal adenocarcinoma. The patient has just completed recently round of chemotherapy radiation treatment for his primary esophageal adenocarcinoma. He does have a J-tube in place. However over the last couple weeks he has commenced a diet he is eating mostly soft diet with soups macaroni and cheese mashed potatoes etc. he is tolerating that well but currently still supplementing with tube feedings 1 can 4 times a day the family and patient did not remember the name of the specific tube feeding he is using. Today he had increase in his weakness. He was unable to ambulate by himself this evening where earlier this morning he was. He was brought to the ER for further evaluation and treatment. The patient denies any significant pain. Laboratory studies revealed some anemia and relative leukocytosis his white count had been suppressed from the chemo but now is normal at 6. In addition urinalysis was positive for a UTI. Blood cultures were obtained the patient was given IV ceftriaxone and we are called with the patient further evaluation and treatment. Patient had early clinical sepsis on presentation with relative hypotension as low as 81/57 as well as borderline tachycardia at 90 bpm. The patient also received IV fluids for volume resuscitation in the ER. Excepted the patient lactic acid level has subsequently been resulted as within normal limits. Troponin is pending the patient has an extensive cardiac history. EKG was reassuring with multiple PVCs. Magnesium levels been ordered and will be replaced if necessary. Allergies Allergy/AdvReac Type Severity Reaction Status Date / Time No Known Allergies Allergy Verified 09/07/23 20:54 Home Medications Medication Instructions Recorded Confirmed Type lisinopril 20 mg tablet 10 mg PO QAM 04/09/23 09/07/23 History rosuvastatin 10 mg tablet 10 mg PO HS 04/09/23 09/07/23 History pantoprazole 40 mg tablet,delayed 40 mg PO BID #60 tabs 04/13/23 09/07/23 Rx release (Protonix) aspirin 81 mg tablet,delayed 81 mg PO QAM 09/07/23 09/07/23 History release cholecalciferol (vitamin D3) 50 50 mcg PO QAM 09/07/23 09/07/23 History mcg (2,000 unit) capsule (Vitamin D3) Past Med/Surg History Medical History (Updated 09/07/23 @ 21:28 by Abdulaziz Elliott, PhD, DO) CAD (coronary artery disease) 2009- stent(s) ~2020 ([facility])- 2 stents Multiple caths/stents including the above noted, Total of 9 stents per spouse History of upper gastrointestinal bleeding 04/2023 Hyperlipidemia Hypertension Hx of myocardial infarction 2009 Follows with [facility] Hx of esophageal malignancy 04/2023, no tx as of 06/2023 History of colon cancer Dx 2022 > colon resection Interstitial lung disease Chronic cough Psoriasis GERD (gastroesophageal reflux disease) 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), 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 Surgical History (Updated 06/18/23 @ 11:11 by Cindy Rocha RN) Encounter for PEG (percutaneous endoscopic gastrostomy) (06/17/23) p Insertion Access Port Left Subclavian with Fluoroscopy(Left) - Ritchie Orozco, s Esophagogastroduodenoscopy with Insertion of Gastrostomy Tube(Not Applicable) - Ritchie Orozco DO Port-A-Cath in place (06/17/23) p Insertion Access Port Left Subclavian with Fluoroscopy(Left) - Ritchie Orozco DO s Esophagogastroduodenoscopy with Insertion of Gastrostomy Tube(Not Applicable) - Ritchie Orozco, DO History of esophagogastroduodenoscopy (EGD) Hx of colonoscopy History of nasal surgery Summer 2022 (jaw/nasal surgery) History of cardiac cath 2009- stent(s) ~2020 ([facility] [place])- 2 stents 2022 Multiple caths/stents including the above noted, Total of 9 stents per spouse History of colon resection Hx of oral surgery Jaw surgery 2012 (r/t cancer) Status post aortic coarctation stent placement 10+ years ago Family History (Updated 06/23/23 @ 13:23 by Luz Elena Martinez, EVA) Sister Diabetes Sister Cancer Breast Brother Cancer Lung Brother Cancer Colon Social History (Updated 06/23/23 @ 13:25 by Luz Elena Martinez RN) Smoking Status: Former smoker Tobacco Type: Pipe Second Hand Exposure: Yes (hx); Do You Dip or Chew Tobacco: No; Hx Alcohol Use: Yes Alcohol type: hard liquor Hx Substance Use: No Preferred Language: Frisian Communication Ability: Effective Visual Impairment: Partially Limited Hearing Ability: Normal Kinesiologist Required: No Beliefs That Will Affect Care: None marital status: Married2 Current Living Situation: Spouse and Family current occupational status: disabled Feels Safe at Home: Yes Diet Comment: soft foods during the past year weight has: decreased > 10 lbs Assistive Devices: Denture - Upper and Glasses Review of Systems Review of Systems: A 10 point review of system was obtained and unless otherwise stated here or in history of present illness are negative and noncontributory to chief complaint. Physical Exam Physical Exam: In General: In general this is a pleasant 78-year-old male who is alert and oriented x 3 at the time my exam he is accompanied by his significant other/common-law they have been together for 10 years. He is also accompanied by his son Steve Crandall. The patient interacts appropriately and has no specific complaints. HEENT: Atraumatic however the patient has obvious anatomical defects from his mandible removal and reconstructive surgery from his face from his bone cancer years ago. With what appears to be possibly a radical neck dissection on that side as well. However otherwise his pupils are equal round and react to light bilaterally, no scleral icterus, extraocular muscles intact bilaterally. Oral mucosa is pink and dry. NECK: Supple no rigidity no lymphadenopathy no thyromegaly no carotid bruits no JVD no masses. Postoperative changes noted as above HEART: Regular rate and rhythm I do not appreciate any ectopy or rub. No murmur. LUNGS: Clear to auscultation bilaterally and anteriorly with no evidence of adventitious sounds/wheezes rales or rhonchi. ABDOMEN: Soft nontender, no rebound, no peritoneal signs, positive bowel sounds, no appreciable organomegaly. G-tube noted in the mid quadrant surrounding areas intact clean and dry with no surrounding erythema or discharge. EXTREMITIES: Intact, no peripheral cyanosis, clubbing or edema. Strength is 5 out of 5 in extremities x4, no pathological reflexes. NEUROLOGICAL: Cranial nerves II through XII are grossly intact with no focal deficit elicited upon examination. No tremor. Results & Data Results & Data Vital Signs (Past 12 Hours) Vital Signs Temp Pulse Pulse Resp BP BP Pulse Ox 09/07/23 20:30 85 16 103/70 99 09/07/23 20:00 86 15 94/62 L 99 09/07/23 19:30 86 18 131/79 100 09/07/23 19:20 84 21 106/69 99 09/07/23 19:13 86 20 96/69 L 98 09/07/23 19:10 85 09/07/23 18:53 36.3 C L 90 18 81/57 L 98 O2 Del Method 09/07/23 20:30 Room Air 09/07/23 20:00 Room Air 09/07/23 19:30 Room Air 09/07/23 19:20 Room Air 09/07/23 19:13 Room Air 09/07/23 19:10 09/07/23 18:53 Room Air Code Status & VTE Plan Code Status Full code. I personally discussed with the patient today and he has made it clear that he is in a predicament where he cannot speak for himself that his son, Steve Crandall is to make decisions for him VTE Prophylaxis Plan VTE Prophylaxis will be ordered: Yes PG Care Time/CCT Total # of Minutes Spent Total Time Spent with Patient: Total time spent is greater than 50% in coordination of care (as documented) at patient's floor/unit and/or counseling patient: Coding Level of Care Code 05242 INT INP/OBS CARE 3/75MIN Diagnoses Urinary tract infection N39.0
[2023-09-07 21:26] LABS: Magnesium 1.9 mg/dl (1.7-2.4)
[2023-09-07 21:33] LABS: Troponin I High Sensitivity 13.3 pg/ml (0-20)
[2023-09-07] MEDS: cefTRIAXone SODIUM 2,000 MG/50 ML BAG IV STA (21:39)
[2023-09-07] MEDS: LACTATED RINGER'S 1,000 ML IV SCH (22:54)
[2023-09-08] MEDS: ENOXAPARIN INJ 40 MG/0.4 ML SYR SQ SCH (00:10)
--- NOTE | 2023-09-08 06:59 | XRay Report ---
SINGLE VIEW CHEST CLINICAL HISTORY: Generalized weakness. FINDINGS: An AP upright chest radiograph is compared to study dated 06/17/2023. Correlation is made wit h chest CT dated 04/13/2023 A left subclavian central venous infusion port is unchanged in position. T he heart is enlarged noting atherosclerotic calcification of the thoracic aorta. The pulmonary vascul ature is nondistended congested. Chronic interstitial thickening is previous. There are small pleural effusions with dependent consolidation. No pneumothorax is seen. The skeletal structures are osteope trey. The bony thorax is grossly intact. IMPRESSION: 1. Cardiomegaly without radiographic evidence of congestive failure. 2. Small pleural effusions with dependent consolidation. Correlate clinically. ACT 112: Negative or not required by law. Electronically signed by: Houston Wiseman M.D. 09/08/2023 6:58 AM
[2023-09-08 07:26] LABS: Basophils # (auto) 0.02 K/uL (0.00-0.20); Basophils % (auto) 0.4 %; Eosinophils # (auto) 0.12 K/uL (0.00-0.50); Eosinophils % (auto) 2.2 %; Hematocrit (blood only) 30.9 % (42.0-52.0); Hemoglobin 9.8 g/dl (14.0-18.0); Immature Granulocytes # (auto) 0.02 K/uL (0.01-0.20); Immature Granulocytes % (auto) 0.4 %; Lymphocytes # (auto) 2.65 K/uL (1.20-3.40); Lymphocytes % (auto) 48.9 %; Mean Corpuscular Hemoglobin 27.8 pg (25.0-34.0); Mean Corpuscular Hgb Conc 31.7 g/dL (32.0-36.0); Mean Corpuscular Volume 87.5 fL (80.0-100.0); Mean Platelet Volume 9.3 fL (9.4-12.4); Monocytes # (auto) 0.85 K/uL (0.11-0.59); Monocytes % (auto) 15.7 %; Neutrophils # (auto) 1.76 K/uL (1.40-6.50); Neutrophils % (auto) 32.4 %; Platelet Count 170 K/uL (130-400); RDW Coefficient of Variation 25.6 % (11.5-14.5); RDW Standard Deviation 78.4 fL (36.4-46.3); Red Blood Count 3.53 M/uL (4.70-6.10); White Blood Count 5.42 K/ul (4.8-10.8)
[2023-09-08 08:00] LABS: Anisocytosis Present; Poikilocytosis Present
--- NOTE | 2023-09-08 08:03 | Hospitalist Progress Note ---
Date of Service September 08, 2023 Assessment & Plan (1) Urinary tract infection: Plan: Sepsis present on admission due to UTI. Hypotension resolved with IVF overnight. UA abnormal -continue IV ceftriaxone, follow urine and blood cultures -hematuria - related to UTI and or gunn trauma - obtained CT-KUB - no obstructing stones, nephrolithiasis and renal cysts unchanged, large heterogeneous prostate and thick walled bladder -check PSA -urology outpatient follow up -generalized weakness - PT/OT -CXR reviewed - small bilateral pleural effusions, no focal opacities. PCT negative 09/06. No hypoxia. Pneumonia unlikely. On abdominal CT no pleural effusions, rather, bibasilar scarring Plan Recent diagnosis of esophageal adenocarcinoma just completed chemotherapy, radiation treatment. Is tolerating a soft diet at this time but has a J-tube in place for ongoing tube feed supplementation. 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 Ex tobacco abuse he quit smoking approximately 3 to 4 weeks ago with the chemotherapy he states that he lost his desire to smoke after chemotherapy. Extensive history of coronary artery disease status post multiple PCI with stenting x 9 per the medical record - admission EKGs reassuring, troponin 8, 13 -ASA held, hematuria Anemia of chronic disease-stable 10.9 g/dL hemoglobin DVT ppx - ordered enoxaparin, held because of hematuria. cont SCDs Updated son and at bedside 09/07 Admission and Anticipated Discharge Date Admission Date: September 07, 2023 Subjective feels much better, stronger, having hematuria in gunn bag since this am son describes symptomatic UTI -was having increased incontinence, frequency, voiding small amounts prior to admission Physical Exam 2 Physical Exam: PHYSICAL EXAMINATION Last 24h vital signs reviewed, see documentation in flowsheet General: comfortable appearing, no distress HEENT: Left jaw deformity, pupils round and equal, sclerae anicteric, no conjunctival injection, moist mucus membranes Lungs: Normal respiratory effort. Clear to auscultation bilaterally. No RRW Heart: Regular rate and rhythm, no murmurs. No JVD Abdomen: Soft, nontender, nondistended. Bowel sounds present. J tube L side of abdomen : dark red transparent urine in gunn, no significant clots, small amount of debris in tubing Extremities: Warm, dry, well-perfused. No extremity edema. Neuro: Alert and oriented x 4, face symmetric, moves 4 extremities well Psych: Normal affect and behavior Results & Data Results & Data Vital Signs (Past 12 Hours) Vital Signs Temp Pulse Pulse Resp BP BP Pulse Ox 09/07/23 22:46 36.2 C L 79 18 127/81 99 09/07/23 22:45 09/07/23 22:01 79 97 09/07/23 22:00 125/75 09/07/23 21:59 89 14 97 09/07/23 21:30 80 24 138/82 100 09/07/23 21:00 78 15 128/79 99 09/07/23 20:30 85 16 103/70 99 09/07/23 20:00 86 15 94/62 L 99 Pulse Ox O2 Del Method O2 Del Method 09/07/23 22:46 Room Air 09/07/23 22:45 99 Room Air 09/07/23 22:01 09/07/23 22:00 09/07/23 21:59 Room Air 09/07/23 21:30 Room Air 09/07/23 21:00 Room Air 09/07/23 20:30 Room Air 09/07/23 20:00 Room Air Laboratory Results 09/08/23 06:47 PG Care Time/CCT Total # of Minutes Spent Total Time Spent with Patient: Total time spent is greater than 50% in coordination of care (as documented) at patient's floor/unit and/or counseling patient: Coding Level of Care Code 05543 SUB INP/OBS CARE 3/50MIN Diagnoses Urinary tract infection N39.0
[2023-09-08] MEDS: ASPIRIN 81 MG ECTAB PO SCH (08:10)
[2023-09-08] MEDS: PANTOprazole 40 MG TAB PO SCH (08:10)
[2023-09-08 08:13] LABS: Albumin Globulin Ratio 1.3 (0.9-2); Albumin Level 2.7 gm/dl (3.4-5.0); BUN Creatinine Ratio 15.1 (10-20); Bilirubin,Total 0.3 mg/dl (0.2-1.0); Calcium 7.7 mg/dl (8.6-10.3); Creatinine Clr Calc Pharmacy 83.3 ml/min; Est GFR (African American) 104.4 ml/min; Est GFR (Non-African American) 90.1 ml/min; Globulin 2.1 gm/dl (2.5-4.0); Magnesium 1.8 mg/dl (1.7-2.4); Total Protein 4.8 gm/dl (6.0-8.3)
--- NOTE | 2023-09-08 09:43 | CT Scan Report ---
CT SCAN OF THE ABDOMEN AND PELVIS WITHOUT IV CONTRAST CLINICAL HISTORY: Gross hematuria. Urinary tract infection. Sepsis. COMPARISON STUDY: Abdominal CT dated 04/09/2023. TECHNIQUE: CT scan of the abdomen and pelvis is performed from the lung bases to the proximal femora. Images are reviewed in the axial, sagittal, and coronal planes. IV contrast was not administered for this examination. A dose lowering technique was utilized adhering to the principles of ALARA. CT DOSE: 853.64 mGy.cm FINDINGS: Lung bases: The heart is enlarged and without pericardial effusion. There are coronary artery calcifi cations. Subpleural reticulation with chronic interstitial/fibrotic change and parenchymal scarring i s seen at both lung bases. No airspace consolidation or pleural effusion is identified. A fat-contain ing Bochdalek hernia is noted on the right. The distal esophagus appears circumferentially thick wall ed. There is a moderate to large hiatal hernia. Liver: The unenhanced liver is normal in size, contour, and attenuation. There is no intrahepatic rod iary ductal dilatation. Gallbladder: The gallbladder is not distended. The wall appears thickened with mild pericholecystic i nfiltration. Spleen: Normal in size and attenuation. Pancreas: The unenhanced pancreas is grossly unremarkable. Adrenal glands: There is nodular thickening of the adrenal glands. Kidneys: The unenhanced kidneys are normal in size and without hydronephrosis. A a 4 mm cortical calc ification versus calcification within a calyceal diverticulum in the left lower kidney seen on image #136 is unchanged. No additional renal calcifications are identified and there is no ureteral stone. Simple and complex bilateral renal cysts are similar to previous and measure up to 2.9 cm. Abdominal vasculature: There is advanced of a sclerotic calcification and ectasia of the abdominal ao rta. Bowel: A percutaneous gastrostomy tube is in place. There is moderate colonic diverticulosis without CT evidence of acute diverticulitis. There is postoperative change from right colon resection. No bow el obstruction is seen. Peritoneum: There is no intraperitoneal free air or abdominal ascites. A midline surgical scar is not ed. A fat-containing ventral hernia is seen in the upper abdomen. Lymphadenopathy: None. Pelvic viscera: The prostate gland is enlarged and heterogeneous. The bladder is partially decompress ed and a Britton catheter. There are foci of intraluminal gas. The bladder wall is markedly thickened w ith surrounding inflammation. Skeletal structures: The skeletal structures are osteopenic. Mild to moderate lumbosacral spondylosis is observed. Sclerotic change is noted in the sacroiliac joints. No lytic or blastic lesions are see n. IMPRESSION: 1. There is evidence of cystitis. Correlate with clinical findings and urinalysis. 2. There is a moderate to large hiatal hernia, and the partially visualized distal esophagus appears circumferentially thick walled. Correlate clinically for evidence of esophagitis. If warranted this c ould be further assessed with endoscopy. 3. Cardiomegaly with chronic interstitial/fibrotic change at the lung bases. 4. The gallbladder is not distended, and the wall appears thickened with mild surrounding infiltratio n. This is of indeterminate significance. Correlate with clinical an laboratory findings. If warrante d this could be further assessed with a right upper quadrant ultrasound. 5. Colonic diverticulosis without CT evidence of acute diverticulitis. 6. Additional findings as above. ACT 112: Negative or not required by law. Electronically signed by: Houston Wiseman M.D. 09/08/2023 9:41 AM
[2023-09-08] MEDS: cefTRIAXone SODIUM 2,000 MG/50 ML BAG IV SCH (17:12)
[2023-09-08] MEDS: NUTREN LIQD 2.0 1,000 ML BAG PEG SCH (19:41)
[2023-09-08] MEDS: TAMSULOSIN HCL 0.4 MG CAP PO SCH (19:42)
[2023-09-08] MEDS: ROSUVASTATIN CALCIUM 10 MG TAB PO SCH (19:42)
[2023-09-08] MEDS: TUBE FEEDING WATER FLUSH GT SCH (22:07)
[2023-09-09 06:54] LABS: BUN Creatinine Ratio 13.9 (10-20); Calcium 7.8 mg/dl (8.6-10.3); Creatinine Clr Calc Pharmacy 84.4 ml/min; Est GFR (Non-African American) 90.6 ml/min; Potassium 3.7 mmol/L (3.5-5.1)
--- NOTE | 2023-09-09 17:54 | Hospitalist Progress Note ---
Date of Service September 09, 2023 Assessment & Plan (1) Urinary tract infection: Plan: Sepsis present on admission due to UTI. Hypotension resolved with IVF overnight. UA abnormal -continue IV ceftriaxone for now, urine culture skin kemar and blood cultures pending NGTD 24h -hematuria - related to UTI and or gunn trauma - obtained CT-KUB - no obstructing stones, nephrolithiasis and renal cysts unchanged, large heterogeneous prostate and thick walled bladder -check PSA - normal -urology outpatient follow up referral made for enlarged prostate and chronic bladder wall thickening, hematuria, renal cysts, nephrolithiasis -generalized weakness - PT/OT -CXR reviewed - small bilateral pleural effusions, no focal opacities. PCT negative 09/06. No hypoxia. Pneumonia unlikely. On abdominal CT no pleural effusions, rather, bibasilar scarring Plan Recent diagnosis of esophageal adenocarcinoma just completed chemotherapy, radiation treatment. Is tolerating a soft diet at this time but has a J-tube in place for ongoing tube feed supplementation. 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 Ex tobacco abuse he quit smoking approximately 3 to 4 weeks ago with the chemotherapy he states that he lost his desire to smoke after chemotherapy. Extensive history of coronary artery disease status post multiple PCI with stenting x 9 per the medical record - admission EKGs reassuring, troponin 8, 13 -ASA held, hematuria - resume in AM Anemia of chronic disease-stable 10.9 g/dL hemoglobin DVT ppx - ordered enoxaparin, held because of hematuria. cont SCDs Updated son and at bedside 09/07 Admission and Anticipated Discharge Date Admission Date: September 07, 2023 Subjective feeling better, stronger, no dysuria, hematuria resolved Physical Exam 2 Physical Exam: PHYSICAL EXAMINATION Last 24h vital signs reviewed, see documentation in flowsheet General: comfortable appearing, no distress, sitting EOB eating HEENT: Left jaw deformity, pupils round and equal, sclerae anicteric, no conjunctival injection, moist mucus membranes Lungs: Normal respiratory effort. Clear to auscultation bilaterally. No RRW Heart: Regular rate and rhythm, no murmurs. No JVD Abdomen: Soft, nontender, nondistended. Bowel sounds present. J tube L side of abdomen : clear yellow urine in gunn, no clots Extremities: Warm, dry, well-perfused. No extremity edema. Neuro: Alert and oriented x 4, face symmetric, moves 4 extremities well Psych: Normal affect and behavior Results & Data Results & Data Vital Signs (Past 12 Hours) Vital Signs Temp Pulse Resp BP Pulse Ox O2 Del Method 09/09/23 15:01 60 18 130/67 93 Room Air 09/09/23 14:28 36.4 C L 64 18 145/67 H 98 Room Air 09/09/23 08:15 Room Air 09/09/23 07:16 36.6 C 63 18 102/56 L 98 Room Air Laboratory Results 09/08/23 06:47 09/09/23 05:44 PG Care Time/CCT Total # of Minutes Spent Total Time Spent with Patient: Total time spent is greater than 50% in coordination of care (as documented) at patient's floor/unit and/or counseling patient: Coding Level of Care Code 91809 SUB INP/OBS CARE 2/35MIN Diagnoses Urinary tract infection N39.0
[2023-09-09] MEDS ORDERED: bisacodyL 5 MG TABEC PO PRN (17:55)
[2023-09-09] MEDS: POLYETHYLENE (MIRALAX) 17 GM PACK PO SCH (18:11)
[2023-09-09] MEDS: SENNA 8.6 MG TAB PO SCH (19:56)
[2023-09-10 07:01] VITALS: BP 102/55; PULSE 64; RESP 16; TEMP 97.9; O2SAT 95
--- NOTE | 2023-09-10 08:51 | Electrocardiogram Report ---
Test Reason : Blood Pressure : / mmHG Vent. Rate : 084 BPM Atrial Rate : 084 BPM P-R Int : 178 ms QRS Dur : 110 ms QT Int : 414 ms P-R-T Axes : 049 266 059 degrees QTc Int : 489 ms Sinus rhythm with occasional Premature ventricular complexes Right superior axis deviation Septal infarct , age undetermined Abnormal ECG When compared with ECG of 09-APR-2023 14:06, No significant change Confirmed by Dom Gardner ([id number]) on 09/10/2023 8:50:53 AM Referred By: Neftali Lambert Confirmed By:Dom Gardner
--- NOTE | 2023-09-10 11:36 | Electrocardiogram Report ---
Test Reason : Blood Pressure : / mmHG Vent. Rate : 083 BPM Atrial Rate : 083 BPM P-R Int : 192 ms QRS Dur : 118 ms QT Int : 400 ms P-R-T Axes : 054 263 036 degrees QTc Int : 470 ms Sinus rhythm with Premature atrial complexes Right superior axis deviation Non-specific intra-ventricular conduction delay Abnormal ECG When compared with ECG of 07-SEP-2023 19:02, (unconfirmed) Premature ventricular complexes are no longer Present Premature atrial complexes are now Present Criteria for Septal infarct are no longer Present Confirmed by Dom Gardner ([id number]) on 09/10/2023 11:36:38 AM Referred By: Neftali Lambert Confirmed By:Dom Gardner
--- NOTE | 2023-09-10 17:37 | Discharge Summary ---
Date of Service September 10, 2023 Admission HPI Per Admitting Provider This is a pleasant 78-year-old male who has a longstanding history of malignancy. 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 Appr oximately 18 months 2 years ago initially diagnosed with colon adenocarcinoma underwent resection and treatment none approximately 3 to 4 months ago was diagnosed with primary esophageal adenocarcinoma. The patient has just completed recently round of chemotherapy radiation treatment for his primary esophageal adenocarcinoma. He does have a J-tube in place. However over the last couple weeks he has commenced a diet he is eating mostly soft diet with soups macaroni and cheese mashed potatoes etc. he is tolerating that well but currently still supplementing with tube feedings 1 can 4 times a day the family and patient did not remember the name of the specific tube feeding he is using. Today he had increase in his weakness. He was unable to ambulate by himself this evening where earlier this morning he was. He was brought to the ER for further evaluation and treatment. The patient denies any significant pain. Laboratory studies revealed some anemia and relative leukocytosis his white count had been suppressed from the chemo but now is normal at 6. In addition urinalysis was positive for a UTI. Blood cultures were obtained the patient was given IV ceftriaxone and we are called with the patient further evaluation and treatment. Patient had early clinical sepsis on presentation with relative hypotension as low as 81/57 as well as borderline tachycardia at 90 bpm. The patient also received IV fluids for volume resuscitation in the ER. Excepted the patient lactic acid level has subsequently been resulted as within normal limits. Troponin is pending the patient has an extensive cardiac history. EKG was reassuring with multiple PVCs. Magnesium levels been ordered and will be replaced if necessary. Principal Diagnosis Sepsis due to urinary tract infection Discharge Exam PHYSICAL EXAMINATION Last 24h vital signs reviewed, see documentation in flowsheet General: comfortable appearing, no distress, sitting EOB eating HEENT: Left jaw deformity, pupils round and equal, sclerae anicteric, no conjunctival injection, moist mucus membranes Lungs: Normal respiratory effort. Clear to auscultation bilaterally. No RRW Heart: Regular rate and rhythm, no murmurs. No JVD Abdomen: Soft, nontender, nondistended. Bowel sounds present. J tube L side of abdomen : clear yellow urine in ugnn, no clots Extremities: Warm, dry, well-perfused. No extremity edema. Neuro: Alert and oriented x 4, face symmetric, moves 4 extremities well Psych: Normal affect and behavior Discharge Data Allergies Allergy/AdvReac Type Severity Reaction Status Date / Time No Known Allergies Allergy Verified 09/07/23 20:54 Consultations 09/07/23 21:05 ED Decision to Admit Stat Ordered Studies 09/08/23 08:16 CT abd pelvis wo con Urgent Hospital Course (1) Urinary tract infection: Sepsis present on admission due to UTI. Hypotension resolved with IVF overnight. UA abnormal and had suprapubic pain and frequency, increased incontinence -treated with IV ceftriaxone changed to oral cephalosporin complete 7d course, urine culture: mixed/skin kemar and blood cultures pending NGTD at 48h -hematuria - related to UTI and or gunn trauma - obtained CT-KUB - no obstructing stones, nephrolithiasis and renal cysts unchanged, large heterogeneous prostate and thick walled bladder -checked PSA - normal. added flomax. -urology outpatient follow up referral made for enlarged prostate and chronic bladder wall thickening, hematuria, renal cysts, nephrolithiasis -generalized weakness - improved, PT/OT rec home health -CXR reviewed - small bilateral pleural effusions, no focal opacities. PCT negative 09/06. No hypoxia. Pneumonia unlikely. On abdominal CT no pleural effusions, rather, bibasilar scarring Plan Hypertension - BP was low normal in the hospital despite his lisinopril being held the whole time. Sig weight loss / reduced oral intake so BP has normalized. STOPPED lisinopril Recent diagnosis of esophageal adenocarcinoma just completed chemotherapy, radiation treatment. Is tolerating a soft diet at this time but has a J-tube in place for ongoing tube feed supplementation. 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 Ex tobacco abuse he quit smoking approximately 3 to 4 weeks ago with the chemotherapy he states that he lost his desire to smoke after chemotherapy. Extensive history of coronary artery disease status post multiple PCI with stenting x 9 per the medical record - admission EKGs reassuring, troponin 8, 13 -cont ASA Anemia of chronic disease-stable 10.9 g/dL hemoglobin Home with home health, lives with his son who assists Total Time Total Time Spent Total Time Spent (In Minutes): <30 minutes Discharge Plan Discharge Items Patient Disposition: Home - Home Health Services Reason For Visit: UTI, GENERALIZED WEAKNESS Discharge Diagnosis: Urinary tract infection Activity: Resume your previous activity Weightbearing: Full weightbearing Non-emergency contact: Primary Care Provider and Oncologist Call non-emergency contact if: you have any medication questions, your symptoms worsen and you have a fever Follow-up/Referrals: Giovana Arnold CRNP [Primary Care Provider] - 09/13/23 10:20 am Diet: Regular Diet Comment: easy to chew Addtl Attending Provider Instructions: You were treated for urinary tract infection Take antibiotics through /6 Take tamsulosin (flomax) at bedtime to shrink your prostate STOP lisinopril - your blood pressure has been low normal in the hospital w ithout it. BP often goes down with cancer/cancer treatment because of weight loss and less oral intake. This medication could be making your BP too low, contributing to weakness. It can be restarted in the future if your BP rises You should follow up with a urologist for bladder wall thickening, blood in urine, enlarged prostate, kidney cysts Follow up with your oncologist as scheduled Home health physical therapy and occupational therapy is recommended Pending Studies at Discharge: No Stand-Alone Forms: My [facility] Mr Banana, Smoking Cessation Medications and DC Order Prescriptions: New tamsulosin 0.4 mg Capsule 0.4 mg PO HS Qty: 30 0RF cefadroxil 1 gram tablet 1,000 mg PO BID Qty: 7 0RF Continued rosuvastatin 10 mg tablet 10 mg PO HS pantoprazole [Protonix] 40 mg tablet,delayed release (DR/EC) 40 mg PO BID Qty: 60 0RF aspirin 81 mg Tablet,Delayed Release (Dr/Ec) 81 mg PO QAM cholecalciferol (vitamin D3) [Vitamin D3] 50 mcg (2,000 unit) Capsule 50 mcg PO QAM Discontinued lisinopril 20 mg tablet 10 mg PO QAM Discharge Orders: Discharge Order (Routine); Ordered 09/10/23 Ordered By: Janae Zheng Admission Data Admit Date/Time: 09/07/23 21:03 Attending Provider: Janae Zheng Admit Provider: Braulio Madden Primary Care Provider: Giovana Arnold Other Providers: Neftali Lambert Other Interventions: Discharge Summary Assessment (RN) Last Done: 09/10/23 10:56 Coding Level of Care Code 64038 IN/OBS DISCH 30 MIN/LESS Diagnoses Urinary tract infection N39.0
== END 2023-09-10 12:42 | disposition home health service (06) | DRG 872 ==
LOC: ED 18:46 → 3N 21:03 → SUATTDRO 21:03 → 3N 22:24

== ENCOUNTER 2023-10-10 03:23 | Observation (INO) ==
--- NOTE | 2023-10-10 03:42 | Emergency Department Note ---
Impression & Plan Generalized weakness, Syncope and collapse, Elevated brain natriuretic peptide (BNP) level ED Provider Note HISTORY OF PRESENT ILLNESS: Patient is a 78-year-old male presenting after syncopal episode. Patient reports he was walking into the bathroom this morning on the next thing he knew he was down on the ground. reports she heard a thud and went into the room to evaluate and found the patient leaning against the wall and minimally responsive. Her son was able to assist the patient onto the commode, but reports that the patient still seemed very out of it and they called 911. He is not on any anticoagulation. Patient is unsure of the events leading up to him getting to the hospital. He denies any chest pain or shortness of breath on arrival. Denies any headache or changes in vision on arrival. ROS: as above PHYSICAL EXAM: Constitutional: Patient appears in no acute distress. HENT: Head: Normocephalic and atraumatic. Eyes: EOMI, PERRL Ears: TM intact without erythema or bulging. External canals without erythema or discharge. Noted to have some dried blood to the periauricular region, but no obvious laceration. Mouth/Throat: Mucous membranes moist. Neck: Trachea midline. Neck supple. Cardiovascular: RRR, No murmurs, rubs or gallops. Intact distal pulses. Pulmonary/Chest: No respiratory distress. Breath sounds clear and equal bilaterally. No wheezes or rales. Abdominal: Abdomen soft, no tenderness, rebound or guarding. Musculoskeletal: No edema, tenderness or deformity noted. Skin: Warm and dry. No rash, erythema, pallor or cyanosis Psychiatric: Appropriate mood and affect for situation. Neurological: Alert and keenly responsive. CN II-XII grossly intact, moving all extremities equally and fully. MDM: - Vitals signs stable. - History obtained via patient. History as above. - Chronic conditions affecting care: CAD (s/p PCI); hx of GI bleed; HTN; HLD; colon cancer; interstitial lung disease; oral cancer; GERD - Differential diagnoses include, but are not limited to: dysrhythmia; ACS; pneumonia; PE; CVA; intracranial hemorrhage - Order placed for continuous cardiac monitoring. At this time, monitor showed rate of 75 bpm with normal sinus rhythm, per my interpretation. - External medical records reviewed. Discharge summary dated 09/10/2023 was reviewed. Patient was admitted at that time for sepsis secondary to a urinary tract infection. - EKG interpreted by myself showed normal sinus rhythm. Rate 69 bpm. Prolonged QT at 454. No acute ischemic changes. - Laboratory workup interpreted by myself showed normal WBC; chronic anemia (Hgb 10.3); normal PT/INR; stable electrolytes other than hypocalcemia; normal troponin; elevated BNP (245); normal lipase; elevated TSH - CXR negative for pneumonia, per my interpretation - CT head wo contrast negative for acute pathology - Unclear etiology for patient's syncopal episode. However, he did have a prolonged QT on his EKG and his history for his presenting syncopal episode is concerning. Will admit for formal cardiac workup. - Orthostatic vitals were attempted, but patient was too weak to stand up from the seated position. - Discussion was had with adult protective caseworker about patient's case and need for admission - Hospitalist consulted for admission - [facility] for further evaluation and management. ASSESSMENT AND PLAN: Diagnosis: generalized weakness; syncope and collapse; elevated BNP Plan: admit Past Med/Surg History Problem List (Updated 10/10/23 @ 06:34 by Wilda Fox MD) Elevated brain natriuretic peptide (BNP) level (Acute) Syncope and collapse (Acute) Generalized weakness (Acute) Acute UTI (Acute) Cigarette smoker Esophageal cancer (Chronic 04/12/23) Encounter for pre-operative examination Constipation Melena Colon adenocarcinoma Anemia (Acute) Abdominal pain (Acute) Acute upper gastrointestinal bleeding (Acute) Pressure ulcer of left buttock, stage 2 (Acute) resolved Past heart attack Acute blood loss anemia 04/2023 Medical History (Updated 10/10/23 @ 06:34 by Wilda Fox MD) CAD (coronary artery disease) 2009- stent(s) ~2020 ([facility])- 2 stents Multiple caths/stents including the above noted, Total of 9 stents per spouse History of upper gastrointestinal bleeding 04/2023 Hyperlipidemia Hypertension Hx of myocardial infarction 2009 Follows with [facility] cardiology Hx of esophageal malignancy 04/2023, no tx as of 06/2023 History of colon cancer Dx 2022 > colon resection Interstitial lung disease Chronic cough Psoriasis GERD (gastroesophageal reflux disease) 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), 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 Surgical History (Updated 06/18/23 @ 11:11 by Cindy Rocha, EVA) Encounter for PEG (percutaneous endoscopic gastrostomy) (06/17/23) p Insertion Access Port Left Subclavian with Fluoroscopy(Left) - Ritchie Orozco, s Esophagogastroduodenoscopy with Insertion of Gastrostomy Tube(Not Applicable) - Ritchie Orozco DO Port-A-Cath in place (06/17/23) p Insertion Access Port Left Subclavian with Fluoroscopy(Left) - Ritchie Orozco DO s Esophagogastroduodenoscopy with Insertion of Gastrostomy Tube(Not Applicable) - Ritchie Orozco, DO History of esophagogastroduodenoscopy (EGD) Hx of colonoscopy History of nasal surgery Summer 2022 (jaw/nasal surgery) History of cardiac cath 2009- stent(s) ~2020 ([facility])- 2 stents 2022 Multiple caths/stents including the above noted, Total of 9 stents per spouse History of colon resection Hx of oral surgery Jaw surgery 2012 (r/t cancer) Status post aortic coarctation stent placement 10+ years ago Family History (Updated 06/23/23 @ 13:23 by Luz Elena Martinez RN) Sister Diabetes Sister Cancer Breast Brother Cancer Lung Brother Cancer Colon Social History (Updated 06/23/23 @ 13:25 by Luz Elena Martinez RN) Smoking Status: Never smoker Tobacco Type: Pipe Second Hand Exposure: No; Do You Dip or Chew Tobacco: No; Hx Alcohol Use: Yes Alcohol type: hard liquor Hx Substance Use: No Preferred Language: Sinhala Communication Ability: Effective Visual Impairment: Partially Limited Hearing Ability: Normal Director Counseling Bureau Required: No Beliefs That Will Affect Care: None marital status: Married2 Current Living Situation: Family current occupational status: disabled Feels Safe at Home: Yes Diet Comment: soft foods during the past year weight has: decreased > 10 lbs Assistive Devices: Cane, Glasses and Walker Allergies Allergies Allergy/AdvReac Type Severity Reaction Status Date / Time No Known Allergies Allergy Verified 09/07/23 20:54 Home Meds Home Medications Medication Instructions Recorded Confirmed rosuvastatin 10 mg tablet 10 mg PO HS 04/09/23 10/10/23 aspirin 81 mg tablet,delayed 81 mg PO QAM 09/07/23 10/10/23 release cholecalciferol (vitamin D3) 50 50 mcg PO QAM 09/07/23 10/10/23 mcg (2,000 unit) capsule (Vitamin D3) Previous Rx's Medication Instructions Recorded pantoprazole 40 mg tablet,delayed 40 mg PO BID #60 tabs 04/13/23 release (Protonix) cefadroxil 1 gram tablet 1,000 mg PO BID #7 tabs 09/10/23 tamsulosin 0.4 mg capsule 0.4 mg PO HS #30 caps 09/10/23 Results & Data (ED) Vital Signs Vital Signs - 24 hr 10/10/23 03:25 10/10/23 03:34 10/10/23 03:34 Temperature 36.0 C L Temperature Source Oral Pulse Rate - Lying Pulse Rate - Sitting Pulse Rate 74 67 Pulse Rate [Radial] Respiratory Rate 16 Respiratory Effort / Characteristics Non-Labored Spontaneous Respiratory Depth Normal Respiratory Pattern Regular Blood Pressure - Lying Blood Pressure - Sitting Blood Pressure 133/73 Blood Pressure [Left Arm] Blood Pressure Mean 93 Blood Pressure Mean [Left Arm] Pulse Oximetry 98 97 Oxygen Delivery Method Room Air Room Air Sepsis Recent Fever Within 48 Hours No Sepsis New/Unexplained Change in Mental Status No Sepsis Action Taken by Nursing No Action Required 10/10/23 05:14 10/10/23 06:10 Temperature Temperature Source Pulse Rate - Lying 59 L Pulse Rate - Sitting 62 Pulse Rate Pulse Rate [Radial] 66 Respiratory Rate 17 Respiratory Effort / Characteristics Non-Labored Spontaneous Respiratory Depth Normal Respiratory Pattern Regular Blood Pressure - Lying 135/72 Blood Pressure - Sitting 135/75 Blood Pressure Blood Pressure [Left Arm] 120/67 Blood Pressure Mean Blood Pressure Mean [Left Arm] 84 Pulse Oximetry 97 Oxygen Delivery Method Room Air Sepsis Recent Fever Within 48 Hours Sepsis New/Unexplained Change in Mental Status Sepsis Action Taken by Nursing Laboratory Data 10/10/23 03:28 10/10/23 03:28 Lab Results 10/10/23 10/10/23 Range/Units 03:28 03:28 WBC 5.73 (4.8-10.8) K/ul RBC 3.30 L (4.70-6.10) M/uL Hgb 10.3 L (14.0-18.0) g/dl Hct 31.5 L (42.0-52.0) % MCV 95.5 (80.0-100.0) fL MCH 31.2 (25.0-34.0) pg MCHC 32.7 (32.0-36.0) g/dL RDW Std Deviation 66.3 H (36.4-46.3) fL RDW Coeff of Monet 19.0 H (11.5-14.5) % Plt Count 201 (130-400) K/uL MPV 9.1 L (9.4-12.4) fL Immature Gran % (Auto) 0.2 % Neut % (Auto) 30.8 % Lymph % (Auto) 51.8 % [place] % (Auto) 13.6 % Eos % (Auto) 3.3 % Baso % (Auto) 0.3 % Neut # (Auto) 1.76 (1.40-6.50) K/uL Lymph # (Auto) 2.97 (1.20-3.40) K/uL [place] # (Auto) 0.78 H (0.11-0.59) K/uL Eos # (Auto) 0.19 (0.00-0.50) K/uL Baso # (Auto) 0.02 (0.00-0.20) K/uL Immature Gran # (Auto) 0.01 (0.01-0.20) K/uL PT 10.9 (9.0-12.0) Seconds INR 1.0 (0.9-1.1) Sodium 139 (136-145) mmol/L Potassium 3.5 (3.5-5.1) mmol/L Chloride 109 H (98-107) mmol/L Carbon Dioxide 23 (21-32) mmol/L Anion Gap 7 (3-11) BUN 11 (6-23) mg/dl Creatinine 0.70 (0.6-1.4) mg/dl Est Cr Clr Drug Dosing 89.8 ml/min Est GFR ( Amer) 106.2 ml/min Est GFR (Non-Af Amer) 91.7 ml/min BUN/Creatinine Ratio 15.7 (10-20) Glucose 100 H (70-99(Fasting)) mg/dl Calcium 8.4 L (8.6-10.3) mg/dl Magnesium 1.9 (1.7-2.4) mg/dl Total Bilirubin 0.6 (0.2-1.0) mg/dl AST 21 (13-39) U/L ALT 10 (7-52) U/L Alkaline Phosphatase 50 (34-104) U/L Troponin I High Sens 13.9 Cancelled (0-20) pg/ml B-Natriuretic Peptide 245 H (0-100) pg/ml Total Protein 5.9 L (6.0-8.3) gm/dl Albumin 3.2 L (3.4-5.0) gm/dl Globulin 2.7 (2.5-4.0) gm/dl Albumin/Globulin Ratio 1.2 (0.9-2) Lipase 22 (11-82) U/L TSH 5.761 H (0.300-4.500) uIu/ml Free T4 0.86 (0.61-1.60) ng/dl Imaging Data Radiologist's Impression: Head CT 10/10/23 03:39 Exam(s): CT HEAD Without Contrast EXAM: CT Head Without Intravenous Contrast CLINICAL HISTORY: Reason for exam: syncope. TECHNIQUE: Axial computed tomography images of the head/brain without intravenous contrast. CTDI is 34.62 mGy and DLP is 624.41 mGy-cm. Automated exposure control was utilized for the study. A dose lowering technique was utilized adhering to the principles of ALARA. COMPARISON: No relevant prior studies available. 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 No hemorrhage. Ventricles: Unremarkable. No ventriculomegaly. Bones/joints: Unremarkable. No acute fracture. Soft tissues: Unremarkable. Sinuses: Unremarkable as visualized. No acute sinusitis. Mastoid air cells: Unremarkable as visualized. No mastoid effusion. IMPRESSION: No acute intracranial abnormality Electronically signed by: Denton Kincaid MD 10/10/23 05:10 AM Discharge Plan Visit Data Chief Complaint: Syncope Stated Complaint: Syncope, Fall ED Provider: Wilda Fox Discharge Problem: Generalized weakness, Syncope and collapse, Elevated brain natriuretic peptide (BNP) level Forms Stand Alone Forms: My [facility] Prescriptions Prescriptions: No Action rosuvastatin 10 mg tablet 10 mg PO HS pantoprazole [Protonix] 40 mg tablet,delayed release (DR/EC) 40 mg PO BID Qty: 60 0RF aspirin 81 mg Tablet,Delayed Release (Dr/Ec) 81 mg PO QAM cholecalciferol (vitamin D3) [Vitamin D3] 50 mcg (2,000 unit) Capsule 50 mcg PO QAM tamsulosin 0.4 mg Capsule 0.4 mg PO HS Qty: 30 0RF cefadroxil 1 gram tablet 1,000 mg PO BID Qty: 7 0RF Referrals Referrals: Giovana Arnold CRNP [Primary Care Provider] -
[2023-10-10 03:46] LABS: Hematocrit (blood only) 31.5 % (42.0-52.0); Hemoglobin 10.3 g/dl (14.0-18.0); Mean Corpuscular Hemoglobin 31.2 pg (25.0-34.0); Mean Corpuscular Hgb Conc 32.7 g/dL (32.0-36.0); Mean Corpuscular Volume 95.5 fL (80.0-100.0); Mean Platelet Volume 9.1 fL (9.4-12.4); Platelet Count 201 K/uL (130-400); RDW Standard Deviation 66.3 fL (36.4-46.3); White Blood Count 5.73 K/ul (4.8-10.8)
[2023-10-10 04:07] LABS: Albumin Globulin Ratio 1.2 (0.9-2); Albumin Level 3.2 gm/dl (3.4-5.0); BUN Creatinine Ratio 15.7 (10-20); Bilirubin,Total 0.6 mg/dl (0.2-1.0); Calcium 8.4 mg/dl (8.6-10.3); Creatinine Clr Calc Pharmacy 89.8 ml/min; Est GFR (African American) 106.2 ml/min; Est GFR (Non-African American) 91.7 ml/min; Globulin 2.7 gm/dl (2.5-4.0); Magnesium 1.9 mg/dl (1.7-2.4); Potassium 3.5 mmol/L (3.5-5.1); Total Protein 5.9 gm/dl (6.0-8.3)
[2023-10-10 04:13] LABS: Troponin I High Sensitivity 13.9 pg/ml (0-20)
[2023-10-10 04:19] LABS: Prothrombin Time 10.9 Seconds (9.0-12.0)
[2023-10-10 04:22] LABS: Thyroid Stimulating Hormone 5.761 uIu/ml (0.300-4.500)
[2023-10-10 04:49] LABS: Basophils # (auto) 0.02 K/uL (0.00-0.20); Basophils % (auto) 0.3 %; Eosinophils # (auto) 0.19 K/uL (0.00-0.50); Eosinophils % (auto) 3.3 %; Immature Granulocytes # (auto) 0.01 K/uL (0.01-0.20); Immature Granulocytes % (auto) 0.2 %; Lymphocytes # (auto) 2.97 K/uL (1.20-3.40); Lymphocytes % (auto) 51.8 %; Monocytes # (auto) 0.78 K/uL (0.11-0.59); Monocytes % (auto) 13.6 %; Neutrophils # (auto) 1.76 K/uL (1.40-6.50); Neutrophils % (auto) 30.8 %
[2023-10-10 04:58] LABS: T4 Free Thyroxine 0.86 ng/dl (0.61-1.60)
--- NOTE | 2023-10-10 05:11 | CT Scan Report ---
Exam(s): CT HEAD Without Contrast EXAM: CT Head Without Intravenous Contrast CLINICAL HISTORY: Reason for exam: syncope. TECHNIQUE: Axial computed tomography images of the head/brain without intravenous contrast. CTDI is 34.62 mGy and DLP is 624.41 mGy-cm. Automated exposure control was utilized for the study. A dose lowering technique was utilized adhering to the principles of ALARA. COMPARISON: No relevant prior studies available. 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 No hemorrhage. Ventricles: Unremarkable. No ventriculomegaly. Bones/joints: Unremarkable. No acute fracture. Soft tissues: Unremarkable. Sinuses: Unremarkable as visualized. No acute sinusitis. Mastoid air cells: Unremarkable as visualized. No mastoid effusion. IMPRESSION: No acute intracranial abnormality Electronically signed by: Denton Kincaid MD 10/10/23 05:10 AM
--- NOTE | 2023-10-10 06:56 | History & Physical Report ---
Date of Service October 10, 2023 Assessment & Plan (1) Syncope and collapse: (2) Generalized weakness: (3) Acute UTI: (4) Esophageal cancer: (5) Colon adenocarcinoma: (6) Hx of myocardial infarction: (7) CAD (coronary artery disease): (8) Hyperlipidemia: (9) Hypertension: (10) Elevated brain natriuretic peptide (BNP) level: Plan Syncope and collapse- Occurred after being awoken from sleep at 3:00 this morning by the need to urinate, and occurred before he made it to the bathroom. He denied any focal weakness in arms or legs, difficulty with speech, loss of bowel or bladder control. He was disoriented and did not respond to his for about a minute after being found. CT scan of head without contrast negative This does not sound like a TIA or CVA The patient will be admitted to telemetry for serial cardiac enzymes, serial EKG's, cardiac rhythm monitoring and a 2-D echocardiogram with Dopplers. Recent admission from 09/06-09/09/2023 for urinary tract infection, and antibiotic totality of 10 days, brings concerns regarding possible recurrent or incompletely treated UTI Urinary tract infection/BPH with LUTS- Still needs to give a specimen Follow urine culture and sensitivity Ceftriaxone 2 g IV daily NSS + KCl 20 mill equivalents at 80 mL/h x 1 L His reports that his urine flow has been improved since he was started on tamsulosin at last admission, and will continue CAD/hypertension/history of ID- Aspirin, rosuvastatin Admitted to monitored bed as noted above Esophageal cancer/GERD- Continue pantoprazole 40 mg p.o. twice daily History of Present Illness Chief Complaint: The patient presents to the emergency department with complaint of a syncopal episode that occurred about 3:00 this morning, as he was walking to the bathroom, after having been woke up from sleep by the need to urinate. He did not make it into the bathroom completely, and his and son helped him up onto the commode at that time. He was confused for about 1 minute, per his . He did not have loss of bowel or bladder control. He did not have focal weakness in arms or legs. He did not have any more difficulty with swallowing or speaking than usual. Primary Care Provider: ROOPA Tamez The patient is a 78-year-old male with a past medical history including esophageal cancer diagnosed on 04/12/2023, recent admission for urinary tract infection from 09/06-09/09/2023, and completed a prescription for cefadroxil 7 days post discharge, colon adenocarcinoma, history of acute upper GI bleeding, history of left buttock stage II pressure ulcer, and history of acute blood loss anemia. The patient presented to the emergency department with a syncopal episode as noted above, of approximately 1 minute duration, that occurred without warning, and without previous occurrence. Allergies Allergy/AdvReac Type Severity Reaction Status Date / Time No Known Allergies Allergy Verified 09/07/23 20:54 Home Medications Medication Instructions Recorded Confirmed Type rosuvastatin 10 mg tablet 10 mg PO HS 04/09/23 10/10/23 History pantoprazole 40 mg tablet,delayed 40 mg PO BID #60 tabs 04/13/23 10/10/23 Rx release (Protonix) aspirin 81 mg tablet,delayed 81 mg PO QAM 09/07/23 10/10/23 History release cholecalciferol (vitamin D3) 50 50 mcg PO QAM 09/07/23 10/10/23 History mcg (2,000 unit) capsule (Vitamin D3) cefadroxil 1 gram tablet 1,000 mg PO BID #7 tabs 09/10/23 10/10/23 Rx tamsulosin 0.4 mg capsule 0.4 mg PO HS #30 caps 09/10/23 10/10/23 Rx Past Med/Surg History Problem List (Updated 10/10/23 @ 06:50 by Neftali Lambert MD) Hx of myocardial infarction 2009 Follows with [facility] cardiology CAD (coronary artery disease) 2009- stent(s) ~2020 ([facility])- 2 stents Multiple caths/stents including the above noted, Total of 9 stents per spouse Hyperlipidemia Hypertension Elevated brain natriuretic peptide (BNP) level (Acute) Syncope and collapse (Acute) Generalized weakness (Acute) Acute UTI (Acute) Cigarette smoker Esophageal cancer (Chronic 04/12/23) Encounter for pre-operative examination Constipation Melena Colon adenocarcinoma Anemia (Acute) Abdominal pain (Acute) Acute upper gastrointestinal bleeding (Acute) Pressure ulcer of left buttock, stage 2 (Acute) resolved Past heart attack Acute blood loss anemia 04/2023 Medical History (Updated 10/10/23 @ 06:50 by Neftali Lambert MD) History of upper gastrointestinal bleeding 04/2023 Hx of esophageal malignancy 04/2023, no tx as of 06/2023 History of colon cancer Dx 2022 > colon resection Interstitial lung disease Chronic cough Psoriasis GERD (gastroesophageal reflux disease) 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), 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 Surgical History (Updated 06/18/23 @ 11:11 by Cindy Rocha, EVA) Encounter for PEG (percutaneous endoscopic gastrostomy) (06/17/23) p Insertion Access Port Left Subclavian with Fluoroscopy(Left) - Ritchie Orozco, DO s Esophagogastroduodenoscopy with Insertion of Gastrostomy Tube(Not Applicable) - Ritchie Orozco DO Port-A-Cath in place (06/17/23) p Insertion Access Port Left Subclavian with Fluoroscopy(Left) - Ritchie Orozco, s Esophagogastroduodenoscopy with Insertion of Gastrostomy Tube(Not Applicable) - Ritchie Orozco, DO History of esophagogastroduodenoscopy (EGD) Hx of colonoscopy History of nasal surgery Summer 2022 (jaw/nasal surgery) History of cardiac cath 2009- stent(s) ~2020 ([facility])- 2 stents 2022 Multiple caths/stents including the above noted, Total of 9 stents per spouse History of colon resection Hx of oral surgery Jaw surgery 2012 (r/t cancer) Status post aortic coarctation stent placement 10+ years ago Family History (Updated 06/23/23 @ 13:23 by Luz Elena Martinez RN) Sister Diabetes Sister Cancer Breast Brother Cancer Lung Brother Cancer Colon Social History (Updated 06/23/23 @ 13:25 by Luz Elena Martinez, EVA) Smoking Status: Never smoker Tobacco Type: Pipe Second Hand Exposure: No; Do You Dip or Chew Tobacco: No; Hx Alcohol Use: Yes Alcohol type: hard liquor Hx Substance Use: No Preferred Language: Nepali Communication Ability: Effective Visual Impairment: Partially Limited Hearing Ability: Normal Electronic Repair Troubleshooter Required: No Beliefs That Will Affect Care: None marital status: Married2 Current Living Situation: Family current occupational status: disabled Feels Safe at Home: Yes Diet Comment: soft foods during the past year weight has: decreased > 10 lbs Assistive Devices: Cane, Glasses and Walker Review of Systems Review of Systems: The patient denies chest pain, palpitations, shortness of breath, dyspnea on exertion, cough, lower extremity swelling, sore throat, fevers, chills, sweats, weight change, fatigue, nausea, vomiting, diarrhea , constipation, abdominal pain, pelvic pain, blood in urine or stool, rash, abnormal bruising or bleeding,focal weakness, numbness or tingling in arms or legs, generalized arthralgias or myalgias, back or neck pain, or night sweats. The review of systems is otherwise negative other than for that already noted above, and at least 10 systems have been reviewed. Physical Exam Physical Exam: The patient is awake, alert and oriented 3, well developed and well nourished, normocephalic and atraumatic, lying in bed and in no acute distress. HEENT--PERRL, EOMI, mucous membranes and oropharynx normal Neck--supple. No JVD. No bruits. Thyroid normal, trachea midline, no adenopathy. Heart--normal S1 and S2. No murmurs, rubs or gallops. Lungs--decreased breath sounds throughout. No respiratory distress, no accessory muscle use. Abdomen--normal bowel sounds and soft. Nontender. Nondistended, no hernias or masses, no organomegaly. Extremities--No edema. Dermatologic--normal skin turgor, normal color, no abnormal lymph nodes, no rash. Neurologic--cranial nerves II through XII grossly intact. Rheumatologic--normal range of motion. Psychiatric--normal affect. Results & Data Results & Data Vital Signs (Past 12 Hours) Vital Signs Temp Pulse Pulse Resp BP BP Pulse Ox 10/10/23 05:14 66 17 120/67 97 10/10/23 03:34 67 10/10/23 03:34 97 10/10/23 03:25 36.0 C L 74 16 133/73 98 O2 Del Method 10/10/23 05:14 Room Air 10/10/23 03:34 10/10/23 03:34 Room Air 10/10/23 03:25 Room Air Laboratory Results Laboratory Results WBC 5.73 K/ul (4.8-10.8) 10/10/23 03:28 RBC 3.30 M/uL (4.70-6.10) L 10/10/23 03:28 Hgb 10.3 g/dl (14.0-18.0) L 10/10/23 03:28 Hct 31.5 % (42.0-52.0) L 10/10/23 03: MCV 95.5 fL (80.0-100.0) 10/10/23 03: MCH 31.2 pg (25.0-34.0) 10/10/23 03: MCHC 32.7 g/dL (32.0-36.0) 10/10/23 03: RDW Std Deviation 66.3 fL (36.4-46.3) H 10/10/23 03: RDW Coeff of Monet 19.0 % (11.5-14.5) H 10/10/23 03: Plt Count 201 K/uL (130-400) 10/10/23 03: MPV 9.1 fL (9.4-12.4) L 10/10/23 03: Immature Gran % (Auto) 0.2 % 10/10/23 03:28 Neut % (Auto) 30.8 % 10/10/23 03:28 Lymph % (Auto) 51.8 % 10/10/23 03:28 [place] % (Auto) 13.6 % 10/10/23 03:28 Eos % (Auto) 3.3 % 10/10/23 03:28 Baso % (Auto) 0.3 % 10/10/23 03:28 Neut # (Auto) 1.76 K/uL (1.40-6.50) 10/10/23 03:28 Lymph # (Auto) 2.97 K/uL (1.20-3.40) 10/10/23 03:28 [place] # (Auto) 0.78 K/uL (0.11-0.59) H 10/10/23 03:28 Eos # (Auto) 0.19 K/uL (0.00-0.50) 10/10/23 03:28 Baso # (Auto) 0.02 K/uL (0.00-0.20) 10/10/23 03:28 Immature Gran # (Auto) 0.01 K/uL (0.01-0.20) 10/10/23 03:28 PT 10.9 Seconds (9.0-12.0) 10/10/23 03:28 INR 1.0 (0.9-1.1) 10/10/23 03:28 Sodium 139 mmol/L (136-145) 10/10/23 03:28 Potassium 3.5 mmol/L (3.5-5.1) 10/10/23 03:28 Chloride 109 mmol/L (98-107) H 10/10/23 03:28 Carbon Dioxide 23 mmol/L (21-32) 10/10/23 03:28 Anion Gap 7 (3-11) 10/10/23 03:28 BUN 11 mg/dl (6-23) 10/10/23 03:28 Creatinine 0.70 mg/dl (0.6-1.4) 10/10/23 03:28 Est Cr Clr Drug Dosing 89.8 ml/min 10/10/23 03:28 Est GFR ( Amer) 106.2 ml/min 10/10/23 03:28 Est GFR (Non-Af Amer) 91.7 ml/min 10/10/23 03:28 BUN/Creatinine Ratio 15.7 (10-20) 10/10/23 03:28 Glucose 100 mg/dl (70-99(Fasting)) H 10/10/23 03:28 Calcium 8.4 mg/dl (8.6-10.3) L 10/10/23 03:28 Magnesium 1.9 mg/dl (1.7-2.4) 10/10/23 03:28 Total Bilirubin 0.6 mg/dl (0.2-1.0) 10/10/23 03:28 AST 21 U/L (13-39) 10/10/23 03:28 ALT 10 U/L (7-52) 10/10/23 03:28 Alkaline Phosphatase 50 U/L (34-104) 10/10/23 03:28 Troponin I High Sens 13.9 pg/ml (0-20) 10/10/23 03:28 Troponin I High Sens Cancelled 10/10/23 03:28 B-Natriuretic Peptide 245 pg/ml (0-100) H 10/10/23 03:28 Total Protein 5.9 gm/dl (6.0-8.3) L 10/10/23 03:28 Albumin 3.2 gm/dl (3.4-5.0) L 10/10/23 03:28 Globulin 2.7 gm/dl (2.5-4.0) 10/10/23 03:28 Albumin/Globulin Ratio 1.2 (0.9-2) 10/10/23 03:28 Lipase 22 U/L (11-82) 10/10/23 03:28 TSH 5.761 uIu/ml (0.300-4.500) H 10/10/23 03:28 Free T4 0.86 ng/dl (0.61-1.60) 10/10/23 03:[address] 10/10/23 03:39 Exam(s): CT HEAD Without Contrast EXAM: CT Head Without Intravenous Contrast CLINICAL HISTORY: Reason for exam: syncope. TECHNIQUE: Axial computed tomography images of the head/brain without intravenous contrast. CTDI is 34.62 mGy and DLP is 624.41 mGy-cm. Automated exposure control was utilized for the study. A dose lowering technique was utilized adhering to the principles of ALARA. COMPARISON: No relevant prior studies available. 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 No hemorrhage. Ventricles: Unremarkable. No ventriculomegaly. Bones/joints: Unremarkable. No acute fracture. Soft tissues: Unremarkable. Sinuses: Unremarkable as visualized. No acute sinusitis. Mastoid air cells: Unremarkable as visualized. No mastoid effusion. IMPRESSION: No acute intracranial abnormality Electronically signed by: Denton Kincaid MD 10/10/23 05:10 AM Code Status & VTE Plan Code Status Full code VTE Prophylaxis Plan VTE Prophylaxis will be ordered: Yes PG Care Time/CCT Total # of Minutes Spent Total Time Spent with Patient: Total time spent is greater than 50% in coordination of care (as documented) at patient's floor/unit and/or counseling patient: Coding Level of Care Code 65699 INT INP/OBS CARE 3/75MIN Diagnoses Syncope and collapse R55 Generalized weakness R53.1 Acute UTI N39.0 Malignant neoplasm of lower third of esophagus C15.9 Malignant neoplasm of esophagus location: unspecified location Colon adenocarcinoma C18.9 Hx of myocardial infarction I25.2 CAD (coronary artery disease) I25.10 Hyperlipidemia E78.5 Hypertension I10 Elevated brain natriuretic peptide (BNP) level R79.89 (4) Esophageal cancer Malignant neoplasm of esophagus location: unspecified location Qualified Code(s): C15.9 - Malignant neoplasm of esophagus, unspecified
[2023-10-10 07:21] LABS: Appearance Urine Cloudy (Clear); Bacteria Urine Automated 4+ (None Seen); Bilirubin Urine Negative (Negative); Blood Urine Negative (Negative); Cast Urine Automated 0-2 /lpf (0-2); Color Urine Yellow; Epithelial Cell Urine Auto 0-2 /hpf (0-2); Glucose Urine UA Negative (Negative); Ketones Urine Negative (Negative); Leukocyte Esterase Urine 3+ (Negative); Nitrite Urine Negative (Negative); Protein Urine Negative (Negative); RBC Urine Automated 0-2 /hpf (0-2); Urobilinogen Urine Negative (Negative); WBC Urine Automated >50 /hpf (0-5); pH Urine 6.5 (4.5-7.5)
[2023-10-10] MEDS: cefTRIAXone SODIUM 2,000 MG/50 ML BAG IV STA (08:03)
[2023-10-10] MEDS: NSS + 20MEQ KCL 20 MEQ/1,000 ML BAG IV STA (08:09)
--- NOTE | 2023-10-10 08:22 | XRay Report ---
XR chest 1V portable CLINICAL HISTORY: syncope TECHNIQUE: Single frontal radiograph of the chest was obtained. Comparison: Comparison is made to chest radiograph 09/07/2023 FINDINGS: A port catheter is seen. Cardiomegaly is noted. The aortic arch is calcified. The lungs are clear. No evidence of pleural effusion or pneumothorax. IMPRESSION: No acute chest disease. Cardiomegaly is noted. ACT 112: Negative or not required by law. Electronically signed by: Ricky Hawk M.D. 10/10/2023 8:19 AM
--- NOTE | 2023-10-10 08:56 | XRay Report ---
XR tibia fibula RT 2V CLINICAL HISTORY: hematoma TECHNIQUE: 2 radiographic views of the right leg were obtained. Comparison: None available at the time of this dictation. FINDINGS: There is no evidence of an acute fracture. Joint spaces are well-preserved. Mild soft tissue swelling is seen in the mid leg. IMPRESSION: Soft tissue swelling is seen without evidence of acute bony injury. ACT 112: Negative or not required by law. Electronically signed by: Ricky Hawk M.D. 10/10/2023 8:54 AM
--- NOTE | 2023-10-10 10:09 | Hospitalist Progress Note ---
Date of Service October 10, 2023 Assessment & Plan (1) Syncope and collapse: Plan: Syncope and collapse- Occurred after being awoken from sleep at 3:00 this morning by the need to urinate, and occurred before he made it to the bathroom. Disoriented for 1 minute after that per his . Not consistent with seizure and no stroke-like symptoms. Most likely orthostatic or vasovagal (micturition) syncope -monitor tele -TTE pending -PT eval, orthostatics (2) Acute UTI: Plan: possible UTI though no overt urinary symptoms. underlying BPH with LUTS Last admission August 2023 with urinary retention, hematuria, UTI. CT-KUB negative for obstruction. Flomax started. Britton removed prior to discharge. Urine culture mixed kemar. Blood cultures neg. UA abnormal with +LE +W and +bacteria Given ceftriaxone in ED Urine culture pending (3) Esophageal cancer: Plan: Recent diagnosis of esophageal adenocarcinoma just completed chemotherapy, radiation treatment early this spring. Is tolerating a soft diet at this time but has a J-tube in place for ongoing tube feed supplementation. 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 Ex tobacco abuse he quit smoking approximately 2 mo ago with the chemotherapy he states that he lost his desire to smoke after chemotherapy. Anemia of chronic disease-stable 10.9 g/dL hemoglobin Home with home health, lives with his son who assists Subjective says he is not sure why he fell down however he does get lightheaded on standing from time to time right anterior ribs are sore since the fall about a month ago right anterior yao with a goose egg from this current fall/syncopal episode has not had difficulty voiding since hospital discharge Physical Exam 2 Physical Exam: PHYSICAL EXAMINATION Last 24h vital signs reviewed, see documentation in flowsheet General: comfortable appearing, no distress HEENT: pupils round and equal, sclerae anicteric, no conjunctival injection, moist mucus membranes, postoperative changes of the mandible unchanged Lungs: Normal respiratory effort. Clear to auscultation bilaterally. No RRW. right anterior lower ribs mildly tender to palpation Heart: Regular rate and rhythm, no murmurs. No JVD Abdomen: Soft, nontender, nondistended. Bowel sounds present. Extremities: Warm, dry, well-perfused. No extremity edema. golf ball sized hematoma right anterior yao does not appear to be enlarging Neuro: Alert and oriented x place and basic situation vague historian which is unchanged, face symmetric, moves 4 extremities well Psych: Normal affect and behavior Results & Data Results & Data Vital Signs (Past 12 Hours) Vital Signs Temp Pulse Pulse Resp BP BP Pulse Ox 10/10/23 07:25 63 10/10/23 07:04 36.7 C 62 13 144/68 H 99 10/10/23 05:14 66 17 120/67 97 10/10/23 03:34 67 10/10/23 03:34 97 10/10/23 03:25 36.0 C L 74 16 133/73 98 O2 Del Method 10/10/23 07:25 10/10/23 07:04 Room Air 10/10/23 05:14 Room Air 10/10/23 03:34 10/10/23 03:34 Room Air 10/10/23 03:25 Room Air Laboratory Results 10/10/23 03:28 10/10/23 03:28 PG Care Time/CCT Total # of Minutes Spent Total Time Spent with Patient: Total time spent is greater than 50% in coordination of care (as documented) at patient's floor/unit and/or counseling patient: Coding Level of Care Code None Diagnoses Syncope and collapse R55 Acute UTI N39.0 Malignant neoplasm of lower third of esophagus C15.9 Malignant neoplasm of esophagus location: unspecified location CAD (coronary artery disease) I25.10 (3) Esophageal cancer Malignant neoplasm of esophagus location: unspecified location Qualified Code(s): C15.9 - Malignant neoplasm of esophagus, unspecified
[2023-10-10] MEDS ORDERED: ONDANSETRON INJ 2 MG/ML 2 ML VIAL IV PRN (11:47)
[2023-10-10] MEDS ORDERED: ACETAMINOPHEN 325 MG TAB PO PRN (11:47)
[2023-10-10] MEDS: CHOLECALCIFEROL 25 MCG (1000 UNITS) TAB PO SCH (12:59)
[2023-10-10] MEDS: ASPIRIN 81 MG ECTAB PO SCH (12:59)
[2023-10-10] MEDS: PANTOprazole 40 MG TAB PO SCH (13:00)
--- NOTE | 2023-10-10 16:28 | XCELERA ---
[id number]
[2023-10-10] MEDS: TAMSULOSIN HCL 0.4 MG CAP PO SCH (20:03)
[2023-10-10] MEDS: ROSUVASTATIN CALCIUM 10 MG TAB PO SCH (20:03)
[2023-10-11 07:55] LABS: Basophils # (auto) 0.02 K/uL (0.00-0.20); Basophils % (auto) 0.4 %; Eosinophils # (auto) 0.13 K/uL (0.00-0.50); Eosinophils % (auto) 2.7 %; Hematocrit (blood only) 30.2 % (42.0-52.0); Hemoglobin 9.8 g/dl (14.0-18.0); Immature Granulocytes # (auto) 0.01 K/uL (0.01-0.20); Immature Granulocytes % (auto) 0.2 %; Lymphocytes # (auto) 2.05 K/uL (1.20-3.40); Lymphocytes % (auto) 42.7 %; Mean Corpuscular Hemoglobin 30.9 pg (25.0-34.0); Mean Corpuscular Hgb Conc 32.5 g/dL (32.0-36.0); Mean Corpuscular Volume 95.3 fL (80.0-100.0); Mean Platelet Volume 9.2 fL (9.4-12.4); Monocytes # (auto) 0.68 K/uL (0.11-0.59); Monocytes % (auto) 14.2 %; Neutrophils # (auto) 1.91 K/uL (1.40-6.50); Neutrophils % (auto) 39.8 %; Platelet Count 179 K/uL (130-400); RDW Coefficient of Variation 18.2 % (11.5-14.5); RDW Standard Deviation 64.5 fL (36.4-46.3); Red Blood Count 3.17 M/uL (4.70-6.10)
[2023-10-11] MEDS ORDERED: TUBE FEEDING WATER FLUSH GT SCH (08:00)
[2023-10-11 08:10] LABS: Albumin Level 2.9 gm/dl (3.4-5.0); BUN Creatinine Ratio 15.3 (10-20); Calcium 8.2 mg/dl (8.6-10.3); Creatinine Clr Calc Pharmacy 87.3 ml/min; Est GFR (Non-African American) 90.6 ml/min; Magnesium 1.9 mg/dl (1.7-2.4); Phosphorus 3.2 mg/dl (2.5-4.9); Potassium 3.5 mmol/L (3.5-5.1)
[2023-10-11] MEDS: cefTRIAXone SODIUM 2,000 MG/50 ML BAG IV SCH (08:44)
--- NOTE | 2023-10-11 17:20 | Discharge Summary ---
Date of Service October 11, 2023 Admission HPI Per Admitting Provider The patient is a 78-year-old male with a past medical history including esophageal cancer diagnosed on 04/12/2023, recent admission for urinary tract infection from 09/06-09/09/2023, and completed a prescription for cefadroxil 7 days post discharge, colon adenocarcinoma, history of acute upper GI bleeding, history of left buttock stage II pressure ulcer, and history of acute blood loss anemia. The patient presented to the emergency department with a syncopal episode as noted above, of approximately 1 minute duration, that occurred without warning, and without previous occurrence. Principal Diagnosis syncopal episode, UTI Discharge Exam PHYSICAL EXAMINATION Last 24h vital signs reviewed, see documentation in flowsheet General: comfortable appearing, no distress exam unchanged 10/10 HEENT: pupils round and equal, sclerae anicteric, no conjunctival injection, moist mucus membranes, postoperative changes of the mandible unchanged Lungs: Normal respiratory effort. Clear to auscultation bilaterally. No RRW. Heart: Regular rate and rhythm, no murmurs. No JVD Abdomen: Soft, nontender, nondistended. Bowel sounds present. Extremities: Warm, dry, well-perfused. No extremity edema. golf ball sized hematoma right anterior yao does not appear to be enlarging Neuro: Alert and oriented x place and basic situation vague historian which is unchanged, face symmetric, moves 4 extremities well Psych: Normal affect and behavior Discharge Data Allergies Allergy/AdvReac Type Severity Reaction Status Date / Time No Known Allergies Allergy Verified 09/07/23 20:54 Consultations 10/10/23 05:49 ED Decision to Admit Stat Ordered Studies 10/10/23 03:39 CT head/brain wo con Stat Chest X-Ray 10/10/23 03:29 XR chest 1V portable CLINICAL HISTORY: syncope TECHNIQUE: Single frontal radiograph of the chest was obtained. Comparison: Comparison is made to chest radiograph 09/07/2023 FINDINGS: A port catheter is seen. Cardiomegaly is noted. The aortic arch is calcified. The lungs are clear. No evidence of pleural effusion or pneumothorax. IMPRESSION: No acute chest disease. Cardiomegaly is noted. ACT 112: Negative or not required by law. Electronically signed by: Ricky Hawk M.D. 10/10/2023 8:[address] 10/10/23 03:39 Exam(s): CT HEAD Without Contrast EXAM: CT Head Without Intravenous Contrast CLINICAL HISTORY: Reason for exam: syncope. TECHNIQUE: Axial computed tomography images of the head/brain without intravenous contrast. CTDI is 34.62 mGy and DLP is 624.41 mGy-cm. Automated exposure control was utilized for the study. A dose lowering technique was utilized adhering to the principles of ALARA. COMPARISON: No relevant prior studies available. 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 No hemorrhage. Ventricles: Unremarkable. No ventriculomegaly. Bones/joints: Unremarkable. No acute fracture. Soft tissues: Unremarkable. Sinuses: Unremarkable as visualized. No acute sinusitis. Mastoid air cells: Unremarkable as visualized. No mastoid effusion. IMPRESSION: No acute intracranial abnormality Electronically signed by: Denton Kincaid MD 10/10/23 05:10 AM Tibia/Fibula X-Ray 10/10/23 06:50 XR tibia fibula RT 2V CLINICAL HISTORY: hematoma TECHNIQUE: 2 radiographic views of the right leg were obtained. Comparison: None available at the time of this dictation. FINDINGS: There is no evidence of an acute fracture. Joint spaces are well-preserved. Mild soft tissue swelling is seen in the mid leg. IMPRESSION: Soft tissue swelling is seen without evidence of acute bony injury. ACT 112: Negative or not required by law. Electronically signed by: Ricky Hawk M.D. 10/10/2023 8:54 AM Hospital Course (1) Syncope and collapse: Syncope and collapse- Occurred after being awoken from sleep at 3:00 this morning by the need to urinate, and occurred before he made it to the bathroom. Disoriented for 1 minute after that per his . Not consistent with seizure and no stroke-like symptoms. Most likely orthostatic or vasovagal (micturition) syncope, possibly provoked by UTI -monitor tele - no events on telemetry -TTE unremarkable except for LVH, normal EF no significant valvular disease - did reasonably well on PT today with walker, declined mcc or rehab placement, preferred to return home where he lives with his son and home health (2) Acute UTI: possible UTI though no overt urinary symptoms. underlying BPH with LUTS Last admission August 2023 with urinary retention, hematuria, UTI. CT-KUB negative for obstruction. Flomax started. Britton removed prior to discharge. Urine culture mixed kemar. Blood cultures neg. UA abnormal with +LE +W and +bacteria, culture prelim gram-negative rods Given ceftriaxone in ED, discharged on oral cefadroxil Urine culture pending (3) Esophageal cancer: Recent diagnosis of esophageal adenocarcinoma just completed chemotherapy, radiation treatment early this spring. Is tolerating a soft diet at this time but has a J-tube in place for ongoing tube feed supplementation. - continue PPI (4) CAD (coronary artery disease): Extensive history of coronary artery disease status post multiple PCI with stenting x 9 per the medical record - admission EKG reviewed tracing - NSR with pac, LAFB - stable, cont ASA and statin Plan hematoma right anterior shintib-fib x-ray reviewed no fracture, monitor hematoma which appears stable history of Hypertension - stopped lisinopril last admission, no longer hypertensive History of head neck cancer 20 years ago status post significant surgery and reconstructive surgery history of colon cancer/adenocarcinoma of the colon status post resection. Ex tobacco abuse he quit smoking approximately 2 mo ago with the chemotherapy he states that he lost his desire to smoke after chemotherapy. Anemia of chronic disease-stable 10.9 g/dL hemoglobin Home with home health, lives with his son who assists I updated his son Steve by phone on 10/10 prior to discharge Total Time Total Time Spent Total Time Spent (In Minutes): I personally spent: 40 minutes today on clinical care activities including: reviewing chart notes and vital signs reviewing labs reviewing studies discussion with primary care nurse practitioner examining and counseling the patient counseling the patient's family writing orders, discharge instructions and prescriptions documentation Discharge Plan Discharge Items Patient Disposition: Home - Home Health Services Reason For Visit: Syncope and collapse Discharge Diagnosis: Syncope, UTI Activity: Resume your previous activity Non-emergency contact: Primary Care Provider Call non-emergency contact if: you have any medication questions, your symptoms worsen and you have a fever Follow-up/Referrals: Giovana Arnold CRNP [Primary Care Provider] - (PLEASE CALL YOUR PRIMARY CARE PROVIDER TO SCHEDULE A HOSPITAL DISCHARGE FOLLOW-UP APPOINTMENT WITHIN 7-10 DAYS) Diet: Other - See Diet Comment Addtl Attending Provider Instructions: You passed out (syncope) while walking to the bathroom This could have been caused by low blood pressure when standing up, aggravated by urinary tract infection Echo (heart ultrasound) was reassuring. There were no heart rhythm problems on monitoring. Take antibiotics for a week Urine culture is not resulted yet. If the bacteria from your urine turns out to be resistant to the antibiotics, I'll need to call you in a different presc ription Resume your usual diet/oral intake Home health PT and OT recommended to improve your walking and decrease risk of more falls Pending Studies at Discharge: Yes Studies:: urine culture pending Stand-Alone Forms: My [facility], Smoking Cessation Medications and DC Order Prescriptions: New cefadroxil 1 gram tablet 1,000 mg PO BID 7 Days Qty: 14 0RF Continued rosuvastatin 10 mg tablet 10 mg PO HS pantoprazole [Protonix] 40 mg tablet,delayed release (DR/EC) 40 mg PO BID Qty: 60 0RF aspirin 81 mg Tablet,Delayed Release (Dr/Ec) 81 mg PO QAM cholecalciferol (vitamin D3) [Vitamin D3] 50 mcg (2,000 unit) Capsule 50 mcg PO QAM tamsulosin 0.4 mg Capsule 0.4 mg PO HS Qty: 30 0RF Discontinued cefadroxil 1 gram tablet 1,000 mg PO BID Qty: 7 0RF Admission Data Admit Date/Time: 10/10/23 06:44 Attending Provider: Neftali Lambert Admit Provider: Neftali Lambert Primary Care Provider: Giovana Arnold Other Providers: Neftali Lambert; [facility],Home Healthcare; [facility],Referral Center Other Interventions: Discharge Summary Assessment (RN) Last Done: 10/11/23 12:43 Coding Level of Care Code 74293 INP/OBS DISCH >30 MIN Diagnoses Syncope and collapse R55 Acute UTI N39.0 Malignant neoplasm of lower third of esophagus C15.9 Malignant neoplasm of esophagus location: unspecified location CAD (coronary artery disease) I25.10
--- NOTE | 2023-10-12 21:46 | Electrocardiogram Report ---
Test Reason : Blood Pressure : / mmHG Vent. Rate : 069 BPM Atrial Rate : 069 BPM P-R Int : 162 ms QRS Dur : 110 ms QT Int : 454 ms P-R-T Axes : 036 -79 029 degrees QTc Int : 486 ms Sinus rhythm with Premature atrial complexes Left anterior fascicular block Prolonged QT Abnormal ECG When compared with ECG of 07-SEP-2023 23:06, No significant change was found Confirmed by Kvng Feliz ([id number]) on 10/12/2023 9:46:28 PM Referred By: NO PCP Confirmed By:Kvng Feliz
== END 2023-10-11 14:06 | disposition home health service (06) ==
LOC: SUATTDRO → ED 03:23 → EDINP 03:23 → 2N 11:48

== ENCOUNTER 2024-01-21 08:24 | Inpatient (IN) ==
--- NOTE | 2024-01-21 08:58 | Emergency Department Note ---
Impression & Plan Weakness, Cardiac dysrhythmia, Urinary tract infection, History of esophageal cancer, Falls frequently ED Provider Note NAME: BRIELLE ASHTON AGE: 78 SEX: M : 1945 ARRIVES VIA: Walk-In INFORMANT: Patient, patient's family ED PROVIDER(S): Akira Trevizo DO CHIEF COMPLAINT: Weakness HPI: The patient is a 78-year-old male who has a history of esophageal cancer who presented to the emergency department for an evaluation of weakness. The patient is that having falls and generalized weakness over the course the last week. The patient was also noted to have a low-grade fever and low blood pressure. The patient has not been seen by his family doctor. He was seen by his cancer doctor recently. The patient has problems walking and falls frequently. He states that his legs both become very weak. He denies having any headache or neck pain but his family states that he has hit his head recently. ROS: See above HPI for pertinent positives & negatives. A total of 10 systems reviewed and were otherwise negative. PAST MEDICAL HISTORY: See Below PAST SURGICAL HISTORY: See Below FAMILY HISTORY: See Below SOCIAL HISTORY: See Below HOME MEDICATIONS: See Below ALLERGIES: See Below VITALS: See Below PHYSICAL EXAMINATION: GENERAL: The patient is listless but responds to questions. EYES: The conjunctivae are clear. The pupils are round and reactive. EARS, NOSE, MOUTH AND THROAT: The nose is without any evidence of any deformity. Mucous membranes are moist. NECK: The neck is nontender and supple. RESPIRATORY: Normal respiratory effort is noted there is no evidence of wheezing rhonchi or rales CARDIOVASCULAR: Regular rate and rhythm noted there no murmurs rubs or gallops normal S1 normal S2. GASTROINTESTINAL: The abdomen is soft. Abdomen is nontender. MUSCULOSKELETAL/EXTREMITIES: There is no evidence of gross deformity full range of motion is noted in the hips and shoulders. SKIN: There is no obvious evidence of any rash. There are no petechiae, pallor or cyanosis noted. NEUROLOGIC: Patient is awake and oriented x3. Strength is symmetric but diminished. MEDICAL DECISION MAKING: The patient is a 78-year-old male who presented to the emergency department with family for an evaluation of generalized weakness. The patient was experiencing weakness which was both lower extremities. The patient has a history of esophageal cancer. He has been getting weaker and having episodes of falling and possibly having syncope. I discussed the patient's laboratory and radiographic studies with him and his family. He did have multiple episodes of a slow wide-complex dysrhythmia on cardiac monitoring. Given his findings as well as his overall conditioning I did discuss his condition with the on-call [facility] hospitalist. They have agreed to evaluate the patient in the emergency department. He was treated with IV fluids and IV antibiotics. Triage Nursing notes reviewed. Prior medical records reviewed Vital Signs: reviewed and remarkable for elevated blood pressure. Differential diagnosis: Infection, dehydration, metabolic abnormality, hypo/hyperglycemia, electrolyte disturbance, anemia, hypoxia, cardiac sources, intracerebral event, toxicologic, neurologic, as well as other pathologies. ER treatment provided: See below Diagnostics interpreted by me: ECG: EKG was obtained in the emergency department. My interpretation is normal sinus rhythm at 72 bpm. There is no ectopy. There is no acute ST segment abnormalities noted. This was compared to a tracing from October 10, 2023. No changes were noted. Cardiac Monitoring: An order was placed for continuous cardiac monitoring. The monitor shows a rate of 68 bpm with sinus rhythm. Laboratory studies: As stated above and show below. Imaging studies: See below. Radiographic imaging was reviewed by myself Consultation(s): I discussed this case with Dr. Leos who is on-call for the [facility] hospitalist group. Past Med/Surg History Problem List (Updated 01/21/24 @ 14:38 by Akira Trevizo DO) Falls frequently (Acute) History of esophageal cancer (Acute) Urinary tract infection (Acute) Cardiac dysrhythmia (Acute) Weakness (Acute) Goals of care, counseling/discussion Acute UTI (Acute) Cigarette smoker Esophageal cancer (Chronic 04/12/23) CAD (coronary artery disease) 2009- stent(s) ~2020 ([facility])- 2 stents Multiple caths/stents including the above noted, Total of 9 stents per spouse Hyperlipidemia Hypertension Hx of myocardial infarction 2009 Follows with [facility] cardiology Encounter for pre-operative examination Constipation Melena Acute blood loss anemia 04/2023 Colon adenocarcinoma Anemia (Acute) Abdominal pain (Acute) Acute upper gastrointestinal bleeding (Acute) Pressure ulcer of left buttock, stage 2 (Acute) resolved Past heart attack Medical History History of pressure ulcer resolved Hx of upper gastrointestinal hemorrhage 04/2023 Hx of myocardial infarction [address] [facility] cardiology HTN (hypertension) Hyperlipidemia CAD (coronary artery disease) 2009- stent(s) ~2020 (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 Surgical History Encounter for PEG (percutaneous endoscopic gastrostomy) (06/17/23) p Insertion Access Port Left Subclavian with Fluoroscopy(Left) - Ritchie Orozco, s Esophagogastroduodenoscopy with Insertion of Gastrostomy Tube(Not Applicable) - Ritchie Orozco DO Port-A-Cath in place (06/17/23) p Insertion Access Port Left Subclavian with Fluoroscopy(Left) - Ritchie Orozco DO s Esophagogastroduodenoscopy with Insertion of Gastrostomy Tube(Not Applicable) - Ritchie Orozco, History of esophagogastroduodenoscopy (EGD) Hx of colonoscopy History of nasal surgery Summer 2022 (jaw/nasal surgery) History of cardiac cath 2009- stent(s) ~2020 ([facility])- 2 stents Multiple caths/stents including the above noted, Total of 11 stents per spouse History of colon resection Hx of oral surgery Jaw surgery 2012 (r/t cancer) Status post aortic coarctation stent placement 10+ years ago Family History Sister Diabetes Sister Cancer Breast Brother Cancer Lung Brother Cancer Colon Social History Smoking Status: Current every day smoker Tobacco Type: Pipe Cigarettes Per Day: PIPE- ADVISED; Second Hand Exposure: No; Do You Dip or Chew Tobacco: No (HX - QUIT); Hx Alcohol Use: Yes Alcohol type: beer and hard liquor Hx Substance Use: No Preferred Language: Lithuanian Communication Ability: Effective Visual Impairment: Partially Limited Hearing Ability: Normal [employer] Required: No Beliefs That Will Affect Care: None marital status: Married2 Current Living Situation: Family current occupational status: disabled Feels Safe at Home: Yes Diet Comment: soft foods during the past year weight has: decreased > 10 lbs Assistive Devices: Cane, Denture - Upper, Walker and Wheelchair Allergies Allergies Allergy/AdvReac Type Severity Reaction Status Date / Time No Known Allergies Allergy Verified 12/24/23 08:19 Home Meds Home Medications Medication Instructions Recorded Confirmed rosuvastatin 10 mg tablet 10 mg PO HS 04/09/23 01/21/24 cholecalciferol (vitamin D3) 50 50 mcg PO QAM 09/07/23 01/21/24 mcg (2,000 unit) capsule (Vitamin D3) lidocaine-prilocaine 2.5 %-2.5 % 1 applic topical DIRECTED PRN 01/21/24 01/21/24 topical cream Other megestrol 400 mg/10 mL (40 mg/mL) 400 mg PO UD 01/21/24 01/21/24 oral suspension Previous Rx's Medication Instructions Recorded pantoprazole 40 mg tablet,delayed 40 mg PO BID #60 tabs 04/13/23 release (Protonix) tamsulosin 0.4 mg capsule 0.4 mg PO HS #30 caps 09/10/23 Results & Data (ED) Vital Signs Vital Signs - 24 hr 01/21/24 08:27 01/21/24 08:39 01/21/24 08:45 Temperature 36.4 C L Temperature Source Oral Pulse Rate 72 58 L Pulse Rate from SpO2 Sensor Respiratory Rate 19 Blood Pressure 99/65 L Blood Pressure Mean 76 Pulse Oximetry 95 Oxygen Delivery Method Room Air Room Air Sepsis Recent Fever Within 48 Hours No Sepsis New/Unexplained Change in Mental Status N/A Sepsis Action Taken by Nursing No Action Required 01/21/24 08:57 01/21/24 09:00 01/21/24 09:27 Temperature Temperature Source Pulse Rate 72 71 Pulse Rate from SpO2 Sensor 72 72 Respiratory Rate 17 23 Blood Pressure 140/77 Blood Pressure Mean 104 Pulse Oximetry 98 97 Oxygen Delivery Method Sepsis Recent Fever Within 48 Hours Sepsis New/Unexplained Change in Mental Status Sepsis Action Taken by Nursing 01/21/24 09:30 01/21/24 10:09 01/21/24 10:15 Temperature Temperature Source Pulse Rate 57 L Pulse Rate from SpO2 Sensor 58 L Respiratory Rate 17 Blood Pressure 159/76 H 164/87 H Blood Pressure Mean 97 128 Pulse Oximetry 98 Oxygen Delivery Method Sepsis Recent Fever Within 48 Hours Sepsis New/Unexplained Change in Mental Status Sepsis Action Taken by Nursing 01/21/24 10:15 01/21/24 10:27 01/21/24 10:30 Temperature Temperature Source Pulse Rate 58 L 67 Pulse Rate from SpO2 Sensor 54 L 64 Respiratory Rate 20 18 Blood Pressure 177/84 H Blood Pressure Mean 138 Pulse Oximetry 98 100 Oxygen Delivery Method Sepsis Recent Fever Within 48 Hours Sepsis New/Unexplained Change in Mental Status Sepsis Action Taken by Nursing 01/21/24 10:42 01/21/24 10:45 01/21/24 10:57 Temperature Temperature Source Pulse Rate 62 56 L Pulse Rate from SpO2 Sensor 62 56 L Respiratory Rate 22 18 Blood Pressure 174/73 H Blood Pressure Mean 137 Pulse Oximetry 98 98 Oxygen Delivery Method Sepsis Recent Fever Within 48 Hours Sepsis New/Unexplained Change in Mental Status Sepsis Action Taken by Nursing 01/21/24 11:00 01/21/24 11:09 01/21/24 11:15 Temperature Temperature Source Pulse Rate 64 Pulse Rate from SpO2 Sensor 58 L Respiratory Rate 22 Blood Pressure 159/73 H 175/78 H Blood Pressure Mean 116 128 Pulse Oximetry 98 Oxygen Delivery Method Sepsis Recent Fever Within 48 Hours Sepsis New/Unexplained Change in Mental Status Sepsis Action Taken by Nursing 01/21/24 11:18 01/21/24 11:30 01/21/24 11:36 Temperature Temperature Source Pulse Rate 56 L 54 L Pulse Rate from SpO2 Sensor 56 L 53 L Respiratory Rate 18 17 Blood Pressure 150/70 H Blood Pressure Mean 105 Pulse Oximetry 98 98 Oxygen Delivery Method Sepsis Recent Fever Within 48 Hours Sepsis New/Unexplained Change in Mental Status Sepsis Action Taken by Nursing 01/21/24 11:45 01/21/24 11:48 01/21/24 12:00 Temperature Temperature Source Pulse Rate 54 L Pulse Rate from SpO2 Sensor 54 L Respiratory Rate 17 Blood Pressure 154/70 H 137/74 Blood Pressure Mean 111 79 Pulse Oximetry 95 Oxygen Delivery Method Sepsis Recent Fever Within 48 Hours Sepsis New/Unexplained Change in Mental Status Sepsis Action Taken by Nursing 01/21/24 12:06 01/21/24 12:24 01/21/24 12:30 Temperature Temperature Source Pulse Rate 62 54 L Pulse Rate from SpO2 Sensor 54 L Respiratory Rate 22 20 Blood Pressure 155/74 H Blood Pressure Mean 113 Pulse Oximetry 98 Oxygen Delivery Method Sepsis Recent Fever Within 48 Hours Sepsis New/Unexplained Change in Mental Status Sepsis Action Taken by Nursing 01/21/24 12:30 01/21/24 12:54 01/21/24 12:56 Temperature Temperature Source Pulse Rate 56 L 54 L 63 Pulse Rate from SpO2 Sensor 57 L 55 L Respiratory Rate 22 18 Blood Pressure Blood Pressure Mean Pulse Oximetry 97 99 Oxygen Delivery Method Sepsis Recent Fever Within 48 Hours Sepsis New/Unexplained Change in Mental Status Sepsis Action Taken by Nursing 01/21/24 13:00 01/21/24 13:06 01/21/24 13:15 Temperature Temperature Source Pulse Rate 54 L Pulse Rate from SpO2 Sensor 55 L Respiratory Rate 19 Blood Pressure 146/71 H 147/77 H Blood Pressure Mean 83 86 Pulse Oximetry 90 Oxygen Delivery Method Sepsis Recent Fever Within 48 Hours Sepsis New/Unexplained Change in Mental Status Sepsis Action Taken by Nursing 01/21/24 13:30 01/21/24 13:36 01/21/24 13:39 Temperature Temperature Source Pulse Rate 62 Pulse Rate from SpO2 Sensor 62 Respiratory Rate 21 Blood Pressure 145/72 H 144/74 H Blood Pressure Mean 104 110 Pulse Oximetry 98 Oxygen Delivery Method Sepsis Recent Fever Within 48 Hours Sepsis New/Unexplained Change in Mental Status Sepsis Action Taken by Nursing 01/21/24 13:42 01/21/24 13:45 01/21/24 14:00 Temperature Temperature Source Pulse Rate 59 L Pulse Rate from SpO2 Sensor 58 L Respiratory Rate 24 Blood Pressure 163/73 H 163/73 H Blood Pressure Mean 118 118 Pulse Oximetry 98 Oxygen Delivery Method Sepsis Recent Fever Within 48 Hours Sepsis New/Unexplained Change in Mental Status Sepsis Action Taken by Nursing 01/21/24 14:00 Temperature Temperature Source Pulse Rate 68 Pulse Rate from SpO2 Sensor 55 L Respiratory Rate 16 Blood Pressure Blood Pressure Mean Pulse Oximetry 98 Oxygen Delivery Method Sepsis Recent Fever Within 48 Hours Sepsis New/Unexplained Change in Mental Status Sepsis Action Taken by [facility] Medications Current Medication List: was personally reviewed by me Laboratory Data Attestation: I reviewed the patient's lab results. 01/21/24 08:48 01/21/24 08:48 Lab Results 01/21/24 01/21/2401/20/24 Range/Units 08:48 09:07 11:03 WBC 8.75 (4.8-10.8) K/ul RBC 4.36 L (4.70-6.10) M/uL Hgb 12.3 L (14.0-18.0) g/dl Hct 38.5 L (42.0-52.0) % MCV 88.3 (80.0-100.0) fL MCH 28.2 (25.0-34.0) pg MCHC 31.9 L (32.0-36.0) g/dL RDW Std Deviation 52.4 H (36.4-46.3) fL RDW Coeff of Monet 16.2 H (11.5-14.5) % Plt Count 307 (130-400) K/uL MPV 8.5 L (9.4-12.4) fL Immature Gran % (Auto) 0.3 % Neut % (Auto) 62.6 % Lymph % (Auto) 21.9 % [place] % (Auto) 12.5 % Eos % (Auto) 2.4 % Baso % (Auto) 0.3 % Neut # (Auto) 5.47 (1.40-6.50) K/uL Lymph # (Auto) 1.92 (1.20-3.40) K/uL [place] # (Auto) 1.09 H (0.11-0.59) K/uL Eos # (Auto) 0.21 (0.00-0.50) K/uL Baso # (Auto) 0.03 (0.00-0.20) K/uL Immature Gran # (Auto) 0.03 (0.01-0.20) K/uL PT 11.1 (9.0-12.0) Seconds INR 1.0 (0.9-1.1) APTT 27 (21-31) Seconds PTT Ratio 1.0 VBG pH 7.38 (7.36-7.41) VBG pCO2 35 L (38-50) mmHg VBG pO2 29 mmHg VBG HCO3 21 mmol/L VBG O2 Saturation < 60.0 % VBG Base Excess -3.8 mEq/L Sodium 137 (136-145) mmol/L Potassium 3.7 (3.5-5.1) mmol/L Chloride 109 H (98-107) mmol/L Carbon Dioxide 21 (21-32) mmol/L Anion Gap 7 (3-11) BUN 15 (6-23) mg/dl Creatinine 0.73 (0.6-1.4) mg/dl Est Cr Clr Drug Dosing Not Reportable Est GFR ( Amer) 104.4 ml/min Est GFR (Non-Af Amer) 90.1 ml/min BUN/Creatinine Ratio 20.5 H (10-20) Glucose 96 (70-99(Fasting)) mg/dl Lactate 1.3 (0.4-2.0) mmol/L Calcium 9.1 (8.6-10.3) mg/dl Magnesium 2.0 (1.7-2.4) mg/dl Total Bilirubin 0.6 (0.2-1.0) mg/dl Direct Bilirubin 0.2 (0-0.2) mg/dl AST 19 (13-39) U/L ALT 11 (7-52) U/L Alkaline Phosphatase 48 (34-104) U/L Troponin I High Sens 9.5 (0-20) pg/ml Total Protein 6.6 (6.0-8.3) gm/dl Albumin 3.4 (3.4-5.0) gm/dl Procalcitonin 0.03 (0-0.5) ng/ml Urine Color Yellow Urine Appearance Cloudy A (Clear) Urine pH 6.5 (4.5-7.5) Ur Specific [place] 1.021 (1.000-1.030) Urine Protein Negative (Negative) Urine Glucose (UA) Negative (Negative) Urine Ketones Negative (Negative) Urine Blood Negative (Negative) Urine Nitrite Negative (Negative) Urine Bilirubin Negative (Negative) Urine Urobilinogen Negative (Negative) Ur Leukocyte Esterase 3+ H (Negative) Urine WBC (Auto) 21-50 H (0-5) /hpf Urine RBC (Auto) 0-2 (0-2) /hpf U Hyaline Cast (Auto) 0-2 (0-2) /lpf U Epithel Cells (Auto) 0-2 (0-2) /hpf Urine Bacteria (Auto) 4+ H (None Seen) Adenovirus (PCR) Not Detected (NotDetected) B. pertussis DNA (PCR) Not Detected (NotDetected) B.parapertussis DNA PCR Not Detected (NotDetected) C. pneumoniae DNA (PCR) Not Detected (NotDetected) Coronavirus OC43 (PCR) Not Detected (NotDetected) Coronavirus HKU1 (PCR) Not Detected (NotDetected) Coronavirus 229E (PCR) Not Detected (NotDetected) SARS-CoV-2 (PCR) Not Detected (NotDetected) Coronavirus NL63 (PCR) Not Detected (NotDetected) Human Metapneumovir PCR Not Detected (NotDetected) Influenza Type A (PCR) Not Detected (NotDetected) Influenza Type B (PCR) Not Detected (NotDetected) M. pneumoniae (PCR) Not Detected (NotDetected) Parainfluenza 1 (PCR) Not Detected (NotDetected) Parainfluenza 2 (PCR) Not Detected (NotDetected) Parainfluenza 3 (PCR) Not Detected (NotDetected) Parainfluenza 4 (PCR) Not Detected (NotDetected) RSV (PCR) Not Detected (NotDetected) Entero/Rhino (PCR) Not Detected (NotDetected) Administered Medications Parenteral Electrolytes (Plasma-Lyte A Ph 7.4) 1,000 mls @ 200 mls/hr IV .Q5H STA Stop: 01/21/24 17:50 Last Admin: 01/21/24 13:17 Dose: 200 mls/hr Documented By: STEPHANIE Discontinued Medications Sodium Chloride (Nss) 1,000 mls @ 999 mls/hr IV .Q1H1M ONE Stop: 01/21/24 09:40 Last Infusion: 01/21/24 11:07 Dose: Infused Documented By: Admin: 01/21/24 09:29 Dose: 999 mls/hr Documented By: STEPHANIE Ceftriaxone Sodium (Rocephin) 2,000 mg in 50 mls @ 100 mls/hr IV NOW STA Stop: 01/21/24 11:59 Last Infusion: 01/21/24 12:32 Dose: Infused Documented By: Admin: 01/21/24 11:43 Dose: 100 mls/hr Documented By: STEPHANIE Metoprolol Tartrate (Metoprolol Tartrate 25 Mg Tab) 12.5 mg PO ONE STA Stop: 01/21/24 12:52 Last Admin: 01/21/24 13:18 Dose: 12.5 mg Documented By: STEPHANIE Potassium Chloride (Potassium Chloride 20 Meq/15 Ml Udc) 40 meq PEG NOW STA Stop: 01/21/24 12:38 Last Admin: 01/21/24 13:18 Dose: 40 meq Documented By: STEPHANIE Imaging Data Attestation: I personally reviewed and interpreted this imaging study as follows: My Impression: 1 view chest x-ray was obtained in the emergency department. My interpretation is no free air or definite infiltrate, final report below. CT the brain was obtained in the emergency department. My interpretation is no intracranial hemorrhage or mass effect, final report below. Radiologist's Impression: Cervical Spine CT 01/21/24 08:38 CT OF THE CERVICAL SPINE WITHOUT CONTRAST CLINICAL HISTORY: fall COMPARISON STUDY: Neck CT May 19, 2018. PET/CT October 27, 2023. TECHNIQUE: Helical axial images of the cervical spine were obtained without IV contrast. Sagittal and coronal reconstructions were viewed. Automated exposure control was utilized for the study. A dose lowering technique was utilized adhering to the principles of ALARA. FINDINGS: Alignment of the cervical spine is anatomic. Vertebral body heights are maintained. No acute cervical spine fracture or subluxation is present. There is no prevertebral edema. Facet joints are intact. Mild multilevel degenerative changes within the cervical spine are present. IMPRESSION: No acute cervical spine fracture or subluxation. ACT 112: Negative or not required by law. Electronically signed by: Ernie Calderon M.D. 01/21/2024 9:[address] 01/21/24 08:38 CT head/brain wo con CLINICAL HISTORY: fall Technique: Contiguous axial CT images of the head were acquired from the base of the skull to the vertex without intravenous contrast administration. Images were viewed in brain, subdural and bone windows. Automated dose lowering techniques and/or adjustment according to patient size were utilized for this exam. Comparison: Comparison is made to CT head 10/10/2023 Findings: Areas of decreased attenuation are present in the periventricular and subcortical white matter bilaterally consistent with small vessel ischemic disease. Generalized cerebral atrophy with commensurate enlargement of the ventricles, sulci, and cisterns is also present. There is no acute intracranial hemorrhage or evidence of acute territorial infarction. No shift of the midline structures, mass effect, or extra-axial abnormalities are shown. Atherosclerotic calcifications are present in the intracranial segments of the internal carotid arteries. Focal encephalomalacia is again seen in the bilateral basal ganglia. Imaged portions of the paranasal sinuses and mastoid air cells are clear. The orbits appear normal. There are no acute fractures of the calvaria. Scalp swelling is seen in the posterior soft tissues. Impression: No acute intracranial hemorrhage or skull fractures. Scalp swelling is seen in the posterior soft tissues. ACT 112: Negative or not required by law. Electronically signed by: Ricky Hawk M.D. 01/21/2024 9:42 AM Pelvis X-Ray 01/21/24 08:38 XR pelvis 1-2V routine CLINICAL HISTORY: fall COMPARISON: CT of the abdomen and pelvis September 08, 2023. PET/CT October 27, 2023. FINDINGS: Sacroiliac joints and symphysis pubis are intact. No acute fractures within the pelvis or hips are identified. There is a moderate amount stool within the rectum. No osseous lesions are identified. Visualized bowel gas pattern is unremarkable. IMPRESSION: No fractures within the pelvis or hips. ACT 112: Negative or not required by law. Electronically signed by: Ernie Calderon M.D. 01/21/2024 9:05 AM Chest X-Ray 01/21/24 08:39 XR chest 1V portable CLINICAL HISTORY: Sepsis TECHNIQUE: Single frontal radiograph of the chest was obtained. Comparison: Comparison is made to chest radiograph 10/10/2023 FINDINGS: A port catheter is seen. Cardiomegaly is noted. The aortic arch is calcified. Reticular interstitial opacities are seen. No evidence of pleural effusion or pneumothorax. IMPRESSION: Interstitial thickening is seen without airspace disease to suggest pneumonia. ACT 112: Negative or not required by law. Electronically signed by: Ricky Hawk M.D. 01/21/2024 8:59 AM Discharge Plan Visit Data Chief Complaint: Illness Stated Complaint: WEAK, LOW FEVER, COUGH, VOMITING ED Provider: Akira Trevizo Discharge Problem: Weakness, Cardiac dysrhythmia, Urinary tract infection, History of esophageal cancer, Falls frequently Patient Disposition: Being Evaluated by Hospitalist Forms Stand Alone Forms: [facility] Prescriptions Prescriptions: No Action rosuvastatin 10 mg tablet 10 mg PO HS pantoprazole [Protonix] 40 mg tablet,delayed release (DR/EC) 40 mg PO BID Qty: 60 0RF lidocaine-prilocaine 2.5-2.5 % cream 1 applic topical DIRECTED PRN (Reason: Other) megestrol 400 mg/10 mL (40 mg/mL) suspension 400 mg PO UD Rx Instructions: per spouse, pt takes 40 ml in the am cholecalciferol (vitamin D3) [Vitamin D3] 50 mcg (2,000 unit) Capsule 50 mcg PO QAM tamsulosin 0.4 mg Capsule 0.4 mg PO HS Qty: 30 0RF Referrals Referrals: Giovana Arnold CRNP [Primary Care Provider] - Discharge Problem: Cardiac dysrhythmia Qualifiers: Arrhythmia type: unspecified cardiac arrhythmia Qualified Code(s): I49.9 - Cardiac arrhythmia, unspecified Urinary tract infection Qualifiers: Urinary tract infection type: site unspecified Hematuria presence: without hematuria Qualified Code(s): N39.0 - Urinary tract infection, site not specified
[2024-01-21 09:00] LABS: Basophils # (auto) 0.03 K/uL (0.00-0.20); Basophils % (auto) 0.3 %; Eosinophils # (auto) 0.21 K/uL (0.00-0.50); Eosinophils % (auto) 2.4 %; Hematocrit (blood only) 38.5 % (42.0-52.0); Hemoglobin 12.3 g/dl (14.0-18.0); Immature Granulocytes # (auto) 0.03 K/uL (0.01-0.20); Immature Granulocytes % (auto) 0.3 %; Lymphocytes # (auto) 1.92 K/uL (1.20-3.40); Lymphocytes % (auto) 21.9 %; Mean Corpuscular Hemoglobin 28.2 pg (25.0-34.0); Mean Corpuscular Hgb Conc 31.9 g/dL (32.0-36.0); Mean Corpuscular Volume 88.3 fL (80.0-100.0); Mean Platelet Volume 8.5 fL (9.4-12.4); Monocytes # (auto) 1.09 K/uL (0.11-0.59); Monocytes % (auto) 12.5 %; Neutrophils # (auto) 5.47 K/uL (1.40-6.50); Neutrophils % (auto) 62.6 %; Platelet Count 307 K/uL (130-400); RDW Coefficient of Variation 16.2 % (11.5-14.5); RDW Standard Deviation 52.4 fL (36.4-46.3); Red Blood Count 4.36 M/uL (4.70-6.10); White Blood Count 8.75 K/ul (4.8-10.8)
--- NOTE | 2024-01-21 09:06 | XRay Report ---
XR pelvis 1-2V routine CLINICAL HISTORY: fall COMPARISON: CT of the abdomen and pelvis September 08, 2023. PET/CT October 27, 2023. FINDINGS: Sacroiliac joints and symphysis pubis are intact. No acute fractures within the pelvis or hips are identified. There is a moderate amount stool within the rectum. No osseous lesions are ident ified. Visualized bowel gas pattern is unremarkable. IMPRESSION: No fractures within the pelvis or hips. ACT 112: Negative or not required by law. Electronically signed by: Ernie Calderon M.D. 01/21/2024 9:05 AM
[2024-01-21 09:17] LABS: Alanine Aminotransferase 11 U/L (7-52); Albumin Level 3.4 gm/dl (3.4-5.0); Alkaline Phosphatase 48 U/L (34-104); Anion Gap 7 (3-11); Aspartate Aminotransferase 19 U/L (13-39); BUN Creatinine Ratio 20.5 (10-20); Bilirubin Direct 0.2 mg/dl (0-0.2); Bilirubin,Total 0.6 mg/dl (0.2-1.0); Blood Urea Nitrogen 15 mg/dl (6-23); Calcium 9.1 mg/dl (8.6-10.3); Carbon Dioxide 21 mmol/L (21-32); Chloride 109 mmol/L (98-107); Est GFR (African American) 104.4 ml/min; Est GFR (Non-African American) 90.1 ml/min; Glucose 96 mg/dl (70-99(Fasting)); Potassium 3.7 mmol/L (3.5-5.1); Sodium 137 mmol/L (136-145); Total Protein 6.6 gm/dl (6.0-8.3)
[2024-01-21 09:18] LABS: Base Excess VBG -3.8 mEq/L; HCO3 VBG 21 mmol/L; Oxygen Saturation VBG < 60.0 %; PCO2 VBG 35 mmHg (38-50); PO2 VBG 29 mmHg; pH VBG 7.38 (7.36-7.41)
[2024-01-21 09:23] LABS: Troponin I High Sensitivity 9.5 pg/ml (0-20)
[2024-01-21 09:26] LABS: Partial Thromboplastin Time 27 Seconds (21-31); Prothrombin Time 11.1 Seconds (9.0-12.0)
[2024-01-21] MEDS: SODIUM CHLORIDE 0.9% 1,000 ML IV ONE (09:29)
--- NOTE | 2024-01-21 09:35 | CT Scan Report ---
CT OF THE CERVICAL SPINE WITHOUT CONTRAST CLINICAL HISTORY: fall COMPARISON STUDY: Neck CT May 19, 2018. PET/CT October 27, 2023. TECHNIQUE: Helical axial images of the cervical spine were obtained without IV contrast. Sagittal a nd coronal reconstructions were viewed. Automated exposure control was utilized for the study. A do se lowering technique was utilized adhering to the principles of ALARA. FINDINGS: Alignment of the cervical spine is anatomic. Vertebral body heights are maintained. No acut e cervical spine fracture or subluxation is present. There is no prevertebral edema. Facet joints are intact. Mild multilevel degenerative changes within the cervical spine are present. IMPRESSION: No acute cervical spine fracture or subluxation. ACT 112: Negative or not required by law. Electronically signed by: Ernie Calderon M.D. 01/21/2024 9:32 AM
--- NOTE | 2024-01-21 09:44 | CT Scan Report ---
CT head/brain wo con CLINICAL HISTORY: fall Technique: Contiguous axial CT images of the head were acquired from the base of the skull to the charo pérez without intravenous contrast administration. Images were viewed in brain, subdural and bone [facility]. Automated dose lowering techniques and/or adjustment according to patient size were utilized for this exam. Comparison: Comparison is made to CT head 10/10/2023 Findings: Areas of decreased attenuation are present in the periventricular and subcortical white matter bilate rally consistent with small vessel ischemic disease. Generalized cerebral atrophy with commensurate e nlargement of the ventricles, sulci, and cisterns is also present. There is no acute intracranial hem orrhage or evidence of acute territorial infarction. No shift of the midline structures, mass effect, or extra-axial abnormalities are shown. Atherosclerotic calcifications are present in the intracran ial segments of the internal carotid arteries. Focal encephalomalacia is again seen in the bilateral basal ganglia. Imaged portions of the paranasal sinuses and mastoid air cells are clear. The orbits appear normal. There are no acute fractures of the calvaria. Scalp swelling is seen in the posterior soft tissues. Impression: No acute intracranial hemorrhage or skull fractures. Scalp swelling is seen in the posterior soft tis sues. ACT 112: Negative or not required by law. Electronically signed by: Ricky Hawk M.D. 01/21/2024 9:42 AM
[2024-01-21 10:07] LABS: Adenovirus PCR Not Detected (NotDetected); Bordetella parapertussis PCR Not Detected (NotDetected); Bordetella pertussis PCR Not Detected (NotDetected); Chlamydia pneumoniae PCR Not Detected (NotDetected); Coronavirus 229E PCR Not Detected (NotDetected); Coronavirus CoV-2 (COVID19)PCR Not Detected (NotDetected); Coronavirus HKU1 PCR Not Detected (NotDetected); Coronavirus NL63 PCR Not Detected (NotDetected); Coronavirus OC43PCR Not Detected (NotDetected); Human Metapneumovirus PCR Not Detected (NotDetected); Influenza A PCR Not Detected (NotDetected); Influenza B PCR Not Detected (NotDetected); Mycoplasma pneumoniae PCR Not Detected (NotDetected); Parainfluenza Virus 1 PCR Not Detected (NotDetected); Parainfluenza Virus 2 PCR Not Detected (NotDetected); Parainfluenza Virus 3 PCR Not Detected (NotDetected); Parainfluenza Virus 4 PCR Not Detected (NotDetected); Respiratory Syncytial VirusPCR Not Detected (NotDetected); Rhinovirus/Enterovirus PCR Not Detected (NotDetected)
[2024-01-21 11:19] LABS: Appearance Urine Cloudy (Clear); Bacteria Urine Automated 4+ (None Seen); Bilirubin Urine Negative (Negative); Blood Urine Negative (Negative); Cast Urine Automated 0-2 /lpf (0-2); Color Urine Yellow; Epithelial Cell Urine Auto 0-2 /hpf (0-2); Glucose Urine UA Negative (Negative); Ketones Urine Negative (Negative); Leukocyte Esterase Urine 3+ (Negative); Nitrite Urine Negative (Negative); Protein Urine Negative (Negative); RBC Urine Automated 0-2 /hpf (0-2); Specific Gravity Urine 1.021 (1.000-1.030); Urobilinogen Urine Negative (Negative); WBC Urine Automated 21-50 /hpf (0-5); pH Urine 6.5 (4.5-7.5)
[2024-01-21] MEDS: cefTRIAXone SODIUM 2,000 MG/50 ML BAG IV STA (11:43)
--- NOTE | 2024-01-21 11:52 | History & Physical Report ---
Date of Service January 21, 2024 Assessment & Plan (1) Goals of care, counseling/discussion: Plan: Goals of care Did discuss with patient's son and POA, patient, and pt's partner at bedside. They report Steve has not been doing well and chemo has been exhausting for him and they were looking to have a hospice consult as outpatient. Did discuss his care with his enzyme chemist Dr. Begum, patient has not been tolerating chemotherapy well and feels that hospice is appropriate if family is interested in this. Patient's son Steve present on reassessment for family meeting @ ~230pm. Family meeting for ~35minutes held. [place], partner Naveed, patient charge can provider Dr. Garcia present for conversation. Steve is able to engage in conversation verbally and express preferences, some concerns for ability to understand the risk/benefits as they apply to him and has difficulty when asked to verbalize back what is being asked however son does help clarify points to his son and is his POA and feels he can advocate for what his father would want if he had a strong understanding of all decisions and information being provided. Steve and his family understand that he has cancer which has been poorly responsive to chemotherapy/immunotherapy, and that he has been very fatigued and with a diminished quality of life after this. Steve does feel that he would like to continue attempting to fight cancer to extend his life, even if this comes at a impaired quality of his life. He reports that is important to him to remain home if at all possible, but that this is not more important than coming to the hospital for reversible conditions such as i nfections or for medical treatments/fluids/electolyte treatments to help get him stronger. At some point he and his son feel that he may decide that being home is more important to him and would reconsider hospice, and he was very close to this point today before coming in but does not feel he is they are quite yet. He is very adamant he does not wish to pursue SNF or rehab therapy even if this would get him stronger to help fight the cancer, but also does not wish to pursue hospice therapy at this time. He does strongly feel that he does not want to be on life support or ventilator under any circumstances. He also would not want invasive procedures/surgery unless they were likely to improve how he felt. If he were so ill that his heart or breathing stopped/any CODE BLUE situation he would not want resuscitation and would want to be allowed to pass at that point. Confirms DNR/DNI status, and recently completed a living will which also states this. Will obtain this from family to be scanned into chart. He would like to remain in acute care and be admitted to the hospital at this time. (2) Weakness: Plan: Acute on chronic weakness multifactorial.? Intermittent wide-complex bradycardia, also with infected appearing UA Patient is not able to ambulate at his baseline with recurrent falls, admitted for treatment of UTI and PT/OT BioFire negative. Chest x-ray without consolidation suggestive of pneumonia Pelvis x-ray: No evidence of fracture Head CT/C-spine CT: No acute findings, no evidence of fracture, intracranial hemorrhage, or subluxation BioFire negative VBG 7.38/35/29/21 (3) Acute UTI: Plan: UTI UA infected appearing without contamination Prior cultures with pansensitive Klebsiella and MSSA Rocephin given in ER, continued (4) CAD (coronary artery disease): Plan: CAD, history of presyncope/syncope./To be vasovagal Extensive history of stents, 9 by record review. - Follows with [facility]. Pt reports due to extensive internal bleeding he had aspirin stopped. He is not on any antiplatelet agents despite stents, family reports they are aware of the risk of stent occlusion but risks exceed the benefits. He reports they were yana to place 2 additional stents, but this is on hold due to bleeding and his cancer treatment. [facility] contacted x 2, no nurse available. Voicemail left for call back to clarify cardiac history and antiplatelet recommendations. Given that patient has not had bleeding in over 6 months, is high risk for cardiac disease with indwelling stents will resume Plavix at time of admission. Admitting EKG normal sinus rhythm. CO 148, QRS 108, QTc 477. ? syncopal events related to a intermittent wide-complex bradycardia noted on telemetry in the ER. Telemetry reviewed, patient with slightly 100-minute of transition to a wide-complex rhythm rate approximately 60. Did review with cardiology, consistent with idioventricular rhythm. Agree with starting metoprolol tartrate 12.5 mg twice daily. Also agree with initiation of Plavix for stent protection. Patient is chest pain free at bedside Potassium 3.7, optimized to 4; magnesium 2.0 goal 2.0 Echo 10/2023: EF 55-60%, no regional wall motion abnormalities. Severe concentric LVH High sensitive troponin is normal - Pt denies chest pain (5) Esophageal cancer: Plan: Esophageal cancer EGD 12/2023: Lower esophageal ulcerative mass nonobstructing and partially circumferential seen. Intact gastrostomy with patent G-tube. Benign-appearing intrinsic moderate stenosis of the pylorus which was dilated. 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 Forwarded for additional FISH analysis which was subsequently HER2 FISH negative. Typically tolerate soft bite-size diet. - On chemo with Dr. Begum. Octivo on Wednesday, second treatment was held due to blood work. Started in June, last treatment was August 18, restarted tx this past . - G-Tube: Normally gets Boost up to 3-4 times per day and 2x 60cc flushes before and after each boost. Is able to tolerate a soft bite sized diet. No aspiration events per pt and family Plan Chronic stable issues History of colon cancer: S/p resection. 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 No acute bleeding. DVT prophylaxis: Lovenox Disposition: PCU CODE STATUS: DNR/DNI Diet: Nutrition consulted for G-tube feedings. May have a soft bite sized diet in addition to this History of Present Illness Primary Care Provider: ROOPA Tamez Steve is a 78-year-old male with a past medical history of esophageal cancer, colon adenocarcinoma s/p resection, recurrent UTIs, syncope previously thought to be related to either orthostatic or micturition vasovagal, CAD with extensive stenting (9 per past medical review) who presents to the ER with acute on chronic weakness. Patient having weakness and falls and is unable to ambulate at his normal baseline. Also with fevers and frequency. Seen at the bedside with his partner Naveed present, and son is present by phone at time of history. They report that Steve has been much more weak than normal, he attempted to restart immunotherapy with activity of this past Wednesday but is generally tolerated his treatments poorly. Has increased weakness, and is so weak he is unable to stand up from the toilet with near syncope at times. He denies chest pain, but per his has asked for nitro twice in the last 2 days. Has had a low-grade fever at home, patient endorses feeling cold and slightly feverish. Denies urinary symptoms, is peeing less than normal. Denies shortness of breath. Denies cough. He has been getting his nutrition mostly through G-tube where he gets 3 cans of boost with 2 syringe water flushes before and after each. He is able to tolerate some soft bite sized food without any aspiration events to his knowledge. He was taken off aspirin when he had GI bleeding related to his cancer around 6 months ago and this was not restarted. He does have somewhere between 9-11 stents per his , does not know if an antiplatelet was supposed to be restarted or not at any point. They note that he was considered to potentially have a cath and more stents placed however this was deferred due to his health condition, chemo, and was not emergent. Was able to review concerns with [place] [facility]. They report his Plavix was stopped in the setting of acute bleeding several months ago, he has not been seen for reevaluation since that time and was likely lost to follow-up. Agree with restarting Plavix at this time if he has not had clinical bleeding. Patient's son Steve present on reassessment for family meeting. Family meeting for ~35minutes held. [place], partner Naveed, patient charge can provider Dr. Garcia present for conversation. Steve is able to engage in conversation verbally and express preferences, some concerns for ability to understand the risk/benefits as they apply to him and has difficulty when asked to verbalize back what is being asked however son does help clarify points to his son and is his POA and feels he can advocate for what his father would want if he had a strong understanding of all decisions and information being provided. Steve and his family understand that he has cancer which has been poorly responsive to chemotherapy/immunotherapy, and that he has been very fatigued and with a diminished quality of life after this. Steve does feel that he would like to continue attempting to fight cancer to extend his life, even if this comes at a impaired quality of his life. He reports that is important to him to remain home if at all possible, but that this is not more important than coming to the hospital for reversible conditions such as infections or for medical treatments/fluids/electolyte treatments to help get him stronger. At some point he and his son feel that he may decide that being home is more important to him and would reconsider hospice, and he was very close to this point today before coming in but does not feel he is they are quite yet. He is very adamant he does not wish to pursue SNF or rehab therapy even if this would get him stronger to help fight the cancer, but also does not wish to pursue hospice therapy at this time. He does strongly feel that he does not want to be on life support or ventilator under any circumstances. He also would not want invasive procedures/surgery unless they were likely to improve how he felt. If he were so ill that his heart or breathing stopped/any CODE BLUE situation he would not want resuscitation and would want to be allowed to pass at that point. Confirms DNR/DNI status, and recently completed a living will which also states this. Will obtain this from family to be scanned into chart. He would like to remain in acute care and be admitted to the hospital at this time. Allergies Allergy/AdvReac Type Severity Reaction Status Date / Time No Known Allergies Allergy Verified 12/24/23 08:19 Home Medications Medication Instructions Recorded Confirmed Type rosuvastatin 10 mg tablet 10 mg PO HS 04/09/23 01/21/24 History pantoprazole 40 mg tablet,delayed 40 mg PO BID #60 tabs 04/13/23 01/21/24 Rx release (Protonix) cholecalciferol (vitamin D3) 50 50 mcg PO QAM 09/07/23 01/21/24 History mcg (2,000 unit) capsule (Vitamin D3) tamsulosin 0.4 mg capsule 0.4 mg PO HS #30 caps 09/10/23 01/21/24 Rx lidocaine-prilocaine 2.5 %-2.5 % 1 applic topical DIRECTED PRN 01/21/24 01/21/24 History topical cream Other megestrol 400 mg/10 mL (40 mg/mL) 400 mg PO UD 01/21/24 01/21/24 History oral suspension Past Med/Surg History Problem List (Updated 01/21/24 @ 14:38 by Akira Trevizo DO) Falls frequently (Acute) History of esophageal cancer (Acute) Urinary tract infection (Acute) Cardiac dysrhythmia (Acute) Weakness (Acute) Goals of care, counseling/discussion Acute UTI (Acute) Cigarette smoker Esophageal cancer (Chronic 04/12/23) CAD (coronary artery disease) 2009- stent(s) ~2020 ([facility])- 2 stents Multiple caths/stents including the above noted, Total of 9 stents per spouse Hyperlipidemia Hypertension Hx of myocardial infarction 2009 Follows with [facility] cardiology Encounter for pre-operative examination Constipation Melena Acute blood loss anemia 04/2023 Colon adenocarcinoma Anemia (Acute) Abdominal pain (Acute) Acute upper gastrointestinal bleeding (Acute) Pressure ulcer of left buttock, stage 2 (Acute) resolved Past heart attack Medical History History of pressure ulcer resolved Hx of upper gastrointestinal hemorrhage 04/2023 Hx of myocardial infarction 2009 Follows with [facility] cardiology HTN (hypertension) Hyperlipidemia CAD (coronary artery disease) 2009- stent(s) ~2020 ([facility])- 2 stents Multiple caths/stents including the above noted, Total of 9 stents per spouse Gastrostomy present Syncope and collapse (10/2023) caused by UTI, was seen and treated in [place] ER History of upper gastrointestinal bleeding 04/2023 Hx of esophageal malignancy dx 04/2023, completed chemo and radiation 08/2023 History of colon cancer Dx 2022 > colon resection Interstitial lung disease Chronic cough Psoriasis GERD (gastroesophageal reflux disease) 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), 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 Surgical History Encounter for PEG (percutaneous endoscopic gastrostomy) (06/17/23) p Insertion Access Port Left Subclavian with Fluoroscopy(Left) - Ritchie Orozco, s Esophagogastroduodenoscopy with Insertion of Gastrostomy Tube(Not Applicable) - Ritchie Orozco DO Port-A-Cath in place (06/17/23) p Insertion Access Port Left Subclavian with Fluoroscopy(Left) - Ritchie Orozco DO s Esophagogastroduodenoscopy with Insertion of Gastrostomy Tube(Not Applicable) - Ritchie Orozco, History of esophagogastroduodenoscopy (EGD) Hx of colonoscopy History of nasal surgery Summer 2022 (jaw/nasal surgery) History of cardiac cath 2009- stent(s) ~2020 ([facility] [place])- 2 stents Multiple caths/stents including the above noted, Total of 11 stents per spouse History of colon resection Hx of oral surgery Jaw surgery 2012 (r/t cancer) Status post aortic coarctation stent placement 10+ years ago Family History Sister Diabetes Sister Cancer Breast Brother Cancer Lung Brother Cancer Colon Social History Smoking Status: Current every day smoker Tobacco Type: Pipe Cigarettes Per Day: PIPE- ADVISED; Second Hand Exposure: No; Do You Dip or Chew Tobacco: No (HX - QUIT); Hx Alcohol Use: Yes Alcohol type: beer and hard liquor Hx Substance Use: No Preferred Language: Peruvian Communication Ability: Effective Visual Impairment: Partially Limited Hearing Ability: Normal Communications Controller Required: No Beliefs That Will Affect Care: None marital status: Married2 Current Living Situation: Family current occupational status: disabled Feels Safe at Home: Yes Diet Comment: soft foods during the past year weight has: decreased > 10 lbs Assistive Devices: Cane, Denture - Upper, Walker and Wheelchair Physical Exam Physical Exam: General: Somnolent, awakens easily. Alert and oriented to name, place, and year. Appears chronically ill but nontoxic. HEENT: S/p oral cancer surgery with reconstruction, scar is well-healed. Vision and hearing grossly intact Thorax: Left port intact no tenderness, or overlying erythema/warmth Pulm: CTAB A&P. -wheezes, -rales, -rhonchi. Symmetrical chest rise. No increased work of breathing. No respiratory distress. Cardiac: RRR, -mrg. Radial pulses intact and symmetrical. Abdominal: Nontender, nondistended, soft. BS present. PEG tube in place without surrounding erythema/discharge. Results & Data Results & Data Vital Signs (Past 12 Hours) Vital Signs Temp Pulse Resp BP Pulse Ox O2 Del Method 01/21/24 11:18 56 L 18 98 01/21/24 11:15 175/78 H 01/21/24 11:09 64 22 98 09/13/24 11:00 159/73 H 01/21/24 10:57 56 L 18 98 01/21/24 10:45 174/73 H 01/21/24 10:42 62 22 98 01/21/24 10:30 177/84 H 01/21/24 10:27 67 18 100 01/21/24 10:15 58 L 20 98 01/21/24 10:15 164/87 H 01/21/24 10:09 57 L 17 98 01/21/24 09:30 159/76 H 01/21/24 09:27 71 23 97 01/21/24 09:00 140/77 01/21/24 08:57 72 17 98 01/21/24 08:45 58 L 01/21/24 08:39 Room Air 01/21/24 08:27 36.4 C L 72 19 99/65 L 95 Room Air PG Care Time/CCT Total # of Minutes Spent Total Time Spent with Patient: Total time spent is greater than 50% in coordination of care (as documented) at patient's floor/unit and/or counseling patient: Coding Level of Care Code 15364 INT INP/OBS CARE 3/75MIN Diagnoses Goals of care, counseling/discussion Z71.89 Weakness R53.1 Acute UTI N39.0 CAD (coronary artery disease) I25.10 Malignant neoplasm of lower third of esophagus C15.9 Malignant neoplasm of esophagus location: unspecified location (5) Esophageal cancer Malignant neoplasm of esophagus location: unspecified location Qualified Code(s): C15.9 - Malignant neoplasm of esophagus, unspecified
[2024-01-21] MEDS: PLASMA-LYTE A 1,000 ML IV STA (13:17)
[2024-01-21] MEDS: METOPROLOL TARTRATE 25 MG TAB PO STA (13:18)
[2024-01-21] MEDS: POTASSIUM CHLORIDE 20 MEQ/15 ML UDC PEG STA (13:18)
--- NOTE | 2024-01-21 14:00 | Electrocardiogram Report ---
Test Reason : Blood Pressure : */* mmHG Vent. Rate : 72 BPM Atrial Rate : 72 BPM P-R Int : 148 ms QRS Dur : 108 ms QT Int : 436 ms P-R-T Axes : 59 -88 38 degrees QTcB Int : 477 ms Normal sinus rhythm Left anterior fascicular block Abnormal ECG When compared with ECG of 10-Oct-2023 03:27, Premature atrial complexes are no longer Present Confirmed by Akira Quiroz ([id number]) on 01/21/2024 2:00:37 PM Referred By: REFERRED SELF Confirmed By: Akira Quiroz
[2024-01-21] MEDS: ENOXAPARIN INJ 40 MG/0.4 ML SYR SQ STA (15:57)
[2024-01-21] MEDS: CLOPIDOGREL BISULFATE 75 MG TAB PEG STA (15:57)
[2024-01-21] MEDS ORDERED: ACETAMINOPHEN 325 MG TAB PO PRN (18:32)
[2024-01-21] MEDS: ROSUVASTATIN CALCIUM 10 MG TAB PO SCH (20:50)
[2024-01-21] MEDS: TAMSULOSIN HCL 0.4 MG CAP PO SCH (20:50)
[2024-01-22 08:00] LABS: Basophils # (auto) 0.02 K/uL (0.00-0.20); Basophils % (auto) 0.3 %; Eosinophils # (auto) 0.15 K/uL (0.00-0.50); Eosinophils % (auto) 2.1 %; Hematocrit (blood only) 34.4 % (42.0-52.0); Immature Granulocytes # (auto) 0.03 K/uL (0.01-0.20); Immature Granulocytes % (auto) 0.4 %; Lymphocytes # (auto) 1.32 K/uL (1.20-3.40); Lymphocytes % (auto) 18.6 %; Mean Corpuscular Volume 87.5 fL (80.0-100.0); Mean Platelet Volume 8.4 fL (9.4-12.4); Monocytes # (auto) 0.82 K/uL (0.11-0.59); Monocytes % (auto) 11.6 %; Neutrophils # (auto) 4.74 K/uL (1.40-6.50); Platelet Count 238 K/uL (130-400); RDW Coefficient of Variation 16.2 % (11.5-14.5); RDW Standard Deviation 51.8 fL (36.4-46.3); Red Blood Count 3.93 M/uL (4.70-6.10); White Blood Count 7.08 K/ul (4.8-10.8)
[2024-01-22 08:17] LABS: Calcium 8.6 mg/dl (8.6-10.3); Creatinine Clr Calc Pharmacy 85.3 ml/min; Est GFR (African American) 109.5 ml/min; Est GFR (Non-African American) 94.5 ml/min
[2024-01-22] MEDS: METOPROLOL TARTRATE 25 MG TAB PEG SCH (10:03)
[2024-01-22] MEDS: CLOPIDOGREL BISULFATE 75 MG TAB PEG SCH (10:03)
--- NOTE | 2024-01-22 12:21 | Hospitalist Progress Note ---
Date of Service January 22, 2024 Assessment & Plan (1) Goals of care, counseling/discussion: Plan: Upon speaking to the family, they are interested to know more about home hospice versus palliative care. They are considering home hospice but are struggling to understand why his cancer needs treatments need to stop This is going to be an ongoing discussion Patient will need palliative care on board. However palliative care is not available this weekend. (2) Weakness: Plan: Acute on chronic weakness multifactorial.? Intermittent wide-complex bradycardia, also with UTI Patient is not able to ambulate at his baseline with recurrent falls, admitted for treatment of UTI and PT/OT BioFire negative. Chest x-ray without consolidation suggestive of pneumonia Pelvis x-ray: No evidence of fracture Head CT/C-spine CT: No acute findings, no evidence of fracture, intracranial hemorrhage, or subluxation BioFire negative VBG 7.38/35// Patient wishes to have PT/OT while in the hospital. (3) Acute UTI: Plan: UTI UA infected appearing without contamination Prior cultures with pansensitive Klebsiella and MSSA Rocephin given in ER, continued Urine culture growing gram-negative kristan. Follow cultures (4) CAD (coronary artery disease): Plan: CAD, history of presyncope/syncope./To be vasovagal Extensive history of stents, 9 by record review. - Follows with [facility]. Pt reports due to extensive internal bleeding he had aspirin stopped. He is not on any antiplatelet agents despite stents, family reports they are aware of the risk of stent occlusion but risks exceed the benefits. He reports they were yana to place 2 additional stents, but this is on hold due to bleeding and his cancer treatment. [facility] contacted x 2, no nurse available. Voicemail left for call back to clarify cardiac history and antiplatelet recommendations. Given that patient has not had bleeding in over 6 months, is high risk for cardiac disease with indwelling stents will resume Plavix at time of admission. Admitting EKG normal sinus rhythm. ND 148, QRS 108, QTc 477. ? syncopal events related to a intermittent wide-complex bradycardia noted on telemetry in the ER. Telemetry reviewed, patient with slightly 100-minute of transition to a wide-complex rhythm rate approximately 60. Did review with cardiology, consistent with idioventricular rhythm. Agree with starting met oprolol tartrate 12.5 mg twice daily. Also agree with initiation of Plavix for stent protection. Patient is chest pain free at bedside Potassium 3.7, optimized to 4; magnesium 2.0 goal 2.0 Echo 10/2023: EF 55-60%, no regional wall motion abnormalities. Severe concentric LVH High sensitive troponin is normal - Pt denies chest pain (5) Esophageal cancer: Plan: Esophageal cancer EGD 12/2023: Lower esophageal ulcerative mass nonobstructing and partially circumferential seen. Intact gastrostomy with patent G-tube. Benign-appearing intrinsic moderate stenosis of the pylorus which was dilated. 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 Forwarded for additional FISH analysis which was subsequently HER2 FISH negative. Typically tolerate soft bite-size diet. - On chemo with Dr. Begum. Joy on Wednesday, second treatment was held due to blood work. Started in [facility], last treatment was August 18, restarted tx this past . - G-Tube: Normally gets Boost up to 3-4 times per day and 2x 60cc flushes before and after each boost. Is able to tolerate a soft bite sized diet. No aspiration events per pt and family Plan Chronic stable issues History of colon cancer: S/p resection. 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 No acute bleeding. DVT prophylaxis: Lovenox Disposition: PCU CODE STATUS: DNR/DNI Diet: Nutrition consulted for G-tube feedings. May have a soft bite sized diet in addition to this Admission and Anticipated Discharge Date Admission Date: January 21, 2024 Subjective Patient says he is very weak and would like some therapy while in the hospital. Spoke to and son in the room. They are interested to talk about home hospice in near future but would like to treat his urinary tract infection at this time. Review of Systems Review of Systems: All systems reviewed & are unremarkable except as noted in Subjective Physical Exam Physical Exam: General: Awake, conversant, cachectic. Appears chronically ill.. Status post reconstruction surgery with well-healed scar on lower jaw. Heart: S1, S2/regular rate and rhythm, no murmur rubs or gallops Lungs: Clear to auscultation bilaterally. Normal effort Abdomen: Soft/nontender/nondistended. No hepatosplenomegaly. PEG tube in place Extremities: No clubbing/cyanosis. No edema Behavior: Appropriate, cooperative Results & Data Results & Data Vital Signs (Past 12 Hours) Vital Signs Temp Pulse Pulse Resp BP Pulse Ox O2 Del Method 01/22/24 08:20 64 01/22/24 08:04 36.9 C 59 L 20 129/63 96 Room Air 01/22/24 08:00 Room Air 01/22/24 08:00 54 L 01/22/24 03:28 36.8 C 59 L 18 137/78 96 Room Air PG Care Time/CCT Total # of Minutes Spent Total Time Spent with Patient: Total time spent is greater than 50% in coordination of care (as documented) at patient's floor/unit and/or counseling patient: Coding Level of Care Code 75842 SUB INP/OBS CARE 2/35MIN Diagnoses Goals of care, counseling/discussion Z71.89 Weakness R53.1 Acute UTI N39.0 CAD (coronary artery disease) I25.10 Malignant neoplasm of lower third of esophagus C15.9 Malignant neoplasm of esophagus location: unspecified location (5) Esophageal cancer Malignant neoplasm of esophagus location: unspecified location Qualified Code(s): C15.9 - Malignant neoplasm of esophagus, unspecified
[2024-01-22] MEDS: cefTRIAXone SODIUM 2,000 MG/50 ML BAG IV SCH (12:28)
[2024-01-22] MEDS: TUBE FEEDING WATER FLUSH PEG SCH (13:59)
[2024-01-22] MEDS ORDERED: TUBE FEEDING WATER FLUSH PEG SCH (14:00)
[2024-01-22] MEDS: PATIENT'S OWN ENTERAL FEEDING PEG SCH (14:00)
[2024-01-22] MEDS: LANSOPRAZOLE 15 MG SOLTAB PEG SCH (14:38)
[2024-01-22] MEDS: ENOXAPARIN INJ 40 MG/0.4 ML SYR SQ SCH (22:14)
[2024-01-23 06:50] LABS: Basophils # (auto) 0.04 K/uL (0.00-0.20); Basophils % (auto) 0.5 %; Eosinophils # (auto) 0.21 K/uL (0.00-0.50); Eosinophils % (auto) 2.8 %; Hematocrit (blood only) 34.6 % (42.0-52.0); Hemoglobin 11.7 g/dl (14.0-18.0); Immature Granulocytes # (auto) 0.03 K/uL (0.01-0.20); Immature Granulocytes % (auto) 0.4 %; Lymphocytes # (auto) 1.42 K/uL (1.20-3.40); Lymphocytes % (auto) 18.9 %; Mean Corpuscular Hemoglobin 28.6 pg (25.0-34.0); Mean Corpuscular Hgb Conc 33.8 g/dL (32.0-36.0); Mean Corpuscular Volume 84.6 fL (80.0-100.0); Mean Platelet Volume 8.8 fL (9.4-12.4); Monocytes % (auto) 13.3 %; Neutrophils # (auto) 4.82 K/uL (1.40-6.50); Neutrophils % (auto) 64.1 %; Platelet Count 279 K/uL (130-400); RDW Coefficient of Variation 16.1 % (11.5-14.5); RDW Standard Deviation 49.8 fL (36.4-46.3); Red Blood Count 4.09 M/uL (4.70-6.10); White Blood Count 7.52 K/ul (4.8-10.8)
[2024-01-23 07:16] LABS: BUN Creatinine Ratio 24.1 (10-20); Calcium 8.6 mg/dl (8.6-10.3); Creatinine Clr Calc Pharmacy 102.6 ml/min; Est GFR (African American) 118.2 ml/min; Potassium 3.6 mmol/L (3.5-5.1)
[2024-01-23] MEDS: CLOPIDOGREL BISULFATE 75 MG TAB PO SCH (10:13)
[2024-01-23] MEDS: METOPROLOL TARTRATE 25 MG TAB PO SCH (10:13)
[2024-01-23] MEDS: LANSOPRAZOLE 15 MG SOLTAB PO SCH (10:13)
--- NOTE | 2024-01-23 11:29 | Hospitalist Progress Note ---
Date of Service January 23, 2024 Assessment & Plan (1) Goals of care, counseling/discussion: Plan: Upon speaking to the family, they are interested to know more about home hospice versus palliative care. They are considering home hospice but are struggling to understand why his cancer needs treatments need to stop This is going to be an ongoing discussion Palliative consulted (2) Weakness: Plan: Acute on chronic weakness multifactorial.? Intermittent wide-complex bradycardia, also with UTI Patient is not able to ambulate at his baseline with recurrent falls, admitted for treatment of UTI and PT/OT BioFire negative. Chest x-ray without consolidation suggestive of pneumonia Pelvis x-ray: No evidence of fracture Head CT/C-spine CT: No acute findings, no evidence of fracture, intracranial hemorrhage, or subluxation BioFire negative VBG 7.38/35// Patient wishes to have PT/OT while in the hospital. (3) Acute UTI: Plan: UTI UA infected appearing without contamination Prior cultures with pansensitive Klebsiella and MSSA Rocephin given in ER, continued Urine culture growing gram-negative kristan. Follow cultures (4) CAD (coronary artery disease): Plan: CAD, history of presyncope/syncope./To be vasovagal Extensive history of stents, 9 by record review. - Follows with [facility]. Pt reports due to extensive internal bleeding he had aspirin stopped. He is not on any antiplatelet agents despite stents, family reports they are aware of the risk of stent occlusion but risks exceed the benefits. He reports they were yana to place 2 additional stents, but this is on hold due to bleeding and his cancer treatment. [facility] contacted x 2, no nurse available. Voicemail left for call back to clarify cardiac history and antiplatelet recommendations. Given that patient has not had bleeding in over 6 months, is high risk for cardiac disease with indwelling stents will resume Plavix at time of admission. Admitting EKG normal sinus rhythm. CT 148, QRS 108, QTc 477. ? syncopal events related to a intermittent wide-complex bradycardia noted on telemetry in the ER. Telemetry reviewed, patient with slightly 100-minute of transition to a wide-complex rhythm rate approximately 60. Did review with cardiology, consistent with idioventricular rhythm. Agree with starting metoprolol tartrate 12.5 mg twice daily. Also agree with initiation of Plavix for stent protection. Patient is chest pain free at bedside Potassium 3.7, optimized to 4; magnesium 2.0 goal 2.0 Echo 10/2023: EF 55-60%, no regional wall motion abnormalities. Severe concentric LVH High sensitive troponin is normal - Pt denies chest pain (5) Esophageal cancer: Plan: Esophageal cancer EGD 12/2023: Lower esophageal ulcerative mass nonobstructing and partially circumferential seen. Intact gastrostomy with patent G-tube. Benign-appearing intrinsic moderate stenosis of the pylorus which was dilated. 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 Forwarded for additional FISH analysis which was subsequently HER2 FISH negative. Typically tolerate soft bite-size diet. - On chemo with Dr. Begum. Octlolao on Wednesday, second treatment was held due to blood work. Started in June, last treatment was August 18, restarted tx this past . - G-Tube: Normally gets Boost up to 3-4 times per day and 2x 60cc flushes before and after each boost. Is able to tolerate a soft bite sized diet. No aspiration events per pt and family (6) Malnutrition: Plan: Due to cancer and poor intake Nutritional services on board continue some oral supplements Patient still on a combination of G tube and oral feeds Plan Chronic stable issues History of colon cancer: S/p resection. 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 No acute bleeding. DVT prophylaxis: Lovenox Disposition: PCU CODE STATUS: DNR/DNI Diet: Nutrition consulted for G-tube feedings. May have a soft bite sized diet in addition to this Admission and Anticipated Discharge Date Admission Date: January 21, 2024 Subjective patient seen and examined, had breakfast, but not participating in therapy due to weakness Review of Systems Review of Systems: All systems reviewed are negative, apart from the ones contained in the history. Physical Exam Physical Exam: The patient is awake, alert and oriented 3, thin looking HEENT--PERRL, EOMI, mucous membranes and oropharynx mildly dry Neck--supple. No JVD. No bruits. Thyroid normal, trachea midline, no adenopathy. Heart--normal S1 and S2. No murmurs, rubs or gallops. Lungs--clear bilaterally, no respiratory distress, no accessory muscle use. Abdomen--normal bowel sounds and soft. Extremities--no cyanosis or clubbing. poor muscle tone. Dermatologic--normal skin turgor, normal color, no abnormal lymph nodes, no rash. Neurologic--cranial nerves II through XII grossly intact. Rheumatologic--normal range of motion. Psychiatric--normal affect. Results & Data Results & Data Vital Signs (Past 12 Hours) Vital Signs Temp Pulse Resp BP Pulse Ox O2 Del Method 01/23/24 10:51 Room Air 01/23/24 08:10 83 21 134/86 95 Room Air 01/23/24 03:18 98.2 F 69 18 157/83 H 96 Room Air PG Care Time/CCT Total # of Minutes Spent Total Time Spent with Patient: Total time spent is greater than 50% in coordination of care (as documented) at patient's floor/unit and/or counseling patient: Coding Level of Care Code 88884 SUB INP/OBS CARE 2/35MIN Diagnoses Goals of care, counseling/discussion Z71.89 Weakness R53.1 Acute UTI N39.0 CAD (coronary artery disease) I25.10 Malignant neoplasm of lower third of esophagus C15.9 Malignant neoplasm of esophagus location: unspecified location Malnutrition E46 Time Spent (min) 35 (5) Esophageal cancer Malignant neoplasm of esophagus location: unspecified location Qualified Code(s): C15.9 - Malignant neoplasm of esophagus, unspecified
[2024-01-24 06:52] LABS: Basophils # (auto) 0.04 K/uL (0.00-0.20); Basophils % (auto) 0.5 %; Eosinophils # (auto) 0.21 K/uL (0.00-0.50); Eosinophils % (auto) 2.7 %; Hematocrit (blood only) 37.2 % (42.0-52.0); Immature Granulocytes # (auto) 0.03 K/uL (0.01-0.20); Immature Granulocytes % (auto) 0.4 %; Lymphocytes # (auto) 1.73 K/uL (1.20-3.40); Lymphocytes % (auto) 21.9 %; Mean Corpuscular Hemoglobin 28.2 pg (25.0-34.0); Mean Corpuscular Hgb Conc 32.3 g/dL (32.0-36.0); Mean Corpuscular Volume 87.5 fL (80.0-100.0); Mean Platelet Volume 8.9 fL (9.4-12.4); Monocytes # (auto) 1.06 K/uL (0.11-0.59); Monocytes % (auto) 13.4 %; Neutrophils # (auto) 4.83 K/uL (1.40-6.50); Neutrophils % (auto) 61.1 %; Platelet Count 273 K/uL (130-400); RDW Coefficient of Variation 16.7 % (11.5-14.5); RDW Standard Deviation 52.9 fL (36.4-46.3); Red Blood Count 4.25 M/uL (4.70-6.10)
[2024-01-24 07:21] LABS: Calcium 8.7 mg/dl (8.6-10.3); Creatinine Clr Calc Pharmacy 90.7 ml/min; Est GFR (African American) 110.9 ml/min; Est GFR (Non-African American) 95.7 ml/min; Potassium 3.6 mmol/L (3.5-5.1)
--- NOTE | 2024-01-24 12:42 | Hospitalist Progress Note ---
Date of Service January 24, 2024 Assessment & Plan (1) Goals of care, counseling/discussion: Plan: Upon speaking to the family, they are interested to know more about home hospice versus palliative care. They are considering home hospice but are struggling to understand why his cancer needs treatments need to stop This is going to be an ongoing discussion Palliative consulted (2) Weakness: Plan: Acute on chronic weakness multifactorial.? Intermittent wide-complex bradycardia, also with UTI Patient is not able to ambulate at his baseline with recurrent falls, admitted for treatment of UTI and PT/OT BioFire negative. Chest x-ray without consolidation suggestive of pneumonia Pelvis x-ray: No evidence of fracture Head CT/C-spine CT: No acute findings, no evidence of fracture, intracranial hemorrhage, or subluxation BioFire negative VBG 7.38/35// Patient wishes to have PT/OT while in the hospital, however, he has not been participating in PT (3) Acute UTI: Plan: UTI UA infected appearing without contamination Prior cultures with pansensitive Klebsiella and MSSA Continue Rocephin Urine culture growing gram-negative kristan. Follow cultures and sensitivities (4) CAD (coronary artery disease): Plan: CAD, history of presyncope/syncope./To be vasovagal Extensive history of stents, 9 by record review. - Follows with [facility]. Pt reports due to extensive internal bleeding he had aspirin stopped. He is not on any antiplatelet agents despite stents, family reports they are aware of the risk of stent occlusion but risks exceed the benefits. He reports they were yana to place 2 additional stents, but this is on hold due to bleeding and his cancer treatment. [facility] contacted x 2, no nurse available. Voicemail left for call back to clarify cardiac history and antiplatelet recommendations. Given that patient has not had bleeding in over 6 months, is high risk for cardiac disease with indwelling stents will resume Plavix at time of admission. Admitting EKG normal sinus rhythm. FL 148, QRS 108, QTc 477. ? syncopal events related to a intermittent wide-complex bradycardia noted on telemetry in the ER. Telemetry reviewed, patient with slightly 100-minute of transition to a wide-complex rhythm rate approximately 60. Did review with cardiology, consistent with idioventricular rhythm. Agree with starting metoprolol tartrate 12.5 mg twice daily. Also agree with initiation of Plavix for stent protection. Patient is chest pain free at bedside Potassium 3.7, optimized to 4; magnesium 2.0 goal 2.0 Echo 10/2023: EF 55-60%, no regional wall motion abnormalities. Severe concentric LVH High sensitive troponin is normal - Pt denies chest pain (5) Esophageal cancer: Plan: Esophageal cancer EGD 12/2023: Lower esophageal ulcerative mass nonobstructing and partially circumferential seen. Intact gastrostomy with patent G-tube. Benign-appearing intrinsic moderate stenosis of the pylorus which was dilated. 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 Forwarded for additional FISH analysis which was subsequently HER2 FISH negative. Typically tolerate soft bite-size diet. - On chemo with Dr. Begum. Joy on Wednesday, second treatment was held due to blood work. Started in [facility], last treatment was August 18, restarted tx this past . - G-Tube: Normally gets Boost up to 3-4 times per day and 2x 60cc flushes before and after each boost. Is able to tolerate a soft bite sized diet. No aspiration events per pt and family (6) Malnutrition: Plan: Due to cancer and poor intake Nutritional services on board continue some oral supplements Patient still on a combination of G tube and oral feeds Plan Chronic stable issues History of colon cancer: S/p resection. 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 No acute bleeding. DVT prophylaxis: Lovenox Disposition: PCU CODE STATUS: DNR/DNI Diet: Nutrition consulted for G-tube feedings. May have a soft bite sized diet in addition to this Admission and Anticipated Discharge Date Admission Date: January 21, 2024 Subjective patient seen and examined, significant other by the bed side, but not participating in therapy due to weakness, awaiting palliative assessement Review of Systems Review of Systems: All systems reviewed are negative, apart from the ones contained in the history. Physical Exam Physical Exam: The patient is awake, alert and oriented 3, thin looking HEENT--PERRL, EOMI, mucous membranes and oropharynx mildly dry Neck--supple. No JVD. No bruits. Thyroid normal, trachea midline, no adenopathy. Heart--normal S1 and S2. No murmurs, rubs or gallops. Lungs--clear bilaterally, no respiratory distress, no accessory muscle use. Abdomen--normal bowel sounds and soft. Extremities--no cyanosis or clubbing. poor muscle tone. Dermatologic--normal skin turgor, normal color, no abnormal lymph nodes, no rash. Neurologic--cranial nerves II through XII grossly intact. Rheumatologic--normal range of motion. Psychiatric--normal affect. Results & Data Results & Data Vital Signs (Past 12 Hours) Vital Signs Temp Pulse Pulse Resp BP Pulse Ox O2 Del Method 01/24/24 11:25 97.9 F 65 18 130/78 97 Room Air 01/24/24 07:54 97.9 F 86 20 115/78 95 Room Air 01/24/24 07:16 72 PG Care Time/CCT Total # of Minutes Spent Total Time Spent with Patient: Total time spent is greater than 50% in coordination of care (as documented) at patient's floor/unit and/or counseling patient: Coding Level of Care Code 97422 SUB INP/OBS CARE 2/35MIN Diagnoses Goals of care, counseling/discussion Z71.89 Weakness R53.1 Acute UTI N39.0 CAD (coronary artery disease) I25.10 Malignant neoplasm of lower third of esophagus C15.9 Malignant neoplasm of esophagus location: unspecified location Malnutrition E46 Time Spent (min) 35 (5) Esophageal cancer Malignant neoplasm of esophagus location: unspecified location Qualified Code(s): C15.9 - Malignant neoplasm of esophagus, unspecified
[2024-01-24 23:34] VITALS: TEMP 97.3
[2024-01-25 08:26] LABS: Hematocrit (blood only) 35.2 % (42.0-52.0); Hemoglobin 11.8 g/dl (14.0-18.0); Mean Corpuscular Hgb Conc 33.5 g/dL (32.0-36.0); Mean Corpuscular Volume 86.5 fL (80.0-100.0); Platelet Count 252 K/uL (130-400); RDW Coefficient of Variation 16.9 % (11.5-14.5); RDW Standard Deviation 52.9 fL (36.4-46.3); Red Blood Count 4.07 M/uL (4.70-6.10); White Blood Count 7.59 K/ul (4.8-10.8)
[2024-01-25 08:47] LABS: BUN Creatinine Ratio 35.4 (10-20); Calcium 8.7 mg/dl (8.6-10.3); Creatinine Clr Calc Pharmacy 88.6 ml/min; Est GFR (African American) 109.5 ml/min; Est GFR (Non-African American) 94.5 ml/min; Potassium 3.8 mmol/L (3.5-5.1)
[2024-01-25 11:45] VITALS: PULSE 74; RESP 20; O2SAT 97
[2024-01-25 13:15] VITALS: BP 131/77
--- NOTE | 2024-01-25 13:55 | Discharge Summary ---
Date of Service January 25, 2024 Admission HPI Per Admitting Provider Steve is a 78-year-old male with a past medical history of esophageal cancer, colon adenocarcinoma s/p resection, recurrent UTIs, syncope previously thought to be related to either orthostatic or micturition vasovagal, CAD with extensive stenting (9 per past medical review) who presents to the ER with acute on chronic weakness. Patient having weakness and falls and is unable to ambulate at his normal baseline. Also with fevers and frequency. Seen at the bedside with his partner Naveed present, and son is present by phone at time of history. They report that Steve has been much more weak than normal, he attempted to restart immunotherapy with activity of this past Wednesday but is generally tolerated his treatments poorly. Has increased weakness, and is so weak he is unable to stand up from the toilet with near syncope at times. He denies chest pain, but per his has asked for nitro twice in the last 2 days. Has had a low-grade fever at home, patient endorses feeling cold and slightly feverish. Denies urinary symptoms, is peeing less than normal. Denies shortness of breath. Denies cough. He has been getting his nutrition mostly through G-tube where he gets 3 cans of boost with 2 syringe water flushes before and after each. He is able to tolerate some soft bite sized food without any aspiration events to his knowledge. He was taken off aspirin when he had GI bleeding related to his cancer around 6 months ago and this was not restarted. He does have somewhere between 9-11 stents per his , does not know if an antiplatelet was supposed to be restarted or not at any point. They note that he was considered to potentially have a cath and more stents placed however this was deferred due to his health condition, chemo, and was not emergent. Was able to review concerns with [facility]. They report his Plavix was stopped in the setting of acute bleeding several months ago, he has not been seen for reevaluation since that time and was likely lost to follow-up. Agree with restarting Plavix at this time if he has not had clinical bleeding. Patient's son Steve present on reassessment for family meeting. Family meeting for ~35minutes held. [facility], partner Naveed, patient charge can provider Dr. Garcia present for conversation. Steve is able to engage in conversation verbally and express preferences, some concerns for ability to understand the risk/benefits as they apply to him and has difficulty when asked to verbalize back what is being asked however son does help clarify points to his son and is his POA and feels he can advocate for what his father would want if he had a strong understanding of all decisions and information being provided. Steve and his family understand that he has cancer which has been poorly responsive to chemotherapy/immunotherapy, and that he has been very fatigued and with a diminished quality of life after this. Steve does feel that he would like to continue attempting to fight cancer to extend his life, even if this comes at a impaired quality of his life. He reports that is important to him to remain home if at all possible, but that this is not more important than coming to the hospital for reversible conditions such as infections or for medical treatments/fluids/electolyte treatments to help get him stronger. At some point he and his son feel that he may decide that being home is more important to him and would reconsider hospice, and he was very close to this point today before coming in but does not feel he is they are quite yet. He is very adamant he does not wish to pursue SNF or rehab therapy even if this would get him stronger to help fight the cancer, but also does not wish to pursue hospice therapy at this time. He does strongly feel that he does not want to be on life support or ventilator under any circumstances. He also would not want invasive procedures/surgery unless they were likely to improve how he felt. If he were so ill that his heart or breathing stopped/any CODE BLUE situation he would not want resuscitation and would want to be allowed to pass at that point. Confirms DNR/DNI status, and recently completed a living will which also states this. Wi ll obtain this from family to be scanned into chart. He would like to remain in acute care and be admitted to the hospital at this time. Admission Exam (Per Admitting) Constitutional The patient is awake, alert and oriented 3, chronically ill looking HEENT--PERRL, EOMI, mucous membranes and oropharynx mildly dry Neck--supple. No JVD. No bruits. Thyroid normal, trachea midline, no adenopathy. Heart--normal S1 and S2. No murmurs, rubs or gallops. Lungs--clear bilaterally, no respiratory distress, no accessory muscle use. Abdomen--normal bowel sounds and soft. Extremities--no cyanosis or clubbing. No edema. Dermatologic--normal skin turgor, normal color, no abnormal lymph nodes, no rash. Neurologic--cranial nerves II through XII grossly intact. Rheumatologic--normal range of motion. Psychiatric--normal affect. Discharge Data Consultations 01/21/24 11:28 ED Decision to Admit Stat 01/23/24 11:02 Consult Palliative Care Routine Hospital Course (1) Goals of care, counseling/discussion: Upon speaking to the family, they are interested to know more about home hospice versus palliative care. They are considering home hospice but are struggling to understand why his cancer needs treatments need to stop This is going to be an ongoing discussion Palliative consulted (2) Weakness: Acute on chronic weakness multifactorial.? Intermittent wide-complex bradycardia, also with UTI Patient is not able to ambulate at his baseline with recurrent falls, admitted for treatment of UTI and PT/OT BioFire negative. Chest x-ray without consolidation suggestive of pneumonia Pelvis x-ray: No evidence of fracture Head CT/C-spine CT: No acute findings, no evidence of fracture, intracranial hemorrhage, or subluxation BioFire negative VBG 7.38/35/29/21 Patient wishes to have PT/OT while in the hospital, however, he has not been participating in PT (3) Acute UTI: UTI UA infected appearing without contamination Prior cultures with pansensitive Klebsiella and MSSA Started on IV Rocephin Urine culture growing klebsiella yet again, petit sensitive -Transition to PO Ciprofloxacin (4) CAD (coronary artery disease): CAD, history of presyncope/syncope./To be vasovagal Extensive history of stents, 9 by record review. - Follows with [facility]. Pt reports due to extensive internal bleeding he had aspirin stopped. He is not on any antiplatelet agents despite stents, family reports they are aware of the risk of stent occlusion but risks exceed the benefits. He reports they were yana to place 2 additional stents, but this is on hold due to bleeding and his cancer treatment. [facility] contacted x 2, no nurse available. Voicemail left for call back to clarify cardiac history and antiplatelet recommendations. Given that patient has not had bleeding in over 6 months, is high risk for cardiac disease with indwelling stents will resume Plavix at time of admission. Admitting EKG normal sinus rhythm. WY 148, QRS 108, QTc 477. ? syncopal events related to a intermittent wide-complex bradycardia noted on telemetry in the ER. Telemetry reviewed, patient with slightly 100-minute of transition to a wide-complex rhythm rate approximately 60. Did review with cardiology, consistent with idioventricular rhythm. Agree with starting metoprolol tartrate 12.5 mg twice daily. Also agree with initiation of Plavix for stent protection. Patient is chest pain free at bedside Potassium 3.7, optimized to 4; magnesium 2.0 goal 2.0 Echo 10/2023: EF 55-60%, no regional wall motion abnormalities. Severe concentric LVH High sensitive troponin is normal - Pt denies chest pain (5) Esophageal cancer: Esophageal cancer EGD 12/2023: Lower esophageal ulcerative mass nonobstructing and partially circumferential seen. Intact gastrostomy with patent G-tube. Benign-appearing intrinsic moderate stenosis of the pylorus which was dilated. 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 Forwarded for additional FISH analysis which was subsequently HER2 FISH negative. Typically tolerate soft bite-size diet. - On chemo with Dr. Begum. Joy on Wednesday, second treatment was held due to blood work. Started in June, last treatment was August 18, restarted tx this past . - G-Tube: Normally gets Boost up to 3-4 times per day and 2x 60cc flushes before and after each boost. Is able to tolerate a soft bite sized diet. No aspiration events per pt and family (6) Malnutrition: Due to cancer and poor intake Nutritional services on board continue some oral supplements Patient still on a combination of G tube and oral feeds Plan Chronic stable issues History of colon cancer: S/p resection. 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 No acute bleeding. DVT prophylaxis: Lovenox Disposition: PCU CODE STATUS: DNR/DNI Diet: Nutrition consulted for G-tube feedings. May have a soft bite sized diet in addition to this Coding Level of Care Code 06643 INP/OBS DISCH >30 MIN Diagnoses Goals of care, counseling/discussion Z71.89 Weakness R53.1 Acute UTI N39.0 CAD (coronary artery disease) I25.10 Malignant neoplasm of lower third of esophagus C15.9 Malignant neoplasm of esophagus location: unspecified location Malnutrition E46 Time Spent (min) 35
--- NOTE | 2024-01-25 18:05 | Palliative Care Consultation ---
Date of Consultation January 25, 2024 Assessment & Plan (1) Dyspnea and respiratory abnormalities: (2) Generalized weakness: (3) Falls frequently: (4) Tobacco pipe smoker: (5) Advanced care planning/counseling discussion: 40min face to face ACP meeting with Steve, his son and his girlfriend of 10+ years at bedside They all live with son in son's home which is a colonial style home with bedrooms upstairs and half bath downstairs Pt is not able to safely traverse the stairs He cannot afford a chair lift which is $300/mo + installation, not covered by insurance per son Family share he has been getting weaker Son terri concerned "he's not tolerating that chemo, I think it's just hurting him more at this point" Girlfriend wants to know why another cancer regimen cannot be initiated and she feels ICI alone might help but she has not spoken with oncology Son states they asked for some home health but could not get it Pt is not being bathed since he started falling bc he cannot get upstairs He is very weak, trouble with all ADLs Girlfriend devoted but physically cannot manage all of his care, son has to work realtime captioner as well they cannot afford private caregivers they do not have DME to help make life easier such as bedside commode etc Son states he has been thinking of buying a trough feeder from [employer] to use as a bathtub for pt bc he cannot get upstairs to where the bathrooms are located and there had not been any help for getting him washed up and cleaned while he has to stay down on the main floor. They have not asked cancer nurses or navigators for help/support/CCP resources. We discussed GOC pt does not want to spend time in hospital or return He prefers to remain at home BUT is open to staying on chemo if offered He states he does want more QOL but he is unwilling to consider hospice at this time though his family has been encouraging a focus more on QOL and comfort, son is terri advocating for hospice at home. Pt does not want rehab or SNF (6) Palliative care by specialist: Introduced Palliative Medicine and explained our role in patient's care. Patient and/or family were receptive to palliative services for goals of care discussions. Reviewed we are different from hospice, a home health nurse visiting service. Plan As above He is being dc now I will arrange RV with me in CCP I have confirmed his CCP onc visit next week I have asked CCP nursing to assist with referral to home health and I have asked navigation to connect with son to review other local support/resources and [facility] resources Thank you for allowing us to participate in the ongoing care of this patient. Please page with any additional concerns. 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 History of colon cancer s/p resection. Also has hx head neck cancer s/p surgical and reconstructive intervention 20 years prior ago. He is now s/p g tube, poor intake, sometimes declines tube feeds declining PS on ICI and had chemo but has been steadily weakening on chemo per family at bedside, signif other of 10+ years and his son, all of them share a home, pt is falling every other day, occ 2 days in a row pt reports overall very weak cannot perform ADLs little to no interest in day to day engagement falling easily, unable to walk without 1-2 max support tells me he feels SOB, sometimes pain mid sternal active smoker, daily pipe tobacco at home, tells me he has no desire to quit poor oral intake, has g tube but this admission occ refused feeds overnight has vocalized to staff he wants "to be done with it already" and son is worried chemo is hurting more than helping Allergies Allergy/AdvReac Type Severity Reaction Status Date / Time No Known Allergies Allergy Verified 12/24/23 08:19 Home Medications Medication Instructions Recorded Confirmed Type rosuvastatin 10 mg tablet 10 mg PO HS 04/09/23 01/21/24 History pantoprazole 40 mg tablet,delayed 40 mg PO BID #60 tabs 04/13/23 01/21/24 Rx release (Protonix) cholecalciferol (vitamin D3) 50 50 mcg PO QAM 09/07/23 01/21/24 History mcg (2,000 unit) capsule (Vitamin D3) tamsulosin 0.4 mg capsule 0.4 mg PO HS #30 caps 09/10/23 01/21/24 Rx lidocaine-prilocaine 2.5 %-2.5 % 1 applic topical DIRECTED PRN 01/21/24 01/21/24 History topical cream Other megestrol 400 mg/10 mL (40 mg/mL) 400 mg PO UD 01/21/24 01/21/24 History oral suspension ciprofloxacin HCl 250 mg tablet 250 mg PO BID 5 days #10 tabs 01/25/24 Rx clopidogrel 75 mg tablet 75 mg PO QAM 30 days #30 tabs 01/25/24 Rx metoprolol tartrate 25 mg tablet 12.5 mg (1/2 x 25 mg) PO BID 30 01/25/24 Rx days #30 tabs Patient History Medical History History of pressure ulcer resolved Hx of upper gastrointestinal hemorrhage 04/2023 Hx of myocardial infarction 2009 Follows with [facility] cardiology HTN (hypertension) Hyperlipidemia CAD (coronary artery disease) 2009- stent(s) ~2020 ( [facility])- 2 stents Multiple caths/stents including the above noted, Total of 9 stents per spouse Gastrostomy present Syncope and collapse (10/2023) caused by UTI, was seen and treated in [place] ER History of upper gastrointestinal bleeding 04/2023 Hx of esophageal malignancy dx 04/2023, completed chemo and radiation 08/2023 History of colon cancer Dx 2022 > colon resection Interstitial lung disease Chronic cough Psoriasis GERD (gastroesophageal reflux disease) 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), 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 Surgical History Encounter for PEG (percutaneous endoscopic gastrostomy) (06/17/23) p Insertion Access Port Left Subclavian with Fluoroscopy(Left) - Ritchie Orozco, DO s Esophagogastroduodenoscopy with Insertion of Gastrostomy Tube(Not Applica ble) - Ritchie Orozco DO Port-A-Cath in place (06/17/23) p Insertion Access Port Left Subclavian with Fluoroscopy(Left) - Ritchie Orozco, s Esophagogastroduodenoscopy with Insertion of Gastrostomy Tube(Not Applicable) - Ritchie Orozco, DO History of esophagogastroduodenoscopy (EGD) Hx of colonoscopy History of nasal surgery Summer 2022 (jaw/nasal surgery) History of cardiac cath 2009- stent(s) ~2020 (SANJEEV Jacques)- 2 stents Multiple caths/stents including the above noted, Total of 11 stents per spouse History of colon resection Hx of oral surgery Jaw surgery 2012 (r/t cancer) Status post aortic coarctation stent placement 10+ years ago Family History Sister Diabetes Sister Cancer Breast Brother Cancer Lung Brother Cancer Colon Social History Smoking Status: Current every day smoker Tobacco Type: Pipe Cigarettes Per Day: PIPE- ADVISED; Second Hand Exposure: Yes; Do You Dip or Chew Tobacco: No; Hx Alcohol Use: Yes Alcohol type: beer Hx Substance Use: No Preferred Language: Vietnamese Communication Ability: Effective Visual Impairment: Partially Limited Hearing Ability: Normal Debt Counselor Required: No Beliefs That Will Affect Care: None marital status: Married2 Current Living Situation: Family current occupational status: disabled Feels Safe at Home: Yes Diet Comment: soft foods during the past year weight has: decreased > 10 lbs Assistive Devices: Walker Review of Systems Review of Systems: All systems reviewed & are unremarkable except as noted in Subjective Physical Exam Constitutional: + acute distress, + cachectic, + behavio ral limitations, + physical limitations, + frail appearing and cooperative Eyes: PERRL, conjunctivae normal, anicteric sclerae ENMT: dentition poor mm dry left facial weakness with left facial well healed scar from prior head and neck cancer Neck: shotty adenopathy no stridor Respiratory: inc effort, dyspnea at rest with use of accessory muscles noted SOB with conversation coarse breath sounds, diminished overall barrel chest Cardiovascular: tachy s1s2 no gross JVD Gastrointestinal (Abdomen): scaphoid +PEG BS+ Musculoskeletal: gen weakness Skin: +pallor +dry Neurologic: AAOx3 Cooperative with exam Results & Data Vital Signs (Past 12 Hours) Vital Signs Temp Pulse Pulse Resp BP BP Pulse Ox 01/25/24 13:09 36.3 C L 74 20 110/69 131/77 97 01/25/24 11:44 74 20 110/69 97 01/25/24 08:37 68 01/25/24 08:37 O2 Del Method 01/25/24 13:09 01/25/24 11:44 Room Air 01/25/24 08:37 01/25/24 08:37 Room Air Laboratory Results 01/25/24 01/24/24 01/23/24 Range/Units 08:00 05:55 06:07 WBC 7.59 7.90 7.52 (4.8-10.8) K/ul RBC 4.07 L 4.25 L 4.09 L (4.70-6.10) M/uL Hgb 11.8 L 12.0 L 11.7 L (14.0-18.0) g/dl Hct 35.2 L 37.2 L 34.6 L (42.0-52.0) % MCV 86.5 87.5 84.6 (80.0-100.0) fL MCH 29.0 28.2 28.6 (25.0-34.0) pg MCHC 33.5 32.3 33.8 (32.0-36.0) g/dL RDW Std Deviation 52.9 H 52.9 H 49.8 H (36.4-46.3) fL RDW Coeff of Monet 16.9 H 16.7 H 16.1 H (11.5-14.5) % Plt Count 252 273 279 (130-400) K/uL MPV 9.0 L 8.9 L 8.8 L (9.4-12.4) fL Immature Gran % (Auto) 0.4 0.4 % Neut % (Auto) 61.1 64.1 % Lymph % (Auto) 21.9 18.9 % [place] % (Auto) 13.4 13.3 % Eos % (Auto) 2.7 2.8 % Baso % (Auto) 0.5 0.5 % Neut # (Auto) 4.83 4.82 (1.40-6.50) K/uL Lymph # (Auto) 1.73 1.42 (1.20-3.40) K/uL [place] # (Auto) 1.06 H 1.00 H (0.11-0.59) K/uL Eos # (Auto) 0.21 0.21 (0.00-0.50) K/uL Baso # (Auto) 0.04 0.04 (0.00-0.20) K/uL Immature Gran # (Auto) 0.03 0.03 (0.01-0.20) K/uL PT (9.0-12.0) Seconds INR (0.9-1.1) APTT (21-31) Seconds PTT Ratio VBG pH (7.36-7.41) VBG pCO2 (38-50) mmHg VBG pO2 mmHg VBG HCO3 mmol/L VBG O2 Saturation % VBG Base Excess mEq/L Sodium 138 136 137 (136-145) mmol/L Potassium 3.8 3.6 3.6 (3.5-5.1) mmol/L Chloride 110 H 109 H 111 H (98-107) mmol/L Carbon Dioxide 22 20 L 20 L (21-32) mmol/L Anion Gap 6 7 6 (3-11) BUN 23 17 13 (6-23) mg/dl Creatinine 0.65 0.63 0.54 L (0.6-1.4) mg/dl Est Cr Clr Drug Dosing 88.6 90.7 102.6 Est GFR ( Amer) 109.5 110.9 118.2 ml/min Est GFR (Non-Af Amer) 94.5 95.7 102.0 ml/min BUN/Creatinine Ratio 35.4 H 27.0 H 24.1 H (10-20) Glucose 94 84 88 (70-99(Fasting)) mg/dl Lactate (0.4-2.0) mmol/L Calcium 8.7 8.7 8.6 (8.6-10.3) mg/dl Magnesium (1.7-2.4) mg/dl Total Bilirubin (0.2-1.0) mg/dl Direct Bilirubin (0-0.2) mg/dl AST (13-39) U/L ALT (7-52) U/L Alkaline Phosphatase (34-104) U/L Troponin I High Sens (0-20) pg/ml Total Protein (6.0-8.3) gm/dl Albumin (3.4-5.0) gm/dl Procalcitonin (0-0.5) ng/ml Urine Color Urine Appearance (Clear) Urine pH (4.5-7.5) Ur Specific [place] (1.000-1.030) Urine Protein (Negative) Urine Glucose (UA) (Negative) Urine Ketones (Negative) Urine Blood (Negative) Urine Nitrite (Negative) Urine Bilirubin (Negative) Urine Urobilinogen (Negative) Ur Leukocyte Esterase (Negative) Urine WBC (Auto) (0-5) /hpf Urine RBC (Auto) (0-2) /hpf U Hyaline Cast (Auto) (0-2) /lpf U Epithel Cells (Auto) (0-2) /hpf Urine Bacteria (Auto) (None Seen) Adenovirus (PCR) (NotDetected) B. pertussis DNA (PCR) (NotDetected) B.parapertussis DNA PCR (NotDetected) C. pneumoniae DNA (PCR) (NotDetected) Coronavirus OC43 (PCR) (NotDetected) Coronavirus HKU1 (PCR) (NotDetected) Coronavirus 229E (PCR) (NotDetected) SARS-CoV-2 (PCR) (NotDetected) Coronavirus NL63 (PCR) (NotDetected) Human Metapneumovir PCR (NotDetected) Influenza Type A (PCR) (NotDetected) Influenza Type B (PCR) (NotDetected) M. pneumoniae (PCR) (NotDetected) Parainfluenza 1 (PCR) (NotDetected) Parainfluenza 2 (PCR) (NotDetected) Parainfluenza 3 (PCR) (NotDetected) Parainfluenza 4 (PCR) (NotDetected) RSV (PCR) (NotDetected) Entero/Rhino (PCR) (NotDetected) 01/22/24 01/21/24 01/21/24 Range/Units 07:42 11:03 09:07 WBC 7.08 (4.8-10.8) K/ul RBC 3.93 L (4.70-6.10) M/uL Hgb 11.0 L (14.0-18.0) g/dl Hct 34.4 L (42.0-52.0) % MCV 87.5 (80.0-100.0) fL MCH 28.0 (25.0-34.0) pg MCHC 32.0 (32.0-36.0) g/dL RDW Std Deviation 51.8 H (36.4-46.3) fL RDW Coeff of Monet 16.2 H (11.5-14.5) % Plt Count 238 (130-400) K/uL MPV 8.4 L (9.4-12.4) fL Immature Gran % (Auto) 0.4 % Neut % (Auto) 67.0 % Lymph % (Auto) 18.6 % [place] % (Auto) 11.6 % Eos % (Auto) 2.1 % Baso % (Auto) 0.3 % Neut # (Auto) 4.74 (1.40-6.50) K/uL Lymph # (Auto) 1.32 (1.20-3.40) K/uL [place] # (Auto) 0.82 H (0.11-0.59) K/uL Eos # (Auto) 0.15 (0.00-0.50) K/uL Baso # (Auto) 0.02 (0.00-0.20) K/uL Immature Gran # (Auto) 0.03 (0.01-0.20) K/uL PT (9.0-12.0) Seconds INR (0.9-1.1) APTT (21-31) Seconds PTT Ratio VBG pH 7.38 (7.36-7.41) VBG pCO2 35 L (38-50) mmHg VBG pO2 29 mmHg VBG HCO3 21 mmol/L VBG O2 Saturation < 60.0 % VBG Base Excess -3.8 mEq/L Sodium 136 (136-145) mmol/L Potassium 4.0 (3.5-5.1) mmol/L Chloride 110 H (98-107) mmol/L Carbon Dioxide 20 L (21-32) mmol/L Anion Gap 6 (3-11) BUN 13 (6-23) mg/dl Creatinine 0.65 (0.6-1.4) mg/dl Est Cr Clr Drug Dosing 85.3 Est GFR ( Amer) 109.5 ml/min Est GFR (Non-Af Amer) 94.5 ml/min BUN/Creatinine Ratio 20.0 (10-20) Glucose 84 (70-99(Fasting)) mg/dl Lactate 1.3 (0.4-2.0) mmol/L Calcium 8.6 (8.6-10.3) mg/dl Magnesium 2.0 (1.7-2.4) mg/dl Total Bilirubin (0.2-1.0) mg/dl Direct Bilirubin (0-0.2) mg/dl AST (13-39) U/L ALT (7-52) U/L Alkaline Phosphatase (34-104) U/L Troponin I High Sens (0-20) pg/ml Total Protein (6.0-8.3) gm/dl Albumin (3.4-5.0) gm/dl Procalcitonin (0-0.5) ng/ml Urine Color Yellow Urine Appearance Cloudy A (Clear) Urine pH 6.5 (4.5-7.5) Ur Specific [place] 1.021 (1.000-1.030) Urine Protein Negative (Negative) Urine Glucose (UA) Negative (Negative) Urine Ketones Negative (Negative) Urine Blood Negative (Negative) Urine Nitrite Negative (Negative) Urine Bilirubin Negative (Negative) Urine Urobilinogen Negative (Negative) Ur Leukocyte Esterase 3+ H (Negative) Urine WBC (Auto) 21-50 H (0-5) /hpf Urine RBC (Auto) 0-2 (0-2) /hpf U Hyaline Cast (Auto) 0-2 (0-2) /lpf U Epithel Cells (Auto) 0-2 (0-2) /hpf Urine Bacteria (Auto) 4+ H (None Seen) Adenovirus (PCR) Not Detected (NotDetected) B. pertussis DNA (PCR) Not Detected (NotDetected) B.parapertussis DNA PCR Not Detected (NotDetected) C. pneumoniae DNA (PCR) Not Detected (NotDetected) Coronavirus OC43 (PCR) Not Detected (NotDetected) Coronavirus HKU1 (PCR) Not Detected (NotDetected) Coronavirus 229E (PCR) Not Detected (NotDetected) SARS-CoV-2 (PCR) Not Detected (NotDetected) Coronavirus NL63 (PCR) Not Detected (NotDetected) Human Metapneumovir PCR Not Detected (NotDetected) Influenza Type A (PCR) Not Detected (NotDetected) Influenza Type B (PCR) Not Detected (NotDetected) M. pneumoniae (PCR) Not Detected (NotDetected) Parainfluenza 1 (PCR) Not Detected (NotDetected) Parainfluenza 2 (PCR) Not Detected (NotDetected) Parainfluenza 3 (PCR) Not Detected (NotDetected) Parainfluenza 4 (PCR) Not Detected (NotDetected) RSV (PCR) Not Detected (NotDetected) Entero/Rhino (PCR) Not Detected (NotDetected) 01/21/24 Range/Units 08:48 WBC 8.75 (4.8-10.8) K/ul RBC 4.36 L (4.70-6.10) M/uL Hgb 12.3 L (14.0-18.0) g/dl Hct 38.5 L (42.0-52.0) % MCV 88.3 (80.0-100.0) fL MCH 28.2 (25.0-34.0) pg MCHC 31.9 L (32.0-36.0) g/dL RDW Std Deviation 52.4 H (36.4-46.3) fL RDW Coeff of Monet 16.2 H (11.5-14.5) % Plt Count 307 (130-400) K/uL MPV 8.5 L (9.4-12.4) fL Immature Gran % (Auto) 0.3 % Neut % (Auto) 62.6 % Lymph % (Auto) 21.9 % [place] % (Auto) 12.5 % Eos % (Auto) 2.4 % Baso % (Auto) 0.3 % Neut # (Auto) 5.47 (1.40-6.50) K/uL Lymph # (Auto) 1.92 (1.20-3.40) K/uL [place] # (Auto) 1.09 H (0.11-0.59) K/uL Eos # (Auto) 0.21 (0.00-0.50) K/uL Baso # (Auto) 0.03 (0.00-0.20) K/uL Immature Gran # (Auto) 0.03 (0.01-0.20) K/uL PT 11.1 (9.0-12.0) Seconds INR 1.0 (0.9-1.1) APTT 27 (21-31) Seconds PTT Ratio 1.0 VBG pH (7.36-7.41) VBG pCO2 (38-50) mmHg VBG pO2 mmHg VBG HCO3 mmol/L VBG O2 Saturation % VBG Base Excess mEq/L Sodium 137 (136-145) mmol/L Potassium 3.7 (3.5-5.1) mmol/L Chloride 109 H (98-107) mmol/L Carbon Dioxide 21 (21-32) mmol/L Anion Gap 7 (3-11) BUN 15 (6-23) mg/dl Creatinine 0.73 (0.6-1.4) mg/dl Est Cr Clr Drug Dosing Not Reportable Est GFR ( Amer) 104.4 ml/min Est GFR (Non-Af Amer) 90.1 ml/min BUN/Creatinine Ratio 20.5 H (10-20) Glucose 96 (70-99(Fasting)) mg/dl Lactate (0.4-2.0) mmol/L Calcium 9.1 (8.6-10.3) mg/dl Magnesium 2.0 (1.7-2.4) mg/dl Total Bilirubin 0.6 (0.2-1.0) mg/dl Direct Bilirubin 0.2 (0-0.2) mg/dl AST 19 (13-39) U/L ALT 11 (7-52) U/L Alkaline Phosphatase 48 (34-104) U/L Troponin I High Sens 9.5 (0-20) pg/ml Total Protein 6.6 (6.0-8.3) gm/dl Albumin 3.4 (3.4-5.0) gm/dl Procalcitonin 0.03 (0-0.5) ng/ml Urine Color Urine Appearance (Clear) Urine pH (4.5-7.5) Ur Specific [place] (1.000-1.030) Urine Protein (Negative) Urine Glucose (UA) (Negative) Urine Ketones (Negative) Urine Blood (Negative) Urine Nitrite (Negative) Urine Bilirubin (Negative) Urine Urobilinogen (Negative) Ur Leukocyte Esterase (Negative) Urine WBC (Auto) (0-5) /hpf Urine RBC (Auto) (0-2) /hpf U Hyaline Cast (Auto) (0-2) /lpf U Epithel Cells (Auto) (0-2) /hpf Urine Bacteria (Auto) (None Seen) Adenovirus (PCR) (NotDetected) B. pertussis DNA (PCR) (NotDetected) B.parapertussis DNA PCR (NotDetected) C. pneumoniae DNA (PCR) (NotDetected) Coronavirus OC43 (PCR) (NotDetected) Coronavirus HKU1 (PCR) (NotDetected) Coronavirus 229E (PCR) (NotDetected) SARS-CoV-2 (PCR) (NotDetected) Coronavirus NL63 (PCR) (NotDetected) Human Metapneumovir PCR (NotDetected) Influenza Type A (PCR) (NotDetected) Influenza Type B (PCR) (NotDetected) M. pneumoniae (PCR) (NotDetected) Parainfluenza 1 (PCR) (NotDetected) Parainfluenza 2 (PCR) (NotDetected) Parainfluenza 3 (PCR) (NotDetected) Parainfluenza 4 (PCR) (NotDetected) RSV (PCR) (NotDetected) Entero/Rhino (PCR) (NotDetected) Diagnostic Findings Cervical Spine CT 01/21/24 08:38 CT OF THE CERVICAL SPINE WITHOUT CONTRAST CLINICAL HISTORY: fall COMPARISON STUDY: Neck CT May 19, 2018. PET/CT October 27, 2023. TECHNIQUE: Helical axial images of the cervical spine were obtained without IV contrast. Sagittal and coronal reconstructions were viewed. Automated exposure control was utilized for the study. A dose lowering technique was utilized adhering to the principles of ALARA. FINDINGS: Alignment of the cervical spine is anatomic. Vertebral body heights are maintained. No acute cervical spine fracture or subluxation is present. There is no prevertebral edema. Facet joints are intact. Mild multilevel degenerative changes within the cervical spine are present. IMPRESSION: No acute cervical spine fracture or subluxation. ACT 112: Negative or not required by law. Electronically signed by: Ernie Calderon M.D. 01/21/2024 9:[address] 01/21/24 08:38 CT head/brain wo con CLINICAL HISTORY: fall Technique: Contiguous axial CT images of the head were acquired from the base of the skull to the vertex without intravenous contrast administration. Images were viewed in brain, subdural and bone windows. Automated dose lowering techniques and/or adjustment according to patient size were utilized for this exam. Comparison: Comparison is made to CT head 10/10/2023 Findings: Areas of decreased attenuation are present in the periventricular and subcortical white matter bilaterally consistent with small vessel ischemic disease. Generalized cerebral atrophy with commensurate enlargement of the ventricles, sulci, and cisterns is also present. There is no acute intracranial hemorrhage or evidence of acute territorial infarction. No shift of the midline structures, mass effect, or extra-axial abnormalities are shown. Atherosclerotic calcifications are present in the intracranial segments of the internal carotid arteries. Focal encephalomalacia is again seen in the bilateral basal ganglia. Imaged portions of the paranasal sinuses and mastoid air cells are clear. The orbits appear normal. There are no acute fractures of the calvaria. Scalp swelling is seen in the posterior soft tissues. Impression: No acute intracranial hemorrhage or skull fractures. Scalp swelling is seen in the posterior soft tissues. ACT 112: Negative or not required by law. Electronically signed by: Ricky Hawk M.D. 01/21/2024 9:42 AM Pelvis X-Ray 01/21/24 08:38 XR pelvis 1-2V routine CLINICAL HISTORY: fall COMPARISON: CT of the abdomen and pelvis September 08, 2023. PET/CT October 27, 2023. FINDINGS: Sacroiliac joints and symphysis pubis are intact. No acute fractures within the pelvis or hips are identified. There is a moderate amount stool within the rectum. No osseous lesions are identified. Visualized bowel gas pattern is unremarkable. IMPRESSION: No fractures within the pelvis or hips. ACT 112: Negative or not required by law. Electronically signed by: Ernie Calderon M.D. 01/21/2024 9:05 AM Chest X-Ray 01/21/24 08:39 XR chest 1V portable CLINICAL HISTORY: Sepsis TECHNIQUE: Single frontal radiograph of the chest was obtained. Comparison: Comparison is made to chest radiograph 10/10/2023 FINDINGS: A port catheter is seen. Cardiomegaly is noted. The aortic arch is calcified. Reticular interstitial opacities are seen. No evidence of pleural effusion or pneumothorax. IMPRESSION: Interstitial thickening is seen without airspace disease to suggest pneumonia. ACT 112: Negative or not required by law. Electronically signed by: Ricky Hawk M.D. 01/21/2024 8:59 AM PG Care Time/CCT Total # of Minutes Spent Total Time Spent with Patient: Total time spent is greater than 50% in coordination of care (as documented) at patient's floor/unit and/or counseling patient: I spent 120 minutes overall addressing this case: 20 min in medical data review/discussion with referring provider(s) and/or preparation for the visit 25 min in direct interaction with the patient/exam 40 min in Advance Care Planning/Goals of Care discussions as detailed above in note (must be >16min) 15 min in subsequent review and synthesis of assessment and plan 20 min communicating with other providers regarding the patient's case: nursing, oncology, ccp nursing, ccp scheduling, primary team Advanced Care Planning 76966 Advanced Care Planning 30 Min [id number] Advanced Care Planning Additional 30 [place] [address] IN/OBS CONSULT LVL 5,80M (25 - SIGNIFICANT, SEPARATELY IDENTIFIABLE ) Patient Type New Medical Decision Making High Complexity Diagnoses Dyspnea and respiratory abnormalities R06.00; R06.89 Generalized weakness R53.1 Falls frequently R29.6 Tobacco pipe smoker F17.290 Advanced care planning/counseling discussion Z71.89 Palliative care by specialist Z51.5 Additional Codes Advanced Care Planning - 84484 Advanced Care Planning 30 Min: [id number] Advanced Care Planning 30 Min ([id number]) Advanced Care Planning - 82341 Advanced Care Planning Additional 30 Min: [id number] Advanced Care Planning Additional 30 Min ([id number])
--- NOTE | 2024-01-27 11:16 | Coding Query ---
MALNUTRITION To promote full compliance with coding requirements relating to patient care, physician participation is requested in all cases of chinchilla farmer uncertainty. Please assist us with the question(s) below: Please place an X within the parenthesis (x). If other, please document: "Malnutrition" is documented in this record. If possible, please check the box that provides a more specific diagnosis: ( ) Mild malnutrition (x ) Moderate malnutrition ( ) Severe malnutrition ( ) Protein malnutrition (kwashiorkor) ( ) Severe protein calorie malnutrition ( ) Protein calorie malnutrition, unspecified ( ) Other (please specify): Was this diagnosis present on admission? Please place an X within the parenthesis (x). ( x) Present on admission ( ) Not present on admission ( ) Unable to be clinically determined Thank you Brenda BURGESS
== END 2024-01-25 14:10 | disposition home or self-care (01) | DRG 690 ==
LOC: ED 08:24 → SUATTDRO 15:03 → EDINP 15:03 → 2E 17:49